=== PATIENT | female | born 1955 | race Caucasian/White ===

== ENCOUNTER 2020-08-23 09:00 | Outpatient (REF) | payer MEDICARE, SELFPAY ==
[2020-08-23 13:44] LABS: MANUAL DIFF FLAG NO
[2020-08-23 13:48] LABS: Basophils Percent Auto 0.3 % (0-2); Eosinophils Absolute Auto 0.4 X10*3/uL (0.0-0.4); Eosinophils Percent Auto 4.6 % (0-4); Hematocrit 38.9 % (37-47); Imm Gran Abs Auto 0.03 X10*3/uL (0.00-0.03); Imm Gran Pct Auto 0.4 % (0.0-0.4); Lymphocytes Absolute Auto 2.5 X10*3/uL (1.2-4.9); Lymphocytes Percent Auto 33.7 % (20-40); Mean Corpuscular HGB Conc 33.4 g/dl (31.0-35.0); Mean Corpuscular Hemoglobin 31.9 pg (27.0-33.0); Mean Corpuscular Volume 95.6 fL (80-98); Mean Platelet Volume 11.1 fL (9.4-12.3); Monocytes Absolute Auto 0.9 X10*3/uL (0.1-1.2); Monocytes Percent Auto 11.3 % (2-11); Neutrophils Absolute Auto 3.7 X10*3/uL (2.0-8.3); Neutrophils Percent Auto 49.7 % (45-73); Platelet Count 224 X10*3/uL (160-400); Red Blood Count 4.07 X10*6/uL (4.20-5.50); Red Cell Distribution Width 12.7 % (11.0-16.0); White Blood Count 7.5 X10*3/uL (4.8-10.8)
[2020-08-23 13:57] LABS: Estimated Average Glucose 160 mg/dL; Hemoglobin A1c % 7.2 %
[2020-08-23 14:08] LABS: Alanine Aminotransferase 40 U/L (0-31); Albumin Level 4.1 g/dL (3.5-5.0); Alkaline Phosphatase 62 U/L (39-117); Anion Gap 10 (12-20); Aspartate Amino Transferase 22 U/L (5-31); Bilirubin Total 0.6 mg/dL (0.0-1.0); Blood Urea Nitrogen 11 mg/dL (9-16); Calcium 8.5 mg/dL (8.4-10.2); Carbon Dioxide 28 mmol/L (22-29); Chloride 107 mmol/L (96-108); Cholesterol 145 mg/dL; Estimated Glomerular Filt Rate > 60; Glucose Fasting 89 mg/dL (60-99); HDL Cholesterol 44 mg/dL; LDL Cholesterol Calculated 80 mg/dl; Potassium 4.4 mmol/l (3.3-5.1); Sodium 141 mmol/L (135-145); Total Protein 6.1 g/dL (6.5-8.0); Triglycerides 109 mg/dL
== END 2020-08-23 09:01 | disposition home or self-care (01) ==
LOC: HO.10HDL 09:00
PROVIDERS: PCP Internal Medicine Medical Oncology; Visit Provider Internal Medicine Medical Oncology
DX: E11.9 Type 2 diabetes mellitus without complications (principal); I10 Essential (primary) hypertension; E78.2 Mixed hyperlipidemia
CPT/HCPCS: 36415; 80053; 80061; 83036; 85025

== ENCOUNTER 2020-09-26 12:45 | Outpatient (REF) | payer MEDICARE, SELFPAY | END 2020-09-26 12:46 | disposition home or self-care (01) | LOC: HO.LAB 12:45 | PROVIDERS: Visit Provider Internal Medicine | DX: Z20.822 Contact with and (suspected) exposure to COVID-19 (principal) | CPT/HCPCS: 36415; C9803; U0003; U0005 ==

== ENCOUNTER 2020-11-23 09:32 | Outpatient (REF) | payer MEDICARE, SELFPAY ==
[2020-11-23 10:03] LABS: MANUAL DIFF FLAG NO
[2020-11-23 10:19] LABS: Basophils Percent Auto 0.3 % (0-2); Eosinophils Absolute Auto 0.4 X10*3/uL (0.0-0.4); Eosinophils Percent Auto 7.4 % (0-4); Hematocrit 37.8 % (37-47); Hemoglobin 12.6 g/dl (12.0-16.0); Imm Gran Abs Auto 0.02 X10*3/uL (0.00-0.03); Imm Gran Pct Auto 0.3 % (0.0-0.4); Lymphocytes Absolute Auto 2.5 X10*3/uL (1.2-4.9); Mean Corpuscular HGB Conc 33.3 g/dl (31.0-35.0); Mean Corpuscular Hemoglobin 31.4 pg (27.0-33.0); Mean Corpuscular Volume 94.3 fL (80-98); Mean Platelet Volume 10.5 fL (9.4-12.3); Monocytes Absolute Auto 0.6 X10*3/uL (0.1-1.2); Monocytes Percent Auto 9.9 % (2-11); Neutrophils Absolute Auto 2.4 X10*3/uL (2.0-8.3); Neutrophils Percent Auto 40.1 % (45-73); Platelet Count 220 X10*3/uL (160-400); Red Blood Count 4.01 X10*6/uL (4.20-5.50); Red Cell Distribution Width 12.6 % (11.0-16.0)
[2020-11-23 10:34] LABS: Estimated Average Glucose 163 mg/dL; Hemoglobin A1C 179.3117 umol/L; Hemoglobin A1c % 7.3 %
[2020-11-23 10:48] LABS: Creatinine Urine 71.24 mg/dL; Microalbum/Creatinine Ratio Ur 16.8 ug/mg cr
[2020-11-23 10:54] LABS: Alanine Aminotransferase 32 U/L (0-31); Alkaline Phosphatase 60 U/L (39-117); Anion Gap 14 (12-20); Aspartate Amino Transferase 24 U/L (5-31); Bilirubin Total 0.6 mg/dL (0.0-1.0); Blood Urea Nitrogen 15 mg/dL (9-16); Calcium 8.9 mg/dL (8.4-10.2); Carbon Dioxide 28 mmol/L (22-29); Chloride 103 mmol/L (96-108); Cholesterol 129 mg/dL; Estimated Glomerular Filt Rate > 60; Glucose Fasting 115 mg/dL (60-99); HDL Cholesterol 40 mg/dL; LDL Cholesterol Calculated 57 mg/dl; Potassium 4.8 mmol/L (3.3-5.1); Sodium 140 mmol/L (135-145); Total Protein 6.1 g/dL (6.5-8.0); Triglycerides 163 mg/dL
== END 2020-11-23 09:33 | disposition home or self-care (01) ==
LOC: HO.10HDL 09:32
PROVIDERS: Visit Provider Internal Medicine Medical Oncology
DX: E11.29 Type 2 diabetes mellitus with other diabetic kidney complication (principal); I10 Essential (primary) hypertension; E78.2 Mixed hyperlipidemia
CPT/HCPCS: 36415; 80053; 80061; 82043; 83036; 85025

== ENCOUNTER 2021-03-28 08:53 | Outpatient (REF) | payer MEDICARE, SELFPAY ==
[2021-03-28 10:28] LABS: MANUAL DIFF FLAG NO
[2021-03-28 10:41] LABS: Basophils Percent Auto 0.3 % (0-2); Eosinophils Absolute Auto 0.5 X10*3/uL (0.0-0.4); Eosinophils Percent Auto 7.2 % (0-4); Hemoglobin 13.2 g/dl (12.0-16.0); Imm Gran Abs Auto 0.02 X10*3/uL (0.00-0.03); Imm Gran Pct Auto 0.3 % (0.0-0.4); Lymphocytes Absolute Auto 2.2 X10*3/uL (1.2-4.9); Lymphocytes Percent Auto 33.5 % (20-40); Mean Corpuscular Hemoglobin 31.4 pg (27.0-33.0); Mean Platelet Volume 10.9 fL (9.4-12.3); Monocytes Absolute Auto 0.7 X10*3/uL (0.1-1.2); Monocytes Percent Auto 11.4 % (2-11); Neutrophils Percent Auto 47.3 % (45-73); Platelet Count 211 X10*3/uL (160-400); Red Blood Count 4.21 X10*6/uL (4.20-5.50); Red Cell Distribution Width 12.7 % (11.0-16.0); White Blood Count 6.4 X10*3/uL (4.8-10.8)
[2021-03-28 10:50] LABS: Alanine Aminotransferase 36 U/L (0-31); Albumin Level 4.2 g/dL (3.5-5.0); Alkaline Phosphatase 65 U/L (39-117); Anion Gap 14 (12-20); Aspartate Amino Transferase 32 U/L (5-31); Bilirubin Total 0.9 mg/dL (0.0-1.0); Blood Urea Nitrogen 12 mg/dL (9-16); Calcium 9.2 mg/dL (8.4-10.2); Carbon Dioxide 25 mmol/L (22-29); Chloride 108 mmol/L (96-108); Cholesterol 139 mg/dL; Estimated Glomerular Filt Rate > 60; Glucose Fasting 96 mg/dL (60-99); HDL Cholesterol 45 mg/dL; LDL Cholesterol Calculated 64 mg/dl; Potassium 4.5 mmol/L (3.3-5.1); Sodium 142 mmol/L (135-145); Total Protein 6.5 g/dL (6.5-8.0); Triglycerides 154 mg/dL
[2021-03-28 10:57] LABS: Estimated Average Glucose 192 mg/dL; Hemoglobin A1c % 8.3 %
[2021-03-28 11:15] LABS: Microalbum/Creatinine Ratio Ur 34.4 ug/mg cr
== END 2021-03-28 08:54 | disposition home or self-care (01) ==
LOC: HO.10HDL 08:53
PROVIDERS: PCP Internal Medicine Medical Oncology; Visit Provider Internal Medicine Medical Oncology
DX: E11.9 Type 2 diabetes mellitus without complications (principal); I10 Essential (primary) hypertension; E66.9 Obesity, unspecified
CPT/HCPCS: 36415; 80053; 80061; 82043; 83036; 85025

== ENCOUNTER 2021-04-26 10:17 | Outpatient (REF) | payer MEDICARE, SELFPAY ==
--- NOTE | ~2021-04-26 | MM_ITS ---
MM/MM tomosynthesis screening BI IMPRESSION: No mammographic evidence of malignancy. ASSESSMENT: BI-RADS 2: Benign RECOMMENDATION: Routine annual mammography screening. This patient's information was entered into a reminder system with a target due date for their next mammogram. EXAMINATION: MM SCREENING DIGITAL BREAST TOMOSYNTHESIS, BILATERAL CLINICAL INFORMATION: Screening. Asymptomatic. The lifetime risk of breast cancer based on the Tyrer-Cuzick Model is 10%. COMPARISON: Outside mammography: 04/15/2020, 04/10/2019, 04/04/2018 ([facility]). TECHNIQUE: Digital breast tomosynthesis is performed in both the craniocaudal and mediolateral oblique views along with computer-aided detection (CAD). Synthesized 2D images are generated from the tomosynthesis. FINDINGS: There are scattered areas of fibroglandular density (ACR BI-RADS breast composition Category b). Parenchymal pattern is similar to prior outside exams. There is no developing density or interval mass or architectural abnormality. There are some regional ductal secretory calcifications upper outer right breast. The axilla and skin contours are unremarkable.
== END 2021-04-26 10:18 | disposition home or self-care (01) ==
LOC: HO.MAMMO 10:17
PROVIDERS: PCP Internal Medicine Medical Oncology; Visit Provider Internal Medicine Medical Oncology
DX: Z12.31 Encounter for screening mammogram for malignant neoplasm of breast (principal)
CPT/HCPCS: 77063; 77067

== ENCOUNTER 2021-07-26 08:05 | Outpatient (REF) | payer MEDICARE, SELFPAY ==
[2021-07-26 10:11] LABS: MANUAL DIFF FLAG NO
[2021-07-26 10:17] LABS: Basophils Percent Auto 0.3 % (0-2); Eosinophils Absolute Auto 0.4 X10*3/uL (0.0-0.4); Eosinophils Percent Auto 6.6 % (0-4); Hematocrit 40.1 % (37.0-47.0); Hemoglobin 13.3 g/dl (12.0-16.0); Imm Gran Abs Auto 0.02 X10*3/uL (0.00-0.03); Imm Gran Pct Auto 0.3 % (0.0-0.4); Lymphocytes Absolute Auto 2.4 X10*3/uL (1.2-4.9); Mean Corpuscular HGB Conc 33.2 g/dl (31.0-35.0); Mean Corpuscular Hemoglobin 31.7 pg (27.0-33.0); Mean Corpuscular Volume 95.7 fL (80.0-98.0); Mean Platelet Volume 11.1 fL (9.4-12.3); Monocytes Absolute Auto 0.7 X10*3/uL (0.1-1.2); Monocytes Percent Auto 10.4 % (2-11); Neutrophils Absolute Auto 2.9 x10*3/uL (2.0-8.3); Neutrophils Percent Auto 45.4 % (45-73); Platelet Count 209 X10*3/uL (160-400); Red Blood Count 4.19 X10*6/uL (4.20-5.50); Red Cell Distribution Width 12.5 % (11.0-16.0); White Blood Count 6.4 X10*3/uL (4.8-10.8)
[2021-07-26 10:27] LABS: Estimated Average Glucose 189 mg/dL; Hemoglobin A1c % 8.2 %
[2021-07-26 10:58] LABS: Alanine Aminotransferase 40 U/L (0-31); Albumin Level 4.2 g/dL (3.5-5.0); Alkaline Phosphatase 67 U/L (39-117); Anion Gap 14 (12-20); Aspartate Amino Transferase 32 U/L (5-31); Bilirubin Total 0.7 mg/dL (0.0-1.0); Blood Urea Nitrogen 15 mg/dL (9-16); Calcium 9.5 mg/dL (8.4-10.2); Carbon Dioxide 26 mmol/L (22-29); Chloride 106 mmol/L (96-108); Cholesterol 152 mg/dL; Estimated Glomerular Filt Rate > 60; Glucose Fasting 107 mg/dL (60-99); HDL Cholesterol 45 mg/dL; LDL Cholesterol Calculated 81 mg/dl; Potassium 4.4 mmol/L (3.3-5.1); Sodium 142 mmol/L (135-145); Total Protein 6.5 g/dL (6.5-8.0); Triglycerides 134 mg/dL
== END 2021-07-26 08:06 | disposition home or self-care (01) ==
LOC: HO.10HDL 08:05
PROVIDERS: Visit Provider Internal Medicine Medical Oncology
DX: E11.9 Type 2 diabetes mellitus without complications (principal); E78.2 Mixed hyperlipidemia; E66.9 Obesity, unspecified
CPT/HCPCS: 36415; 80053; 80061; 83036; 85025

== ENCOUNTER 2021-10-27 08:37 | Outpatient (REF) | payer MEDICARE, SELFPAY ==
[2021-10-27 12:06] LABS: MANUAL DIFF FLAG NO
[2021-10-27 12:08] LABS: Basophils Percent Auto 0.3 % (0-2); Eosinophils Absolute Auto 0.5 X10*3/uL (0.0-0.4); Eosinophils Percent Auto 7.3 % (0-4); Hematocrit 39.1 % (37.0-47.0); Hemoglobin 13.1 g/dl (12.0-16.0); Imm Gran Abs Auto 0.03 X10*3/uL (0.00-0.03); Imm Gran Pct Auto 0.5 % (0.0-0.4); Lymphocytes Absolute Auto 1.9 X10*3/uL (1.2-4.9); Lymphocytes Percent Auto 29.5 % (20-40); Mean Corpuscular HGB Conc 33.5 g/dl (31.0-35.0); Mean Corpuscular Hemoglobin 31.6 pg (27.0-33.0); Mean Corpuscular Volume 94.2 fL (80.0-98.0); Monocytes Absolute Auto 0.7 X10*3/uL (0.1-1.2); Monocytes Percent Auto 10.5 % (2-11); Neutrophils Absolute Auto 3.3 x10*3/uL (2.0-8.3); Neutrophils Percent Auto 51.9 % (45-73); Platelet Count 212 X10*3/uL (160-400); Red Blood Count 4.15 X10*6/uL (4.20-5.50); Red Cell Distribution Width 12.7 % (11.0-16.0); White Blood Count 6.3 X10*3/uL (4.8-10.8)
[2021-10-27 12:20] LABS: Estimated Average Glucose 180 mg/dL; Hemoglobin A1c % 7.9 %
[2021-10-27 12:29] LABS: Alanine Aminotransferase 29 U/L (0-31); Alkaline Phosphatase 61 U/L (39-117); Anion Gap 12 (12-20); Aspartate Amino Transferase 25 U/L (5-31); Blood Urea Nitrogen 16 mg/dL (9-16); Calcium 9.1 mg/dL (8.4-10.2); Carbon Dioxide 26 mmol/L (22-29); Chloride 107 mmol/L (96-108); Cholesterol 141 mg/dL; Estimated Glomerular Filt Rate > 60; Glucose Fasting 99 mg/dL (60-99); HDL Cholesterol 44 mg/dL; LDL Cholesterol Calculated 65 mg/dl; Potassium 4.5 mmol/L (3.3-5.1); Sodium 140 mmol/L (135-145); Total Protein 6.2 g/dL (6.5-8.0); Triglycerides 163 mg/dL
[2021-10-27 12:41] LABS: Creatinine Urine 96.98 mg/dL; Microalbum/Creatinine Ratio Ur 11.3 ug/mg cr
== END 2021-10-27 08:38 | disposition home or self-care (01) ==
LOC: HO.10HDL 08:37
PROVIDERS: Visit Provider Internal Medicine Medical Oncology
DX: E11.9 Type 2 diabetes mellitus without complications (principal); E78.2 Mixed hyperlipidemia
CPT/HCPCS: 36415; 80053; 80061; 82043; 83036; 85025

== ENCOUNTER 2022-01-25 06:27 | Outpatient (REF) | payer MEDICARE, SELFPAY ==
[2022-01-25 11:19] LABS: MANUAL DIFF FLAG NO
[2022-01-25 11:28] LABS: Basophils Percent Auto 0.4 % (0-2); Eosinophils Absolute Auto 0.4 X10*3/uL (0.0-0.4); Eosinophils Percent Auto 5.9 % (0-4); Hematocrit 39.4 % (37.0-47.0); Imm Gran Abs Auto 0.03 X10*3/uL (0.00-0.03); Imm Gran Pct Auto 0.4 % (0.0-0.4); Lymphocytes Absolute Auto 2.9 X10*3/uL (1.2-4.9); Lymphocytes Percent Auto 39.2 % (20-40); Mean Platelet Volume 11.4 fL (9.4-12.3); Monocytes Absolute Auto 0.8 X10*3/uL (0.1-1.2); Monocytes Percent Auto 10.7 % (2-11); Neutrophils Absolute Auto 3.2 x10*3/uL (2.0-8.3); Neutrophils Percent Auto 43.4 % (45-73); Platelet Count 222 X10*3/uL (160-400); Red Blood Count 4.06 X10*6/uL (4.20-5.50); Red Cell Distribution Width 12.6 % (11.0-16.0); White Blood Count 7.3 X10*3/uL (4.8-10.8)
[2022-01-25 11:32] LABS: Estimated Average Glucose 180 mg/dL; Hemoglobin A1c % 7.9 %
[2022-01-25 11:42] LABS: Creatinine Urine 38.49 mg/dL; Microalbum/Creatinine Ratio Ur 18.1 ug/mg cr
[2022-01-25 11:49] LABS: Alanine Aminotransferase 26 U/L (0-31); Albumin Level 3.9 g/dL (3.5-5.0); Alkaline Phosphatase 63 U/L (39-117); Anion Gap 14 (12-20); Aspartate Amino Transferase 20 U/L (5-31); Bilirubin Total 0.5 mg/dL (0.0-1.0); Blood Urea Nitrogen 14 mg/dL (9-16); Calcium 9.4 mg/dL (8.4-10.2); Carbon Dioxide 25 mmol/L (22-29); Chloride 105 mmol/L (96-108); Cholesterol 142 mg/dL; Estimated Glomerular Filt Rate > 60; Glucose Fasting 140 mg/dL (60-99); HDL Cholesterol 45 mg/dL; LDL Cholesterol Calculated 64 mg/dl; Potassium 4.5 mmol/L (3.3-5.1); Sodium 139 mmol/L (135-145); Total Protein 6.2 g/dL (6.5-8.0); Triglycerides 169 mg/dL
== END 2022-01-25 06:28 | disposition home or self-care (01) ==
LOC: HO.HMGCLDS 06:27
PROVIDERS: PCP Internal Medicine Medical Oncology; Visit Provider Internal Medicine Medical Oncology
DX: E11.9 Type 2 diabetes mellitus without complications (principal); I10 Essential (primary) hypertension; E78.2 Mixed hyperlipidemia
CPT/HCPCS: 36415; 80053; 80061; 82043; 83036; 85025

== ENCOUNTER 2022-04-26 06:53 | Outpatient (REF) | payer MEDICARE, SELFPAY ==
[2022-04-26 11:36] LABS: MANUAL DIFF FLAG NO
[2022-04-26 11:50] LABS: Basophils Percent Auto 0.4 % (0-2); Eosinophils Absolute Auto 0.5 X10*3/uL (0.0-0.4); Eosinophils Percent Auto 6.4 % (0-4); Hematocrit 39.9 % (37.0-47.0); Hemoglobin 13.3 g/dl (12.0-16.0); Imm Gran Abs Auto 0.03 X10*3/uL (0.00-0.03); Imm Gran Pct Auto 0.4 % (0.0-0.4); Lymphocytes Percent Auto 38.8 % (20-40); Mean Corpuscular HGB Conc 33.3 g/dl (31.0-35.0); Mean Corpuscular Hemoglobin 31.8 pg (27.0-33.0); Mean Corpuscular Volume 95.5 fL (80.0-98.0); Mean Platelet Volume 11.4 fL (9.4-12.3); Monocytes Absolute Auto 0.9 X10*3/uL (0.1-1.2); Monocytes Percent Auto 11.7 % (2-11); Neutrophils Absolute Auto 3.2 x10*3/uL (2.0-8.3); Neutrophils Percent Auto 42.3 % (45-73); Platelet Count 230 X10*3/uL (160-400); Red Blood Count 4.18 X10*6/uL (4.20-5.50); Red Cell Distribution Width 12.9 % (11.0-16.0); White Blood Count 7.7 X10*3/uL (4.8-10.8)
[2022-04-26 11:53] LABS: Estimated Average Glucose 177 mg/dL; Hemoglobin A1c % 7.8 %
[2022-04-26 12:08] LABS: Alanine Aminotransferase 40 U/L (0-31); Albumin Level 4.1 g/dL (3.5-5.0); Alkaline Phosphatase 73 U/L (39-117); Anion Gap 16 (12-20); Aspartate Amino Transferase 28 U/L (5-31); Bilirubin Total 0.4 mg/dL (0.0-1.0); Blood Urea Nitrogen 15 mg/dL (9-16); Calcium 9.3 mg/dL (8.4-10.2); Carbon Dioxide 25 mmol/L (22-29); Chloride 105 mmol/L (96-108); Cholesterol 163 mg/dL; Estimated Glomerular Filt Rate > 60; Glucose Fasting 143 mg/dL (60-99); HDL Cholesterol 49 mg/dL; LDL Cholesterol Calculated 79 mg/dl; Potassium 4.8 mmol/L (3.3-5.1); Sodium 141 mmol/L (135-145); Total Protein 6.4 g/dL (6.5-8.0); Triglycerides 177 mg/dL
== END 2022-04-26 06:54 | disposition home or self-care (01) ==
LOC: HO.HMGCLDS 06:53
PROVIDERS: PCP Internal Medicine Medical Oncology; Visit Provider Internal Medicine Medical Oncology
DX: E11.9 Type 2 diabetes mellitus without complications (principal); E78.2 Mixed hyperlipidemia; I10 Essential (primary) hypertension
CPT/HCPCS: 36415; 80053; 80061; 83036; 85025

== ENCOUNTER 2022-04-27 10:37 | Outpatient (REF) | payer MEDICARE, SELFPAY ==
--- NOTE | ~2022-04-27 | MM_ITS ---
EXAMINATION: MM SCREENING DIGITAL BREAST TOMOSYNTHESIS, BILATERAL CLINICAL INFORMATION: Screening. Asymptomatic. The lifetime risk of breast cancer based on the Tyrer-Cuzick Model is 10%. COMPARISON: Mammography: 04/26/2021; outside mammography 04/15/2020, 04/10/2019 ([facility]). TECHNIQUE: Digital breast tomosynthesis is performed in both the craniocaudal and mediolateral oblique views along with computer-aided detection (CAD). Synthesized 2D images are generated from the tomosynthesis. FINDINGS: There are scattered areas of fibroglandular density (ACR BI-RADS breast composition Category b). Parenchymal pattern is similar to prior studies. There is no developing density or interval mass or architectural abnormality. There is probable stable intramammary node medial left breast. Scattered benign predominantly ductal secretory regional calcifications again noted upper outer right breast. The axilla and skin contours are unremarkable. MM/MM tomosynthesis screening BI IMPRESSION: No mammographic evidence of malignancy. ASSESSMENT: BI-RADS 2: Benign RECOMMENDATION: Routine annual mammography screening. This patient's information was entered into a reminder system with a target due date for their next mammogram.
== END 2022-04-27 10:38 | disposition home or self-care (01) ==
LOC: HO.MAMMO 10:37
PROVIDERS: PCP Internal Medicine Medical Oncology; Visit Provider Internal Medicine Medical Oncology
DX: Z12.31 Encounter for screening mammogram for malignant neoplasm of breast (principal)
CPT/HCPCS: 77063; 77067

== ENCOUNTER 2022-07-12 06:16 | Outpatient (REF) | payer MEDICARE, SELFPAY ==
[2022-07-12 11:24] LABS: MANUAL DIFF FLAG NO
[2022-07-12 11:43] LABS: Basophils Percent Auto 0.4 % (0-2); Eosinophils Absolute Auto 0.5 X10*3/uL (0.0-0.4); Eosinophils Percent Auto 7.1 % (0-4); Hematocrit 41.2 % (37.0-47.0); Hemoglobin 13.5 g/dl (12.0-16.0); Imm Gran Abs Auto 0.02 X10*3/uL (0.00-0.03); Imm Gran Pct Auto 0.3 % (0.0-0.4); Lymphocytes Absolute Auto 3.2 X10*3/uL (1.2-4.9); Mean Corpuscular HGB Conc 32.8 g/dl (31.0-35.0); Mean Corpuscular Hemoglobin 31.6 pg (27.0-33.0); Mean Corpuscular Volume 96.5 fL (80.0-98.0); Monocytes Absolute Auto 0.7 X10*3/uL (0.1-1.2); Monocytes Percent Auto 10.5 % (2-11); Neutrophils Absolute Auto 2.5 x10*3/uL (2.0-8.3); Neutrophils Percent Auto 35.7 % (45-73); Platelet Count 216 X10*3/uL (160-400); Red Blood Count 4.27 X10*6/uL (4.20-5.50); Red Cell Distribution Width 12.9 % (11.0-16.0); White Blood Count 6.9 X10*3/uL (4.8-10.8)
[2022-07-12 12:07] LABS: Alanine Aminotransferase 34 U/L (0-31); Albumin Level 4.1 g/dL (3.5-5.0); Alkaline Phosphatase 67 U/L (39-117); Anion Gap 11 (12-20); Aspartate Amino Transferase 24 U/L (5-31); Bilirubin Total 0.6 mg/dL (0.0-1.0); Blood Urea Nitrogen 14 mg/dL (9-16); Calcium 9.2 mg/dL (8.4-10.2); Carbon Dioxide 29 mmol/L (22-29); Chloride 104 mmol/L (96-108); Cholesterol 224 mg/dL; Estimated Glomerular Filt Rate > 60; Glucose Fasting 75 mg/dL (60-99); HDL Cholesterol 44 mg/dL; LDL Cholesterol Calculated 138 mg/dl; Sodium 140 mmol/L (135-145); Total Protein 6.4 g/dL (6.5-8.0); Triglycerides 214 mg/dL
[2022-07-12 12:17] LABS: Creatinine Urine 156.75 mg/dL; Microalbum/Creatinine Ratio Ur 12.7 ug/mg cr
[2022-07-12 12:44] LABS: Estimated Average Glucose 180 mg/dL; Hemoglobin A1c % 7.9 %
== END 2022-07-12 06:17 | disposition home or self-care (01) ==
LOC: HO.HMGCLDS 06:16
PROVIDERS: PCP Internal Medicine Medical Oncology; Visit Provider Internal Medicine Medical Oncology
DX: E11.9 Type 2 diabetes mellitus without complications (principal); E66.9 Obesity, unspecified; I10 Essential (primary) hypertension
CPT/HCPCS: 36415; 80053; 80061; 82043; 83036; 85025

== ENCOUNTER 2022-11-14 08:00 | Outpatient (REF) | payer MEDICARE, SELFPAY ==
[2022-11-14 11:46] LABS: MANUAL DIFF FLAG NO
[2022-11-14 11:58] LABS: Basophils Percent Auto 0.4 % (0-2); Eosinophils Absolute Auto 0.3 X10*3/uL (0.0-0.4); Eosinophils Percent Auto 4.2 % (0-4); Hematocrit 41.4 % (37.0-47.0); Hemoglobin 13.7 g/dl (12.0-16.0); Imm Gran Abs Auto 0.04 X10*3/uL (0.00-0.03); Imm Gran Pct Auto 0.5 % (0.0-0.4); Lymphocytes Absolute Auto 1.4 X10*3/uL (1.2-4.9); Mean Corpuscular HGB Conc 33.1 g/dl (31.0-35.0); Mean Corpuscular Hemoglobin 31.7 pg (27.0-33.0); Mean Corpuscular Volume 95.8 fL (80.0-98.0); Mean Platelet Volume 11.7 fL (9.4-12.3); Monocytes Absolute Auto 0.8 X10*3/uL (0.1-1.2); Monocytes Percent Auto 9.9 % (2-11); Neutrophils Absolute Auto 5.4 x10*3/uL (2.0-8.3); Platelet Count 232 X10*3/uL (160-400); Red Blood Count 4.32 X10*6/uL (4.20-5.50); Red Cell Distribution Width 12.7 % (11.0-16.0)
[2022-11-14 12:12] LABS: Creatinine Urine 84.15 mg/dL
[2022-11-14 12:33] LABS: Alanine Aminotransferase 38 U/L (0-31); Albumin Level 4.2 g/dL (3.5-5.0); Alkaline Phosphatase 79 U/L (39-117); Anion Gap 16 (12-20); Aspartate Amino Transferase 36 U/L (5-31); Bilirubin Total 1.1 mg/dL (0.0-1.0); Blood Urea Nitrogen 15 mg/dL (9-16); Calcium 9.5 mg/dL (8.4-10.2); Carbon Dioxide 24 mmol/L (22-29); Chloride 107 mmol/L (96-108); Cholesterol 155 mg/dL; Estimated Glomerular Filt Rate > 60; Glucose Fasting 143 mg/dL (60-99); HDL Cholesterol 47 mg/dL; LDL Cholesterol Calculated 73 mg/dl; Potassium 4.7 mmol/L (3.3-5.1); Sodium 142 mmol/L (135-145); Total Protein 6.4 g/dL (6.5-8.0); Triglycerides 179 mg/dL
[2022-11-14 12:48] LABS: Estimated Average Glucose 203 mg/dL; Hemoglobin A1c % 8.7 %
== END 2022-11-14 08:01 | disposition home or self-care (01) ==
LOC: HO.HMGCLDS 08:00
PROVIDERS: PCP Internal Medicine Medical Oncology; Visit Provider Internal Medicine Medical Oncology
DX: Z00.00 Encounter for general adult medical examination without abnormal findings (principal); E11.9 Type 2 diabetes mellitus without complications
CPT/HCPCS: 36415; 80053; 80061; 82043; 83036; 85025

== ENCOUNTER 2023-03-19 06:46 | Outpatient (REF) | payer MEDICARE, SELFPAY ==
[2023-03-19 11:15] LABS: MANUAL DIFF FLAG NO
[2023-03-19 12:00] LABS: Basophils Percent Auto 0.3 % (0-2); Eosinophils Absolute Auto 0.6 X10*3/uL (0.0-0.4); Eosinophils Percent Auto 8.5 % (0-4); Hematocrit 41.7 % (37.0-47.0); Hemoglobin 13.7 g/dl (12.0-16.0); Imm Gran Abs Auto 0.03 X10*3/uL (0.00-0.03); Imm Gran Pct Auto 0.4 % (0.0-0.4); Lymphocytes Absolute Auto 2.5 X10*3/uL (1.2-4.9); Lymphocytes Percent Auto 34.7 % (20-40); Mean Corpuscular HGB Conc 32.9 g/dl (31.0-35.0); Mean Corpuscular Hemoglobin 31.6 pg (27.0-33.0); Mean Corpuscular Volume 96.3 fL (80.0-98.0); Monocytes Absolute Auto 0.7 X10*3/uL (0.1-1.2); Monocytes Percent Auto 9.7 % (2-11); Neutrophils Absolute Auto 3.4 x10*3/uL (2.0-8.3); Neutrophils Percent Auto 46.4 % (45-73); Platelet Count 196 X10*3/uL (160-400); Red Blood Count 4.33 X10*6/uL (4.20-5.50); Red Cell Distribution Width 12.5 % (11.0-16.0); White Blood Count 7.3 X10*3/uL (4.8-10.8)
[2023-03-19 12:08] LABS: Estimated Average Glucose 192 mg/dL; Hemoglobin A1c % 8.3 %
[2023-03-19 12:30] LABS: Alanine Aminotransferase 34 U/L (0-31); Alkaline Phosphatase 92 U/L (39-117); Anion Gap 11 (12-20); Aspartate Amino Transferase 27 U/L (5-31); Bilirubin Total 0.5 mg/dL (0.0-1.0); Blood Urea Nitrogen 15 mg/dL (9-16); Calcium 9.3 mg/dL (8.4-10.2); Carbon Dioxide 28 mmol/L (22-29); Chloride 107 mmol/L (96-108); Cholesterol 130 mg/dL; Estimated Glomerular Filt Rate > 60; Glucose Fasting 101 mg/dL (60-99); HDL Cholesterol 41 mg/dL; LDL Cholesterol Calculated 56 mg/dl; Potassium 4.4 mmol/L (3.3-5.1); Sodium 142 mmol/L (135-145); Total Protein 6.6 g/dL (6.5-8.0); Triglycerides 168 mg/dL
[2023-03-19 12:55] LABS: Microalbumin Urine < 5.0 mg/L
== END 2023-03-19 06:47 | disposition home or self-care (01) ==
LOC: HO.HMGCLDS 06:46
PROVIDERS: PCP Internal Medicine Medical Oncology; Visit Provider Internal Medicine Medical Oncology
DX: E11.9 Type 2 diabetes mellitus without complications (principal); E78.5 Hyperlipidemia, unspecified; I10 Essential (primary) hypertension; E66.9 Obesity, unspecified
CPT/HCPCS: 36415; 80053; 80061; 82043; 83036; 85025

== ENCOUNTER 2023-05-03 10:48 | Outpatient (REF) | payer MEDICARE, SELFPAY | END 2023-05-03 10:49 | disposition home or self-care (01) | LOC: HO.MAMMO 10:48 | PROVIDERS: PCP Internal Medicine Medical Oncology; Visit Provider Internal Medicine Medical Oncology | DX: Z12.31 Encounter for screening mammogram for malignant neoplasm of breast (principal) | CPT/HCPCS: 77063; 77067 ==

== ENCOUNTER → 2023-05-03 11:00 | Outpatient (BNV) | payer MEDICARE, SELFPAY | PROVIDERS: PCP Internal Medicine Medical Oncology; Visit Provider Radiology Diagnostic Radiology | DX: Z12.31 Encounter for screening mammogram for malignant neoplasm of breast (principal) | CPT/HCPCS: 77063; 77067 ==

== ENCOUNTER 2023-07-15 07:38 | Outpatient (REF) | payer MEDICARE, SELFPAY ==
[2023-07-15 11:20] LABS: MANUAL DIFF FLAG NO
[2023-07-15 11:38] LABS: Basophils Percent Auto 0.3 % (0-2); Eosinophils Absolute Auto 0.3 X10*3/uL (0.0-0.4); Eosinophils Percent Auto 3.7 % (0-4); Hematocrit 41.1 % (37.0-47.0); Hemoglobin 13.4 g/dl (12.0-16.0); Imm Gran Abs Auto 0.03 X10*3/uL (0.00-0.03); Imm Gran Pct Auto 0.4 % (0.0-0.4); Lymphocytes Absolute Auto 2.6 X10*3/uL (1.2-4.9); Lymphocytes Percent Auto 37.1 % (20-40); Mean Corpuscular HGB Conc 32.6 g/dl (31.0-35.0); Mean Corpuscular Hemoglobin 31.9 pg (27.0-33.0); Mean Corpuscular Volume 97.9 fL (80.0-98.0); Mean Platelet Volume 11.2 fL (9.4-12.3); Monocytes Absolute Auto 0.7 X10*3/uL (0.1-1.2); Monocytes Percent Auto 10.5 % (2-11); Neutrophils Absolute Auto 3.4 x10*3/uL (2.0-8.3); Platelet Count 202 X10*3/uL (160-400); Red Cell Distribution Width 12.7 % (11.0-16.0); White Blood Count 7.1 X10*3/uL (4.8-10.8)
[2023-07-15 11:52] LABS: Estimated Average Glucose 186 mg/dL; Hemoglobin A1c % 8.1 % (<6.0)
[2023-07-15 12:00] LABS: Creatinine Urine 118.49 mg/dL; Microalbum/Creatinine Ratio Ur 18.5 ug/mg cr (<30)
[2023-07-15 12:30] LABS: Alanine Aminotransferase 45 U/L (0-31); Albumin Level 4.1 g/dL (3.5-5.0); Alkaline Phosphatase 72 U/L (39-117); Anion Gap 11 (12-20); Aspartate Amino Transferase 40 U/L (5-31); Bilirubin Total 0.7 mg/dL (0.0-1.0); Blood Urea Nitrogen 16 mg/dL (9-16); Calcium 9.4 mg/dL (8.4-10.2); Carbon Dioxide 28 mmol/L (22-29); Chloride 107 mmol/L (96-108); Cholesterol 134 mg/dL (<200); Estimated Glomerular Filt Rate > 60; Glucose Fasting 84 mg/dL (60-99); HDL Cholesterol 47 mg/dL (>40); LDL Cholesterol Calculated 60 mg/dL (<100); Potassium 3.6 mmol/L (3.3-5.1); Sodium 142 mmol/L (135-145); Total Protein 6.6 g/dL (6.5-8.0); Triglycerides 139 mg/dL (<150)
== END 2023-07-15 07:39 | disposition home or self-care (01) ==
LOC: HO.HMGCLDS 07:38
PROVIDERS: PCP Internal Medicine Medical Oncology; Visit Provider Internal Medicine Medical Oncology
DX: E11.9 Type 2 diabetes mellitus without complications (principal); I10 Essential (primary) hypertension; E78.2 Mixed hyperlipidemia; E66.9 Obesity, unspecified
CPT/HCPCS: 36415; 80053; 80061; 82043; 82570; 83036; 85025

== ENCOUNTER 2023-11-02 06:38 | Outpatient (REF) | payer MEDICARE, SELFPAY ==
[2023-11-02 11:09] LABS: MANUAL DIFF FLAG NO
[2023-11-02 11:13] LABS: Basophils Percent Auto 0.3 % (0-2); Eosinophils Absolute Auto 0.5 X10*3/uL (0.0-0.4); Eosinophils Percent Auto 7.4 % (0-4); Hematocrit 40.5 % (37.0-47.0); Hemoglobin 13.2 g/dl (12.0-16.0); Imm Gran Abs Auto 0.02 X10*3/uL (0.00-0.03); Imm Gran Pct Auto 0.3 % (0.0-0.4); Lymphocytes Absolute Auto 2.4 X10*3/uL (1.2-4.9); Lymphocytes Percent Auto 35.4 % (20-40); Mean Corpuscular HGB Conc 32.6 g/dl (31.0-35.0); Mean Corpuscular Hemoglobin 32.1 pg (27.0-33.0); Mean Corpuscular Volume 98.5 fL (80.0-98.0); Monocytes Absolute Auto 0.8 X10*3/uL (0.1-1.2); Monocytes Percent Auto 11.7 % (2-11); Neutrophils Absolute Auto 3.1 x10*3/uL (2.0-8.3); Neutrophils Percent Auto 44.9 % (45-73); Platelet Count 194 X10*3/uL (160-400); Red Blood Count 4.11 X10*6/uL (4.20-5.50); White Blood Count 6.8 X10*3/uL (4.8-10.8)
[2023-11-02 11:23] LABS: Estimated Average Glucose 183 mg/dL
[2023-11-02 11:59] LABS: Creatinine Urine 52.93 mg/dL; Microalbum/Creatinine Ratio Ur 28.3 ug/mg cr (<30)
[2023-11-02 12:10] LABS: Alanine Aminotransferase 51 U/L (0-31); Alkaline Phosphatase 79 U/L (39-117); Anion Gap 11 (12-20); Aspartate Amino Transferase 43 U/L (5-31); Bilirubin Total 0.4 mg/dL (0.0-1.0); Blood Urea Nitrogen 14 mg/dL (9-16); Calcium 9.4 mg/dL (8.4-10.2); Carbon Dioxide 26 mmol/L (22-29); Chloride 108 mmol/L (96-108); Cholesterol 131 mg/dL (<200); Estimated Glomerular Filt Rate > 60; Glucose Fasting 123 mg/dL (60-99); HDL Cholesterol 45 mg/dL (>40); LDL Cholesterol Calculated 60 mg/dL (<100); Potassium 4.3 mmol/L (3.3-5.1); Sodium 141 mmol/L (135-145); Total Protein 6.6 g/dL (6.5-8.0); Triglycerides 134 mg/dL (<150)
== END 2023-11-02 06:39 | disposition home or self-care (01) ==
LOC: HO.HMGCLDS 06:38
PROVIDERS: PCP Internal Medicine Medical Oncology; Visit Provider Internal Medicine Medical Oncology
DX: E11.9 Type 2 diabetes mellitus without complications (principal); E78.2 Mixed hyperlipidemia; E66.9 Obesity, unspecified
CPT/HCPCS: 36415; 80053; 80061; 82043; 82570; 83036; 85025

== ENCOUNTER 2024-02-28 06:20 | Outpatient (REF) | payer MEDICARE, SELFPAY ==
[2024-02-28 10:24] LABS: MANUAL DIFF FLAG NO
[2024-02-28 10:33] LABS: Basophils Percent Auto 0.3 % (0-2); Eosinophils Absolute Auto 0.2 X10*3/uL (0.0-0.4); Eosinophils Percent Auto 2.9 % (0-4); Hematocrit 39.3 % (37.0-47.0); Hemoglobin 13.2 g/dl (12.0-16.0); Imm Gran Abs Auto 0.03 X10*3/uL (0.00-0.03); Imm Gran Pct Auto 0.4 % (0.0-0.4); Lymphocytes Absolute Auto 2.9 X10*3/uL (1.2-4.9); Lymphocytes Percent Auto 36.3 % (20-40); Mean Corpuscular HGB Conc 33.6 g/dl (31.0-35.0); Mean Corpuscular Hemoglobin 32.4 pg (27.0-33.0); Mean Corpuscular Volume 96.6 fL (80.0-98.0); Mean Platelet Volume 11.7 fL (9.4-12.3); Monocytes Absolute Auto 0.8 X10*3/uL (0.1-1.2); Monocytes Percent Auto 10.4 % (2-11); Neutrophils Absolute Auto 3.9 x10*3/uL (2.0-8.3); Neutrophils Percent Auto 49.7 % (45-73); Platelet Count 189 X10*3/uL (160-400); Red Blood Count 4.07 X10*6/uL (4.20-5.50); White Blood Count 7.9 X10*3/uL (4.8-10.8)
[2024-02-28 10:43] LABS: Estimated Average Glucose 197 mg/dL; Hemoglobin A1c % 8.5 % (<6.0)
[2024-02-28 10:45] LABS: Alanine Aminotransferase 55 U/L (0-31); Albumin Level 4.1 g/dL (3.5-5.0); Alkaline Phosphatase 77 U/L (39-117); Anion Gap 13 (12-20); Aspartate Amino Transferase 46 U/L (5-31); Bilirubin Total 0.7 mg/dL (0.0-1.0); Blood Urea Nitrogen 17 mg/dL (9-16); Calcium 9.2 mg/dL (8.4-10.2); Carbon Dioxide 23 mmol/L (22-29); Chloride 108 mmol/L (96-108); Cholesterol 119 mg/dL (<200); Estimated Glomerular Filt Rate > 60; Glucose Fasting 86 mg/dL (60-99); HDL Cholesterol 38 mg/dL (>40); LDL Cholesterol Calculated 38 mg/dL (<100); Potassium 3.8 mmol/L (3.3-5.1); Sodium 140 mmol/L (135-145); Total Protein 6.7 g/dL (6.5-8.0); Triglycerides 217 mg/dL (<150)
[2024-02-28 11:09] LABS: Creatinine Urine 139.35 mg/dL; Microalbum/Creatinine Ratio Ur 12.9 ug/mg cr (<30)
== END 2024-02-28 06:21 | disposition home or self-care (01) ==
LOC: HO.HMGCLDS 06:20
PROVIDERS: PCP Internal Medicine Medical Oncology; Visit Provider Internal Medicine Medical Oncology
DX: Z00.00 Encounter for general adult medical examination without abnormal findings (principal); E11.9 Type 2 diabetes mellitus without complications; E66.3 Overweight
CPT/HCPCS: 36415; 80053; 80061; 82043; 82570; 83036; 85025

== ENCOUNTER 2024-05-05 10:35 | Outpatient (REF) | payer MEDICARE, SELFPAY ==
--- NOTE | ~2024-05-05 | MM_ITS ---
EXAMINATION: MM SCREENING DIGITAL BREAST TOMOSYNTHESIS, BILATERAL CLINICAL INFORMATION: Screening. Asymptomatic. COMPARISON: Mammography: Comparison is made with available priors TECHNIQUE: Digital breast mammography with tomosynthesis is performed in both the craniocaudal and mediolateral oblique views along with computer-aided detection (CAD). FINDINGS: The breasts are heterogeneously dense, which may obscure small masses (ACR BI-RADS breast composition Category c). Bilateral scattered focal asymmetries are stable. There are no significant masses, abnormal calcifications, or other abnormalities. MM/MM tomosynthesis screening BI IMPRESSION: No mammographic evidence of malignancy. ASSESSMENT: BI-RADS BI-RADS 2 - Benign Findings RECOMMENDATION: Routine annual mammography screening. 1 year F/U This examination should not preclude the clinical evaluation of a suspicious palpable abnormality. This patient's information was entered into a reminder system with a target due date for their next mammogram. Electronically signed by: Vickie Machuca DO 05/19/2024 10:14 AM EDT
== END 2024-05-05 10:36 | disposition home or self-care (01) ==
LOC: HO.MAMMO 10:35
PROVIDERS: PCP Internal Medicine Medical Oncology; Visit Provider Internal Medicine Medical Oncology
DX: Z12.31 Encounter for screening mammogram for malignant neoplasm of breast (principal)
CPT/HCPCS: 77063; 77067

== ENCOUNTER → 2024-05-05 11:00 | Outpatient (BNV) | payer MEDICARE, SELFPAY | PROVIDERS: PCP Internal Medicine Medical Oncology; Visit Provider Internal Medicine | DX: Z12.31 Encounter for screening mammogram for malignant neoplasm of breast (principal) | CPT/HCPCS: 77063; 77067 ==

== ENCOUNTER 2024-06-05 08:07 | Outpatient (REF) | payer MEDICARE, SELFPAY ==
[2024-06-05 10:12] LABS: MANUAL DIFF FLAG NO
[2024-06-05 10:22] LABS: Basophils Percent Auto 0.5 % (0-2); Eosinophils Absolute Auto 0.4 X10*3/uL (0.0-0.4); Eosinophils Percent Auto 5.7 % (0-4); Hematocrit 37.5 % (37.0-47.0); Hemoglobin 12.5 g/dl (12.0-16.0); Imm Gran Abs Auto 0.03 X10*3/uL (0.00-0.03); Imm Gran Pct Auto 0.5 % (0.0-0.4); Lymphocytes Absolute Auto 1.9 X10*3/uL (1.2-4.9); Mean Corpuscular HGB Conc 33.3 g/dl (31.0-35.0); Mean Corpuscular Hemoglobin 32.3 pg (27.0-33.0); Mean Corpuscular Volume 96.9 fL (80.0-98.0); Mean Platelet Volume 11.2 fL (9.4-12.3); Monocytes Absolute Auto 0.7 X10*3/uL (0.1-1.2); Monocytes Percent Auto 11.1 % (2-11); Neutrophils Absolute Auto 3.6 x10*3/uL (2.0-8.3); Neutrophils Percent Auto 53.2 % (45-73); Platelet Count 164 X10*3/uL (160-400); Red Blood Count 3.87 X10*6/uL (4.20-5.50); Red Cell Distribution Width 13.1 % (11.0-16.0); White Blood Count 6.7 X10*3/uL (4.8-10.8)
[2024-06-05 10:56] LABS: Estimated Average Glucose 203 mg/dL; Hemoglobin A1C 248.9167 umol/L; Hemoglobin A1c % 8.7 % (<6.0); Total Hemoglobin (HGBA1C) 3481.6674 umol/L
[2024-06-05 11:03] LABS: Alanine Aminotransferase 40 U/L (0-31); Albumin Level 3.9 g/dL (3.5-5.0); Alkaline Phosphatase 83 U/L (39-117); Anion Gap 12 (12-20); Aspartate Amino Transferase 33 U/L (5-31); Bilirubin Total 0.5 mg/dL (0.0-1.0); Blood Urea Nitrogen 11 mg/dL (9-16); Calcium 9.2 mg/dL (8.4-10.2); Carbon Dioxide 27 mmol/L (22-29); Chloride 107 mmol/L (96-108); Cholesterol 134 mg/dL (<200); Estimated Glomerular Filt Rate > 60; Glucose Fasting 98 mg/dL (60-99); HDL Cholesterol 44 mg/dL (>40); LDL Cholesterol Calculated 54 mg/dL (<100); Potassium 3.9 mmol/L (3.3-5.1); Sodium 142 mmol/L (135-145); Total Protein 6.4 g/dL (6.5-8.0); Triglycerides 182 mg/dL (<150)
[2024-06-05 11:18] LABS: Creatinine Urine 102.31 mg/dL; Microalbum/Creatinine Ratio Ur 26.3 ug/mg cr (<30)
== END 2024-06-05 08:08 | disposition home or self-care (01) ==
LOC: HO.HMGCLDS 08:07
PROVIDERS: PCP Internal Medicine Medical Oncology; Visit Provider Internal Medicine Medical Oncology
DX: E11.9 Type 2 diabetes mellitus without complications (principal); E78.2 Mixed hyperlipidemia; E66.3 Overweight
CPT/HCPCS: 36415; 80053; 80061; 82043; 82570; 83036; 85025

== ENCOUNTER 2024-11-03 06:11 | Outpatient (REF) | payer MEDICARE, SELFPAY ==
--- OUTSIDE RECORDS SUMMARY | 2024-11-03 06:14 | XMS_ITS ---
Author Organization Harjeet Herman III, MD Address [address] [place] [address] Care Team Providers Care Cdl Company Driver Name Role Phone Harjeet Herman Primary Care Provider Medications Medication SIG (Take, Route, Frequency, Duration) Notes Start Date End Date Status Basaglar KwikPen 100 UNIT/ML 100 units Subcutaneous every evening for 90 days disp 90 doses please 09/22/2024 Active Social History Sex Assigned At : Social History Observation Description Sex Assigned At Female Encounters Encounter Location Date Provider Diagnosis Harjeet Herman III, MD [address] [place] [address] [address] [place] [facility] [address] 09/22/2024 Harjeet Herman Assessments Encounter Date Diagnosis (ICD Code) Assessment Notes Treatment Notes Treatment Clinical Notes 09/22/2024 Other [facility] Respon se got Denied on 2024-09-24 13:20:05 for 'Basaglar KwikPen 100 UNIT/ML Solution Pen-injector'Pharmac y Notes: Prescription not found. Contact Pharmacy by other means Plan Of Treatment Medication Medication Name Sig Start Date Stop Date Notes Basaglar KwikPen 100 UNIT/ML 100 units Subcutaneous every evening for 90 days 09/22/2024 disp 90 doses please Treatment Notes Assessment Notes Other CancelRx Response go t Denied on 2024-09-24 13:20:05 for 'Basaglar KwikPen 100 UNIT/ML Solution Pen-injector'Pharmacy Notes: Prescription not found. Contact Pharmacy by other means Next Appt Details Provider Name:Harjeet Herman, 11/09/2024 09:30:00 AM, [address] [place] [address] [address], [place], [id number], Progress Notes * DOUGLAS NUNODOB: [birth year] (69 yo F)Acc No.[id number]:09/22/2024 Patient:?DOUGLAS NUNO :1955???Age:69 Y???Sex:Female Address:[address] [place] [address] [place], [id number] * Refills? Start Basaglar KwikPen Solution Pen-injector, 100 UNIT/ML, Subcutaneous, 90, 100 units, every evening, 90 days, Refills=3 * true * Date:? Generated for Evgeny jones/Bernabe/Octavioitting on:?11/03/2024 06:14 AM EDT
--- OUTSIDE RECORDS SUMMARY | 2024-11-03 06:14 | XMS_ITS ---
Author Organization Harjeet Herman III, MD Address [address] [place] [address] [place] [address] Care Team Providers Care Developer Designer Name Role Phone Harjeet Herman Primary Care Provider REASON FOR VISIT Message Medications Medication SIG (Take, Route, Fr equency, Duration) Notes Start Date End Date Status Lantus SoloStar 100 UNIT/ML INJECT 100 UNITS EVERY EVENING SUBCUTANEOUSLY Active Social History Sex Assigned At : Social History Observation Description Sex Assigned At Female Encounters Encounter Location Date Provider Diagnosis Harjeet Herman III, MD [address] [place] [address] [place] [phone] 09/24/2024 Harjeet Herman Plan Of Treatment Medication Medication Name Sig Start Date Stop Date Notes Basaglar KwikPen 100 UNIT/ML 100 units Subcutaneous every evening 09/22/2024 disp 90 doses please Lantus SoloStar 100 UNIT/ML INJECT 100 UNITS EVERY EVENING SUBCUTANEOUSLY Next Appt Details Provider Name:Harjeet Herman, 11/09/2024 09:30:00 AM, [address] [place] [address] [place], [address], Progress Notes * DOUGLAS NUNODOB: [birth year] (69 yo F)Acc No.[id number]:09/24/2024 Patient:?NURYSEDYDOUGLAS :1955???Age:69 Y???Sex:Female Address:[address] [place], [place] [address], [address] * Refills? Stop Basaglar KwikPen Solution Pen-injector, 100 UNIT/ML, Subcutaneous, 100 units, every evening Continue Lantus SoloStar Solution Pen-injector, 100 UNIT/ML, INJECT 100 UNITS EVERY EVENING SUBCUTANEOUSLY * true * Date:? Generated for Evgeny jones/Bernabe/Caitysmitting on:?11/03/2024 06:14 AM EDT
--- OUTSIDE RECORDS SUMMARY | 2024-11-03 06:14 | XMS_ITS | Patient Health Record ---
Author Organization Harjeet Herman III, MD Address [address] [place] [address] Care Team Providers Care Pipelaying Fitter Name Role Phone Harjeet Herman Primary Care Provider Allergies Allergen (clinical drug ingredient) Drug/Non Drug Allergy documented on EMR Reaction Allergy Type Onset Date Status No Known Drug Allergy Unknown Drug Allergy Active Results Component Value Reference Range Notes URINE DIP STICK Reviewed date:11/04/2023 02:26:33 PM Interpretation: Performing Lab: Notes/Report: SG 1.020 1.005 - 1.025 pH 5.0 5.0 - 9.0 ODETTE 70 Negative - NIT Negative Negative - PRO 15 Negative - Trace GLU Negative Negative - KET 5 Negative - UBG 0.2 0.1 - 1.8 MEENAKSHI 1 0.2 - 1.3 BLD Negative Negative - Menstrating No Diabetic Eye Exam Reviewed date:01/17/2024 09:09:42 AM Interpretation:undefined Performing Lab: Notes/Report: undefined Complete Blood Count Auto Di ff Reviewed date:02/29/2024 06:42:41 AM Interpretation: Performing Lab:[facility], [address] [place] [phone] Notes/Report: White Blood Count 7.9 4.8-10.8 X10*3/uL Red Blood Count 4.07 4.20-5.50 X10*6/uL Hemoglobin 13.2 12.0-16.0 g/dl Hematocrit 39.3 37.0-47.0 % Mean Corpuscular Volume 96.6 80.0-98.0 fL Mean Corpuscular Hemoglobin 32.4 27.0-33.0 pg Mean Corpuscular HGB Conc 33.6 31.0-35.0 g/dl Red Cell Distribution Width 13.0 11.0-16.0 % Platelet Count 189 160-400 X10*3/uL Mean Platelet Volume 11.7 9.4-12.3 fL Neutrophils Percent Auto 49.7 45-73 % Imm Gran Pct Auto 0.4 0.0-0.4 % Lymphocytes Percent Auto 36.3 20-40 % Monocytes Percent Auto 10.4 2-11 % Eosinophils Percent Auto 2.9 0-4 % Basophils Percent Auto 0.3 0-2 % NRBC Pct Auto 0.0 0.0-0.2 /100WBC Neutrophils Absolute Auto 3.9 2.0-8.3 x10*3/uL Imm Gran Abs Auto 0.03 0.00-0.03 X10*3/uL Lymphocytes Absolute Auto 2.9 1.2-4.9 X10*3/uL Monocytes Absolute Auto 0.8 0.1-1.2 X10*3/uL Eosinophils Absolute Auto 0.2 0.0-0.4 X10*3/uL Basophils Absolute Auto 0.0 0.0-0.2 X10*3/uL NRBC Abs Auto 0.000 0.0-0.012 X10*3/uL Comprehensive [place]. Panel Fa st Reviewed date:02/29/2024 06:42:41 AM Interpretation: Performing Lab:[facility], [address] [place] [phone] Notes/Report: Sodium 140 135-145 mmol/L Potassium 3.8 3.3-5.1 mmol/L Chloride 108 96-108 mmol/L Carbon Dioxide 23 22-29 mmol/L Anion Gap 13 12-20 Blood Urea Nitrogen 17 9-16 mg/dL Creatinine 0.80 0.5-1.4 mg/dL Estimated Glomerular Filt Rate > 60 NOTE: For -Mexican individuals, multiply the result by 1.210. Chronic Kidney Disease: Estimated GFR < 60 mL/min/1.73m2 Severe Kidney Disease: Estimated GFR < 15 mL/min/1.73m2 Glucose Fasting 86 60-99 mg/dL Calcium 9.2 8.4-10.2 mg/dL Bilirubin Total 0.7 0.0-1.0 mg/dL Aspartate Amino Transferase 46 5-31 U/L Alanine Aminotransferase 55 0-31 U/L Total Protein 6.7 6.5-8.0 g/dL Albumin Level 4.1 3.5-5.0 g/dL Alkaline Phosphatase 77 39-117 U/L Lipid Panel Reviewed date:02/29/2024 06:42:41 AM Interpretation: Performing Lab:[address] [phone] Notes/Report: Triglycerides 217 <150 mg/dL Desirable Triglyceride: less than 150 mg/dL Borderline High Triglyceride 150-199 mg/dL High Triglyceride: 200-499 mg/dL Very High Triglyceride: greater than or equal to 5OO mg/dL Cholesterol 119 <200 mg/dL Desirable Cholesterol: less than 200 mg/dL Borderline High Cholesterol: 200-239 mg/dL High Cholesterol: greater than 239 mg/dL LDL Cholesterol Calculated 38 <100 mg/dL Desirable LDL: less than 100 mg/dL Near Optimal/Above Optimal LDL: 110-129 mg/dL Borderline High LDL: 130-159 mg/dL High LDL: 160-189 mg/dL Very High LDL: greater than or equal to 190 mg/dL HDL Cholesterol 38 >40 mg/dL Desirable HDL: greater than 40 mg/dL Note: This HDL assay may give artificially low results in patients with liver disease. Microalbumin, Random Reviewed date:02/29/2024 06:42:41 AM Interpretation: Performing Lab:[facility], [address] [place] [phone] Notes/Report: Creatinine Urine 139.35 Microalbumin Urine 18.0 Microalbum/Creatinine Ratio Ur 12.9 <30 ug/mg cr Albumin/Creatinine Ratio Reference Ranges: Normal: < 30 ug/mg creatinine Microalbuminuria: 30 - 300 ug/mg creatinine Clinical Albuminuria: > 300 ug/mg creatinine Hemoglobin A1c Reviewed date:02/29/2024 06:42:41 AM Interpretation: Performing Lab:[address] [id number] Notes/Report: Hemoglobin A1c % 8.5 <6.0 % Hemoglobin A1C Reference Range Adults: 4.8 - 6.0 % Non diabetic: < 6.0 % Goal: < 7.0 % Additional Action Suggested: > 8.0 % Note: Hemoglobin A1c results are invalid for patients with abnormal amounts of HbF. Blood transfusions may impact the HbA1c concentration in the patient sample. Estimated Average Glucose 197 eAG = Estimated average glucose which is %A1C expressed as average glucose, using the formula of the M4S-Eeznhoe Average Glucose study (ADAG), Diabetes Care, Vol.31,#8, Mar. 2007 MM tomosynthesis screening B I Reviewed date:05/25/2024 06:03:44 AM Interpretation: Performing Lab: Notes/Report: [facility] [address] [place] [address] Mammography Report Signed Patient: Christiana Nuno MR#: [id number] : 1955 Acct:[id number] Age/Sex: 68 / F ADM Date: 05/05/24 Loc: HO.MAMMO Attending Dr: Harjeet Herman MD Ordering Physician: Harjeet Herman MD Results: 2Benign Findings Date of Service: 05/05/24 Follow Up: 1 Year From [facility] Mammogram Procedure(s): MM tomosynthesis screening BI Accession Number(s): [id number] cc: Harjeet Herman MD EXAMINATION: MM SCREENING DIGITAL BREAST TOMOSYNTHESIS, BILATERAL CLINICAL INFORMATION: Screening. Asymptomatic. COMPARISON: Mammography: Comparison is made with available priors TECHNIQUE: Digital breast mammography with tomosynthesis is performed in both the craniocaudal and mediolateral oblique views along with computer-aided detection (CAD). FINDINGS: The breasts are heterogeneously dense, which may obscure small masses (ACR BI-RADS breast composition Category c). Bilateral scattered focal asymmetries are stable. There are no significant masses, abnormal calcifications, or other abnormalities. MM/MM tomosynthesis screening BI IMPRESSION: No mammographic evidence of malignancy. ASSESSMENT: BI-RADS BI-RADS 2 - Benign Findings RECOMMENDATION: Routine annual mammography screening. 1 year F/U This examination should not preclude the clinical evaluation of a suspicious palpable abnormality. This patient's information was entered into a reminder system with a target due date for their next mammogram. Electronically signed by: Vickie Machuca DO 05/19/2024 10:14 AM EDT Dictated By: Tyminski,Vickie DO Signed By: <Electronically signed by Vickie Machuca DO in OV> 05/19/24 1014 DD/ 1100 TD/TT: 05/05/24 1115 Development Coordinator: [facility] [address] [place] [address] [place] [address] Mammography Report Signed Patient: Christiana Nuno MR#: [id number] : 1955 Acct:[id number] Age/Sex: 68 / F ADM Date: 05/05/24 Loc: HO.MAMMO Attending Dr: Harjeet Herman MD Ordering Physician: Harjeet Herman MD Results: 2Benign Findings Date of Service: 05/05/24 Follow Up: 1 Year From Orig ina Mammogram Procedure(s): MM tomosynthesis screening BI Accession Number(s): [id number] cc: Harjeet Herman MD EXAMINATION: MM SCREENING DIGITAL BREAST TOMOSYNTHESIS, BILATERAL CLINICAL INFORMATION: Screening. Asymptomatic. COMPARISON: Mammography: Compari son is made with available priors TECHNIQUE: Digital breast mammography with tomosynthesis is performed in both the craniocaudal and mediolateral oblique views along with computer-aided detection (CAD). FINDINGS: The breasts are heterogeneously dense, which may obscure small masses (ACR BI-RADS breast composition Category c). Bilateral scattered focal asymmetries are stable. There are no significant masses, abnormal calcifications, or other abnormalities. MM/MM tomosynthesis screening BI IMPRESSION: No mammographic evidence of malignancy. ASSESSMENT: BI-RADS BI-RADS 2 - Benign Findings RECOMMENDATION: Routine annual mammography screening. 1 year F/U This examination tracey uld not preclude the clinical evaluation of a suspicious palpable abnormality. This patient's information was entered into a reminder system with a target due date for their next mammogram. Electronically prashanth d by: Vickie Machuca DO 05/19/2024 10:14 AM EDT Dictated By: Vickie Machuca DO Signed By: <Electronically signed by Vickie Machuca DO in OV> 05/19/24 1014 DD/ 1100 TD/TT: 05/05/24 1115 Development Coordinator: Complete Blood Count Auto Di ff Reviewed date:06/08/2024 07:07:35 AM Interpretation: Performing Lab:[facility], [address] [place] [address] Notes/Report: White Blood Count 6.7 4.8-10.8 X10*3/uL Red Blood Count 3.87 4.20-5.50 X10*6/uL Hemoglobin 12.5 12.0-16.0 g/dl Hematocrit 37.5 37.0-47.0 % Mean Corpuscular Volume 96.9 80.0-98.0 fL Mean Corpuscular Hemoglobin 32.3 27.0-33.0 pg Mean Corpuscular HGB Conc 33.3 31.0-35.0 g/dl Red Cell Distribution Width 13.1 11.0-16.0 % Platelet Count 164 160-400 X10*3/uL Mean Platelet Volume 11.2 9.4-12.3 fL Neutrophils Percent Auto 53.2 45-73 % Imm Gran Pct Auto 0.5 0.0-0.4 % Lymphocytes Percent Auto 29.0 20-40 % Monocytes Percent Auto 11.1 2-11 % Eosinophils Percent Auto 5.7 0-4 % Basophils Percent Auto 0.5 0-2 % NRBC Pct Auto 0.0 0.0-0.2 /100WBC Neutrophils Absolute Auto 3.6 2.0-8.3 x10*3/uL Imm Gran Abs Auto 0.03 0.00-0.03 X10*3/uL Lymphocytes Absolute Auto 1.9 1.2-4.9 X10*3/uL Monocytes Absolute Auto 0.7 0.1-1.2 X10*3/uL Eosinophils Absolute Auto 0.4 0.0-0.4 X10*3/uL Basophils Absolute Auto 0.0 0.0-0.2 X10*3/uL NRBC Abs Auto 0.000 0.0-0.012 X10*3/uL Comprehensive [place]. Panel Fa st Reviewed date:06/08/2024 07:07:36 AM Interpretation: Performing Lab:[facility], [address] [place] [address] Notes/Report: Sodium 142 135-145 mmol/L Potassium 3.9 3.3-5.1 mmol/L Chloride 107 96-108 mmol/L Carbon Dioxide 27 22-29 mmol/L Anion Gap 12 12-20 Blood Urea Nitrogen 11 9-16 mg/dL Creatinine 0.77 0.5-1.4 mg/dL Estimated Glomerular Filt Rate > 60 NOTE: For -Mexican individuals, multiply the result by 1.210. Chronic Kidney Disease: Estimated GFR < 60 mL/min/1.73m2 Severe Kidney Disease: Estimated GFR < 15 mL/min/1.73m2 Glucose Fasting 98 60-99 mg/dL Calcium 9.2 8.4-10.2 mg/dL Bilirubin Total 0.5 0.0-1.0 mg/dL Aspartate Amino Transferase 33 5-31 U/L Alanine Aminotransferase 40 0-31 U/L Total Protein 6.4 6.5-8.0 g/dL Albumin Level 3.9 3.5-5.0 g/dL Alkaline Phosphatase 83 39-117 U/L Lipid Panel Reviewed date:06/08/2024 07:07:36 AM Interpretation: Performing Lab:[address] [address] Notes/Report: Triglycerides 182 <150 mg/dL Desirable Triglyceride: less than 150 mg/dL Borderline High Triglyceride 150-199 mg/dL High Triglyceride: 200-499 mg/dL Very High Triglyceride: greater than or equal to 5OO mg/dL Cholesterol 134 <200 mg/dL Desirable Cholesterol: less than 200 mg/dL Borderline High Cholesterol: 200-239 mg/dL High Cholesterol: greater than 239 mg/dL LDL Cholesterol Calculated 54 <100 mg/dL Desirable LDL: less than 100 mg/dL Near Optimal/Above Optimal LDL: 110-129 mg/dL Borderline High LDL: 130-159 mg/dL High LDL: 160-189 mg/dL Very High LDL: greater than or equal to 190 mg/dL HDL Cholesterol 44 >40 mg/dL Desirable HDL: greater than 40 mg/dL Note: This HDL assay may give artificially low results in patients with liver disease. Microalbumin, Random Reviewed date:06/08/2024 07:07:36 AM Interpretation: Performing Lab:[facility], [address] [place] [phone] Notes/Report: Creatinine Urine 102.31 Microalbumin Urine 27.0 Microalbum/Creatinine Ratio Ur 26.3 <30 ug/mg cr Albumin/Creatinine Ratio Reference Ranges: Normal: < 30 ug/mg creatinine Microalbuminuria: 30 - 300 ug/mg creatinine Clinical Albuminuria: > 300 ug/mg creatinine Hemoglobin A1c Reviewed date:06/08/2024 07:07:36 AM Interpretation: Performing Lab:[facility], [address] [place] [phone] Notes/Report: Hemoglobin A1c % 8.7 <6.0 % Hemoglobin A1C Reference Range Adults: 4.8 - 6.0 % Non diabetic: < 6.0 % Goal: < 7.0 % Additional Action Suggested: > 8.0 % Note: Hemoglobin A1c results are invalid for patients with abnormal amounts of HbF. Blood transfusions may impact the HbA1c concentration in the patient sample. Estimated Average Glucose 203 eAG = Estimated average glucose which is %A1C expressed as average glucose, using the formula of the N2M-Paaammv Average Glucose study (ADAG), Diabetes Care, Vol.31,#8, Mar. 2007 Reason For Referral No Information Medications Medication SIG (Take, Route, Frequency, Duration) Notes Start Date End Date Status Gabapentin 300 MG TAKE 1 CAPSULE BY MOUTH EVERY DAY Active Montelukast Sodium 10 MG TAKE 1 TABLET BY MOUTH EVERY DAY Active metFORMIN HCl 500 MG TAKE 2 TABLETS BY MOUTH TWICE A DAY WITH A MEAL 90 for 90 Active OneTouch Verio - USE TO TEST 3 TIMES A DAY Active BD Pen Needle Arabella U/F 32G X 4 MM Check blood sugar 4 times a day for 30 days E11.9 Type 2 diabetes mellitus 06/11/2024 Active Accu-Chek FastClix Lancets - USE 4 TIMES A DAY 90 for 90 days Active HumaLOG KwikPen 100 UNIT/ML 20 units Subcutaneous three times daily with meals 08/30/2020 Active Lantus SoloStar 100 UNIT/ML INJECT 100 UNITS EVERY EVENING SUBCUTANEOUSLY Active Irbesartan 150 MG TAKE 1 TABLET BY PRADEEP TH EVERY DAY Active Vitamin D (Ergocalciferol) 1.25 MG (74356 UT) TAKE 1 CAPSULE BY MOUTH ONE TIME PER WEEK for 84 Active Simvastatin 20 MG TAKE 1 TABLET IN THE EVENING ONCE A DAY 90 Active Immunizations Vaccine Route Administration Date Status Comme nts Influenza no Preserv 3 and > Unknown 06/08/2019 Administered Zostavax Unknown 08/11/2019 Administered Influenza no Preserv 3 and > Unknown 06/01/2020 Administered COVID- 19 Vaccine Unknown 11/17/2020 Administered 2nd d ose Influenza, quad IM Intramuscular 07/31/2021 Administered PCV13 Unknown 06/21/2021 Administered COVID 19 Moderna Unknown 10/20/2020 Administered COVID 19 Moderna Unknown 06/21/2021 Administered SHINGRIX Unknown 08/11/2019 Administered COVID Moderna Bivalent Unknown 06/11/2022 Administered COMIRNATY Pfizer-BioNTech Unknown 09/23/2023 Administer ed Influenza-iiv4 p-free high dose Unknown 09/23/2023 Administered Social History Tobacco Use: Social History Observation Description Date Details (start date - stop date) Never Smoker NA - NA Sex Assigned At : Social History Observation Description Sex Assigned At Female Tobacco Use/Smoking Question Answer Notes Patient is a nonsmoker Additional Findings: Tobacco Non-User Aggressive non-smoker Alcohol Screen Question Answer Notes Did you have a drink containing alcohol in the p ast year? No Points 0 Interpretation Negative Problems Problem Type SNOMED Code ICD Code Onset Dates Problem Status W/U Status Risk Notes Problem 414128768 Overweight (BMI 25.0-29.9) (E66.3) Active confirmed She weigh s 134 pounds for a body mass index of 29.68. We discussed weight reduction strategies. We discussed her diet and nutrition. We discussed her lipids and A1c. She was educated about the relationship between weight and diet and longevity. Problem 23490898 Type 2 diabetes mellitus without complications (E11.9) Active confirmed Her hemoglobin A1c has increased from 8.5 to 8.7. We discussed her diabetic diet and her weight reduction strategy. We discussed her nutrition. We made plans to lose weight at a rate of one half of a pound per week. Problem 600344029 Mixed hyperlipidemia (E78.2) Active confirmed Her lipids are currently stable despite the rising A1c and weight gain. No change in her medications was made. I strongly recommended aggressive weight loss. Problem 581535009 Essential tremor (G25.0) Active confirmed The tremor was not present today. She has had no difficulty conducting activities of daily life. Problem 14609367 Ureterolithiasis (N20.1) Active confirmed She has had no renal colic or kidney stone since her last visit. Problem 14801901 Essential hypertension (I10) Active confirmed Her blood pressure is stable and controlled at this timeAt 140/70. No change in her regimen was made. I recommended aggressive weight loss and sodium restriction combined with physical activity. Problem Long-term current use of insulin (475942060) FPC current use of insulin (Z79.4) Active confirmed She understands how to use the insulin and to test urine. She has no difficulty with injections. 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 Her face was symmetrical. 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 ; Essential hypertension I10 ; Essential tremor G25.0 ; Ureterolithiasis N20.1 and Mixed hyperlipidemia E78.2 Harjeet Herman III, MD [address] [place] [address] [place] [address] 03/06/2024 Harjeet Herman Type 2 diabetes henry itus without complications E11.9 ; Mixed hyperlipidemia E78.2 and Overweight (BMI 25.0-29.9) E66.3 Harjeet Herman III, MD [address] [place] [address] [place] [phone] 06/11/2024 Harjeet Herman Type 2 diabetes henry itus without complications E11.9 ; Mixed hyperlipidemia E78.2 ; Overweight (BMI 25.0-29.9) E66.3 ; Essential tremor G25.0 and Ureterolithiasis N20.1 Harjeet Herman III, MD [address] [place] [address] [place] [address] 09/22/2024 Harjeet Herman III, MD [address] [place] [address] [place] [address] 09/24/2024 Harjeet Herman Assessments Encounter Date Diagnosis (ICD Code) Assessment Notes Treat ment Notes Treatment Clinical Notes 11/04/2023 Overweight (BMI 25.0-29.9) (ICD-10 - E66.3) Her body mass index is 29. We have discussed the elements of the weight reduction diabetic diet. We made plans to lose weight at a rate of one half of a pound per week. 11/04/2023 Type 2 diabetes mellitus without complications (ICD-10 - E11.9) The hemoglobin A1c has improved from 8.73 down to 8.1 and now to 8.0.. Her fasting glucoses 123. The total cholesterol is 131. She was continued on current therapy. We discussed her weight loss strategy. I recommended aggressive weight loss and physical activity combined with a diabetic diet. 03/06/2024 Type 2 diabetes mellitus without complications (ICD-10 - E11.9) Her hemoglobin A1c has increased to 8.5. We discussed her diabetic diet and her weight reduction strategy. We discussed her nutrition. We made plans to lose weight at a rate of one half of a pound per week. 03/06/2024 Mixed hyperlipidemia (ICD-10 - E78.2) Her triglycerides are elevated over 200 but her total cholesterol is in the normal range. I recommended aggressive weight loss and adherence to a diabetic low cholesterol diet. 06/11/2024 Type 2 diabetes mellitus without complications (ICD-10 - E11.9) Her hemoglobin A1c has increased from 8.5 to 8.7. We discussed her diabetic diet and her weight reduction strategy. We discussed her nutrition. We made plans to lose weight at a rate of one half of a pound per week. 06/11/2024 Mixed hyperlipidemia (ICD-10 - E78.2) Her lipids are currently stable despite the rising A1c and weight gain. No change in her medications was made. I strongly recommended aggressive weight loss. 11/04/2023 FPC current us e of insulin (ICD-10 - Z79.4) She understands how to use the insulin and to test urine. She has no difficulty with injections. 03/06/2024 Overweight (BMI 25.0-29.9) (ICD-10 - E66.3) She has lost 1 pound. Her body mass index is 27. We made a plan to llose weight aggressively a rate of one half of a pound per week. 06/11/2024 Overweight (BMI 25.0-29.9) (ICD-10 - E66.3) She weighs 134 pounds for a body mass index of 29.68. We discussed weight reduction strategies. We discussed her diet and nutrition. We discussed her lipids and A1c. She was educated about the relationship between weight and diet and longevity. 11/04/2023 Essential hypertension (ICD-10 - I10) Her blood pressure is stable and controlled at this timeAt 140/70. No change in her regimen was made. I recommended aggressive weight loss and sodium restriction combined with physical activity. 06/11/2024 Essential tremor (ICD-10 - G25.0) The tremor was not present today. She has had no difficulty conducting activities of daily life. 11/04/2023 Essential tremor (ICD-10 - G25.0) The tremor was not present today. She has had no difficulty conducting activities of daily life. 06/11/2024 Ureterolithiasis (ICD-10 - N20.1) She has had no renal colic or kidney stone since her last visit. 11/04/2023 Ureterolithiasis (ICD-10 - N20.1) She has had no renal colic or kidney stone since her last visit. 11/04/2023 Mixed hyperlipidemia (ICD-10 - E78.2) Her lipids are stable and in Her target range. She is tolerating her medication. No change in her regimen was needed today. 09/22/2024 Other CancelRx Respon se got Denied on 2024-09-24 13:20:05 for 'Basaglar KwikPen 100 UNIT/ML Solution Pen-injector'Chelo loomis Notes: Prescription not found. Contact Pharmacy by other means Plan Of Treatment Pending Test Test Name Order Date PROFILE, FASTING (COMPREHENSIVE METABOLI C) 01/30/2022 PROFILE, FASTING (COMPREHENSIVE METABOLI C) 10/31/2021 PROFILE, FASTING (COMPREHENSIVE METABOLI C) 10/31/2018 PROFILE, FASTING (COMPREHENSIVE METABOLI C) 07/31/2021 PROFILE, FASTING (COMPREHENSIVE METABOLI C) 03/28/2018 PROFILE, FASTING (COMPREHENSIVE METABOLI C) 11/29/2020 PROFILE, FASTING (COMPREHENSIVE METABOLI C) 07/25/2018 PROFILE, FASTING (COMPREHENSIVE METABOLI C) 08/30/2020 PROFILE, FASTING (COMPREHENSIVE METABOLI C) 03/31/2021 PROFILE, FASTING (COMPREHENSIVE METABOLI C) 06/11/2024 PROFILE, FASTING (COMPREHENSIVE METABOLI C) 03/28/2023 PROFILE, FASTING (COMPREHENSIVE METABOLI C) 03/06/2024 PROFILE, FASTING (COMPREHENSIVE METABOLI C) 11/04/2023 PROFILE, FASTING (COMPREHENSIVE METABOLI C) 07/25/2023 PROFILE, FASTING (COMPREHENSIVE METABOLI C) 11/22/2022 PROFILE, FASTING (COMPREHENSIVE METABOLI C) 02/19/2020 PROFILE, FASTING (COMPREHENSIVE METABOLI C) 07/17/2022 PROFILE, FASTING (COMPREHENSIVE METABOLI C) 10/16/2019 PROFILE, FASTING (COMPREHENSIVE METABOLI C) 05/15/2022 PROFILE, FASTING (COMPREHENSIVE METABOLI C) 06/12/2019 PROFILE, RANDOM (COMPREHENSIVE METABOLIC ) 05/10/2020 PROFILE, RANDOM (COMPREHENSIVE METABOLIC ) 02/06/2019 HEMOGLOBIN A1C (GLYCOHEMOGLOBIN) 019 HEMOGLOBIN A1C (GLYCOHEMOGLOBIN) 020 HEMOGLOBIN A1C (GLYCOHEMOGLOBIN) 022 HEMOGLOBIN A1C (GLYCOHEMOGLOBIN) 020 HEMOGLOBIN A1C (GLYCOHEMOGLOBIN) 022 HEMOGLOBIN A1C (GLYCOHEMOGLOBIN) 019 HEMOGLOBIN A1C (GLYCOHEMOGLOBIN) 022 HEMOGLOBIN A1C (GLYCOHEMOGLOBIN) 022 HEMOGLOBIN A1C (GLYCOHEMOGLOBIN) 019 HEMOGLOBIN A1C (GLYCOHEMOGLOBIN) 021 HEMOGLOBIN A1C (GLYCOHEMOGLOBIN) 018 HEMOGLOBIN A1C (GLYCOHEMOGLOBIN) 018 HEMOGLOBIN A1C (GLYCOHEMOGLOBIN) 021 HEMOGLOBIN A1C (GLYCOHEMOGLOBIN) 021 HEMOGLOBIN A1C (GLYCOHEMOGLOBIN) 023 HEMOGLOBIN A1C (GLYCOHEMOGLOBIN) 023 HEMOGLOBIN A1C (GLYCOHEMOGLOBIN) 020 LIPID PANEL 02/06/2019 LIPID PANEL 02/19/2020 LIPID PANEL 07/17/2022 LIPID PANEL 10/16/2019 LIPID PANEL 05/15/2022 LIPID PANEL 06/12/2019 LIPID PANEL 01/30/2022 LIPID PANEL 10/31/2021 LIPID PANEL 10/31/2018 LIPID PANEL 03/28/2018 LIPID PANEL 07/25/2018 LIPID PANEL 08/30/2020 LIPID PANEL 03/28/2023 LIPID PANEL 11/22/2022 LIPID PANEL 05/10/2020 MICROALBUMIN, RANDOM 03/28/2023 MICROALBUMIN, RANDOM 11/22/2022 MICROALBUMIN, RANDOM 02/06/2019 MICROALBUMIN, RANDOM 07/17/2022 MICROALBUMIN, RANDOM 05/15/2022 MICROALBUMIN, RANDOM 10/31/2021 MICROALBUMIN, RANDOM 03/28/2018 MICROALBUMIN, RANDOM 08/30/2020 CBC w DIFF 08/30/2020 CBC w DIFF 05/10/2020 CBC w DIFF 03/28/2023 CBC w DIFF 11/22/2022 CBC w DIFF 02/19/2020 CBC w DIFF 10/16/2019 CBC w DIFF 11/29/2020 CBC w DIFF 07/31/2021 CBC w DIFF 06/12/2019 CBC w DIFF 01/30/2022 CBC w DIFF 02/06/2019 CBC w DIFF 10/31/2018 CBC w DIFF 07/17/2022 CBC w DIFF 05/15/2022 CBC w DIFF 03/31/2021 CBC w DIFF 10/31/2021 CBC w DIFF 07/25/2018 CBC w DIFF 03/28/2018 MAMMOGRAM DIGITAL BILATERAL SCREEN 03/28 MAMMOGRAM DIGITAL BILATERAL SCREEN 11/29 MAMMOGRAM DIGITAL BILATERAL SCREEN 03/28 MAMMOGRAM DIGITAL BILATERAL SCREEN 10/16 MAMMOGRAM DIGITAL BILATERAL SCREEN 01/30 MAMMOGRAM DIGITAL BILATERAL SCREEN 02/06 VITAMIN D 25-OH TOTAL 06/12/2019 CBC WITH AUTO DIFF 06/11/2024 CBC WITH AUTO DIFF 03/06/2024 CBC WITH AUTO DIFF 11/04/2023 CBC WITH AUTO DIFF 07/25/2023 Lipid Panel 11/29/2020 Lipid Panel 07/31/2021 Lipid Panel 06/11/2024 Lipid Panel 03/06/2024 Lipid Panel 11/04/2023 Lipid Panel 03/31/2021 Lipid Panel 07/25/2023 Microalbumin, Random 03/06/2024 Microalbumin, Random 11/04/2023 Microalbumin, Random 07/25/2023 Microalbumin, Random 11/29/2020 Microalbumin, Random 07/31/2021 Microalbumin, Random 06/11/2024 Hemoglobin A1c 11/29/2020 Hemoglobin A1c 06/11/2024 Hemoglobin A1c 03/06/2024 Hemoglobin A1c 11/04/2023 Hemoglobin A1c 07/25/2023 Next Appt Details Provider Name:Harjeet Herman, 11/09/2024 09:30:00 AM, [address] [place] [address] [address], [place], [address], Insurance Providers Payer Name Payer Address Payer Phone Subscriber Number Group Number Insured Name Patient Relationship to Insured Coverage Start Date Coverage End Date [facility] [address] [place], [place] [id number] CHRISTIANA NUNO Self - patient is the insured MEDICARE NGS [address] [place] [address] [id number] CHRISTIANA NUNO Self - patient is the insured Medical (General) History Medical History History ICD Code Asthma, unspecified asthma s everity, unspecified whether complicated, unspecified whether persistent J45.909 FPC current use of insulin Z79.4 Type 2 diabetes mellitus without complic ations E11.9 Hypertension, unspecified type I10 Hyperlipidemia, unspecified hyperlipidem ia type E78.5 Bursitis of left shoulder M75.52 essential tremor calcium oxalate kidney stone 2004 hyperplastic polyps of the rectum 2013 Cooper's palsy obesity, BMI 30 Surgical History Surgery Date(Month/Year) section x2 lithotripsy age 50, Dr. Reveles 2004 cystoscopy, stent insertion left ureter, retro-grade pyelogram 2005 colonoscopy, Dr. Landaverde, [facility], negative 2010 history of one tubal No history Hospitalization History Reason Date(Month/Year) No history
--- OUTSIDE RECORDS SUMMARY | 2024-11-03 06:14 | XMS_ITS ---
Author Organization Harjeet Herman III, MD Address [address] [place] [address] Care Team Providers Care Log Inspector Name Role Phone Harjeet Herman Primary Care Provider Allergies Allergen (clinical drug ingredient) Drug/Non Drug Allergy documented on EMR Reaction Allergy Type Onset Date Status No Known Drug Allergy Unknown Drug Allergy Active REASON FOR VISIT Diabetes, Hypertension, Tremor, Hyperlipidemia, Overweight, Ureterolithiasis Medications Medication SIG (Take, Route, Frequency, Duration) Notes Start Date End Date Status OneTouch Verio - USE TO TEST 3 TIMES A DAY Active Vitamin D (Ergocalciferol) 1.25 MG (16757 UT) TAKE 1 CAPSULE BY MOUTH ONE TIME PER WEEK Active BD Pen Needle Arabella U/F 32G X 4 MM Check blood sugar 5 times a day for 30 days E11.9 Type 2 diabetes mellitus Active HumaLOG KwikPen 100 UNIT/ML 20 units Subcutaneous three times daily with meals 08/30/2020 Active metFORMIN HCl 500 MG TAKE 2 TABLETS BY MOUTH TWICE A DAY WITH A MEAL 90 Active Gabapentin 300 MG TAKE 1 CAPSULE BY MOUTH EVERY DAY Active Montelukast Sodium 10 MG TAKE 1 TABLET BY MOUTH EVERY DAY Active Accu-Chek FastClix Lancets - USE DIRECTED 4 TIMES A DAY 90 Active Irbesartan 150 MG TAKE 1 TABLET BY PRADEEP TH EVERY DAY Active Simvastatin 20 MG TAKE 1 TABLET IN THE EVENING ONCE A DAY 90 Active BD Pen Needle Arabella U/F 32G X 4 MM Check blood sugar 4 times a day for 30 days E11.9 Type 2 diabetes mellitus 06/11/2024 Active Lantus SoloStar 100 UNIT/ML INJECT 100 UNITS EVERY EVENING SUBCUTANEOUSLY FOR 90 DAYS Active Social History Tobacco Use: Social History Observation Description Date Details (start date - stop date) Never Smoker NA - NA Sex Assigned At : Social History Observation Description Sex Assigned At Female Tobacco Use/Smoking Question Answer Notes Patient is a nonsmoker Additional Findings: Tobacco Non-User Aggressive non-smoker Vital Signs Temperature 97.5 degrees Fahrenheit 06/11/20 24 Blood pressure systolic 138 mm Hg 06/11/20 24 Blood pressure diastolic 58 mm Hg 024 Heart Rate 72 /min 06/11/2024 Height 60 in 06/11/2024 Weight 152 lbs 06/11/2024 BMI 29.68 kg/m2 06/11/2024 Encounters Encounter Location Date Provider Diagnosis Harjeet Herman III, MD [address] [place] [address] [place] [address] 06/11/2024 Harjeet Herman Type 2 diabetes henry itus without complications E11.9 ; Mixed hyperlipidemia E78.2 ; Overweight (BMI 25.0-29.9) E66.3 ; Essential tremor G25.0 and Ureterolithiasis N20.1 Assessments Encounter Date Diagnosis (ICD Code) Assessment Notes Treat ment Notes Treatment Clinical Notes 06/11/2024 Type 2 diabetes mellitus without complications [...] made. I strongly recommended aggressive weight loss. 06/11/2024 Overweight (BMI 25.0-29.9) (ICD-10 - E66.3) She weighs 134 pounds for a body mass index of 29.68. We discussed weight reduction strategies. We discussed her diet and nutrition. We discussed her lipids and A1c. She was educated about the relationship between weight and diet and longevity. 06/11/2024 Essential tremor (ICD-10 - G25.0) The tremor was not present today. She has had no difficulty conducting activities of daily life. 06/11/2024 Ureterolithiasis (ICD-10 - N20.1) She has had no renal colic or kidney stone since her last visit. Plan Of Treatment Medication Medication Name Sig Start Date Stop Date Notes OneTouch Verio - USE TO TEST 3 TIMES A DAY Vitamin D (Ergocalciferol) 1.25 MG (04187 UT) TAKE 1 CAPSULE BY MOUTH ONE TIME PER WEEK BD Pen Needle Arabella U/F 32G X 4 MM Check blood sugar 5 times a day for 30 days E11.9 Type 2 diabetes mellitus HumaLOG KwikPen 100 UNIT/ML 20 units Subcutaneous three times daily with meals 08/30/2020 metFORMIN HCl 500 MG TAKE 2 TABLETS BY M OUTH TWICE A DAY WITH A MEAL 90 Gabapentin 300 MG TAKE 1 CAPSULE BY MO UTH EVERY DAY Montelukast Sodium 10 MG TAKE 1 TABLET BY MOUTH EVERY DAY Accu-Chek FastClix Lancets - USE DIRECTED 4 TIMES A DAY 90 Irbesartan 150 MG TAKE 1 TABLET BY PRADEEP TH EVERY DAY Simvastatin 20 MG TAKE 1 TABLET IN THE EVENING ONCE A DAY 90 BD Pen Needle Arabella U/F 32G X 4 MM Check blood sugar 4 times a day for 30 days 06/11/2024 E11.9 Type 2 diabetes mellitus Lantus SoloStar 100 UNIT/ML INJECT 100 UNITS EVERY EVENING SUBCUTANEOUSLY FOR 90 DAYS Pending Test Test Name Order Date PROFILE, FASTING (COMPREHENSIVE METABOLI C) 06/11/2024 CBC WITH AUTO DIFF 06/11/2024 Lipid Panel 06/11/2024 Microalbumin, Random 06/11/2024 Hemoglobin A1c 06/11/2024 Next Appt Details Follow Up: As Scheduled, Janie son: OV Provider Name:Harjeet Herman, 11/09/2024 09:30:00 AM, [address] [place] [address] , [address], [address], Progress Notes * DOUGLAS NUNODOB: [birth year] (68 yo F)Acc No.[id number]:06/11/2024 Progress Notes Patient:?DOUGLAS NUNO Provider:?Harjeet Herman MD :1955???Age:68 Y???Sex:Female D ate:06/11/2024 Address:[address] [place], [place] [id number] Subjective: * Chief Complaints: * ???DiabetesHypertensionTremo rHyperlipidemiaOverweightUreterolithiasis * HPI: ???COVID-19 Screening:?Questions?Have you experienced fever, chills, cough, sore throat, shortness of breath, difficulty breathing, muscle aches, loss of taste or smell??No ?Have you been exposed to the virus within the last 10 days??No ?Have you travelled internationally in the last 10 days??No ?Have you been exposed to COVID-19 in the past??Yes ???:? The patient, a 68-year-old female, reported experiencing nocturnal rest cramps in her legs, particularly on one side. These cramps are intermittent and occur during the night, causing her to wake up. The severity of the cramps is significant enough to disrupt her sleep, but they are not associated with any other symptoms. The patient also reported that her blood sugar levels tend to rise during the day, despite being normal in the mornings. She has been monitoring her blood sugar levels at home. The patient did not report any other symptoms or concerns. * ROS:?General/Constitutional:?pain?only normal aches and pains.?Chills?denies.?Fatigue?admits.?Fever?denies.?ENT:?Decreased hearing?mild.?Respiratory:?Cough?denies.?Cardiovascular:?Chest pain with exertion?denies.?Dyspnea on exertion?denies.?Shortness of breath?denies.?Gastrointestinal:?Constipation?occasional.?Decreased appetite?denies.?Diarrhea?denies.?Heartburn?denies.?Nausea?denies.?Rectal bleeding?denies.?Vomiting?denies.?Hematology:?bruising?denies.?petechiae?denies.?Swollen glands?none have been noted.?Genitourinary:?Frequent urination?at night.?Musculoskeletal:?Muscle aches?denies.?Painful joints?denies.?Sciatica?denies.?Weakness?denies.?Skin:?Itching?denies.?Rash?denies.?Skin lesion(s)?denies.?Neurologic:?Difficulty speaking?denies.?Dizziness?denies.?Headache?denies.?Low back pain?denies.?Psychiatric:?Depressed mood?denies.? * Medical History:? * Surgical History:? s ection x2 lithotripsy age 50, Dr. Reveles 2005cystoscopy, stent insertion left ureter, retro-grade pyelogram 2005colonoscopy, Dr. Landaverde, [facility], negative 2011history of one tubal No history * Hospitalization/Major Diagno stic Procedure:?No history * Family History:?Father: dece ased 25 yrs, auto accident.?Mother: alive 79 yrs, hypertension, breast cancer at age 56, diagnosed with HTN, Cancer.?Paternal Grand Mother: diagnosed with HTN, CVD.?3 brother(s) - healthy. 1 son(s) , 1 daughter(s) - healthy. .? A maternal grandmother had hypertension and heart disease. Her children are healthy and well. There is no history of hereditary malignancy. She is not aware of any family history of mental illness or substance use disorder or injection. * Social History:?Tobacco Use:?Tobacco Use/Smoking?Patient is a?nonsmoker ?Additional Findings: Tobacco Non-User?Aggressive non-smoker ???She and her ,Angelo, were both born in [place]. She works in a [employer]. She has a son Sai and a daughter Jaja and 3 grandchildren. * Medications:?TakingSimvastat in 20 MG Tablet TAKE 1 TABLET IN THE EVENING ONCE A DAY 90 Gabapentin 300 MG Capsule TAKE 1 CAPSULE BY MOUTH EVERY DAY Montelukast Sodium 10 MG Tablet TAKE 1 TABLET BY MOUTH EVERY DAY Accu-Chek FastClix Lancets - Miscellaneous USE DIRECTED 4 TIMES A DAY 90 OneTouch Verio - Strip USE TO TEST 3 TIMES A DAY Vitamin D (Ergocalciferol) 1.25 MG (24495 UT) Capsule TAKE 1 CAPSULE BY MOUTH ONE TIME PER WEEK BD Pen Needle Arabella U/F 32G X 4 MM Miscellaneous USE DIRECTED 5 TIMES DAILY HumaLOG KwikPen 100 UNIT/ML Solution Pen-injector 20 units Subcutaneous three times daily with meals metFORMIN HCl 500 MG Tablet TAKE 2 TABLETS BY MOUTH TWICE A DAY WITH A MEAL 90 Irbesartan 150 MG Tablet TAKE 1 TABLET BY MOUTH EVERY DAY Lantus SoloStar 100 UNIT/ML Solution Pen-injector INJECT 100 UNITS EVERY EVENING SUBCUTANEOUSLY FOR 90 DAYS Medication List reviewed and reconciled with the patientTaking Simvastatin 20 MG Tablet TAKE 1 TABLET IN THE EVENING ONCE A DAY 90 Taking Gabapentin 300 MG Capsule TAKE 1 CAPSULE BY MOUTH EVERY DAY Taking Montelukast Sodium 10 MG Tablet TAKE 1 TABLET BY MOUTH EVERY DAY Taking Accu-Chek FastClix Lancets - Miscellaneous USE DIRECTED 4 TIMES A DAY 90 Taking OneTouch Verio - Strip USE TO TEST 3 TIMES A DAY Taking Vitamin D (Ergocalciferol) 1.25 MG (49691 UT) Capsule TAKE 1 CAPSULE BY MOUTH ONE TIME PER WEEK Taking BD Pen Needle Arabella U/F 32G X 4 MM Miscellaneous USE DIRECTED 5 TIMES DAILY Taking HumaLOG KwikPen 100 UNIT/ML Solution Pen-injector 20 units Subcutaneous three times daily with meals Taking metFORMIN HCl 500 MG Tablet TAKE 2 TABLETS BY MOUTH TWICE A DAY WITH A MEAL 90 Taking Irbesartan 150 MG Tablet TAKE 1 TABLET BY MOUTH EVERY DAY Taking Lantus SoloStar 100 UNIT/ML Solution Pen-injector INJECT 100 UNITS EVERY EVENING SUBCUTANEOUSLY FOR 90 DAYS Medication List reviewed and reconciled with the patient * Allergies:?No Known Drug All ergyno[Allergies Verified] Objective: * Vitals:?Ht: 60, Wt:152, BMI: 29.68, BP:138/58, HR:72, Temp:97.5, Wt-k.95. * ???Past Orders: Lab:Complete Blood Count Aut o Diff * Collection Date 06/05/2024 02/28/2024 11/02/2023 Collection Time 08:13 AM 06:34 AM 07:05 AM Order Date 06/05/2024 02/28/2024 11/02/2023 White Blood Count 6.7 (Ref Range: 4.8-10.8 X10*3/uL) 7.9 (Ref Range: 4.8-10.8 X10*3/uL) 6.8 (Ref Range: 4.8-10.8 X10*3/uL) Red Blood Count 3.87?L (Ref Range: 4.20-5.50 X10*6/uL) 4.07?L (Ref Range: 4.20-5.50 X10*6/uL) 4.11?L (Ref Range: 4.20-5.50 X10*6/uL) Hemoglobin 12.5 (Ref Range: 12.0-16.0 g/dl) 13.2 (Ref Range: 12.0-16.0 g/dl) 13.2 (Ref Range: 12.0-16.0 g/dl) Hematocrit 37.5 (Ref Range: 37.0-47.0 %) 39.3 (Ref Range: 37.0-47.0 %) 40.5 (Ref Range: 37.0-47.0 %) Mean Corpuscular Volume 96.9 (Ref Range: 80.0-98.0 fL) 96.6 (Ref Range: 80.0-98.0 fL) 98.5?H (Ref Range: 80.0-98.0 fL) Mean Corpuscular Hemoglobin 32.3 (Ref Range: 27.0-33.0 pg) 32.4 (Ref Range: 27.0-33.0 pg) 32.1 (Ref Range: 27.0-33.0 pg) Mean Corpuscular HGB Conc 33.3 (Ref Range: 31.0-35.0 g/dl) 33.6 (Ref Range: 31.0-35.0 g/dl) 32.6 (Ref Range: 31.0-35.0 g/dl) Red Cell Distribution Width 13.1 (Ref Range: 11.0-16.0 %) 13.0 (Ref Range: 11.0-16.0 %) 13.0 (Ref Range: 11.0-16.0 %) Platelet Count 164 (Ref Range: 160-400 X10*3/uL) 189 (Ref Range: 160-400 X10*3/uL) 194 (Ref Range: 160-400 X10*3/uL) Mean Platelet Volume 11.2 (Ref Range: 9.4-12.3 fL) 11.7 (Ref Range: 9.4-12.3 fL) 12.0 (Ref Range: 9.4-12.3 fL) Neutrophils Percent Auto 53.2 (Ref Range: 45-73 %) 49.7 (Ref Range: 45-73 %) 44.9?L (Ref Range: 45-73 %) Imm Gran Pct Auto 0.5?H (Ref Range: 0.0-0.4 %) 0.4 (Ref Range: 0.0-0.4 %) 0.3 (Ref Range: 0.0-0.4 %) Lymphocytes Percent Auto 29.0 (Ref Range: 20-40 %) 36.3 (Ref Range: 20-40 %) 35.4 (Ref Range: 20-40 %) Monocytes Percent Auto 11.1?H (Ref Range: 2-11 %) 10.4 (Ref Range: 2-11 %) 11.7?H (Ref Range: 2-11 %) Eosinophils Percent Auto 5.7?H (Ref Range: 0-4 %) 2.9 (Ref Range: 0-4 %) 7.4?H (Ref Range: 0-4 %) Basophils Percent Auto 0.5 (Ref Range: 0-2 %) 0.3 (Ref Range: 0-2 %) 0.3 (Ref Range: 0-2 %) NRBC Pct Auto 0.0 (Ref Range: 0.0-0.2 /100WBC) 0.0 (Ref Range: 0.0-0.2 /100WBC) 0.0 (Ref Range: 0.0-0.2 /100WBC) Neutrophils Absolute Auto 3.6 (Ref Range: 2.0-8.3 x10*3/uL) 3.9 (Ref Range: 2.0-8.3 x10*3/uL) 3.1 (Ref Range: 2.0-8.3 x10*3/uL) Imm Gran Abs Auto 0.03 (Ref Range: 0.00-0.03 X10*3/uL) 0.03 (Ref Range: 0.00-0.03 X10*3/uL) 0.02 (Ref Range: 0.00-0.03 X10*3/uL) Lymphocytes Absolute Auto 1.9 (Ref Range: 1.2-4.9 X10*3/uL) 2.9 (Ref Range: 1.2-4.9 X10*3/uL) 2.4 (Ref Range: 1.2-4.9 X10*3/uL) Monocytes Absolute Auto 0.7 (Ref Range: 0.1-1.2 X10*3/uL) 0.8 (Ref Range: 0.1-1.2 X10*3/uL) 0.8 (Ref Range: 0.1-1.2 X10*3/uL) Eosinophils Absolute Auto 0.4 (Ref Range: 0.0-0.4 X10*3/uL) 0.2 (Ref Range: 0.0-0.4 X10*3/uL) 0.5?H (Ref Range: 0.0-0.4 X10*3/uL) Basophils Absolute Auto 0.0 (Ref Range: 0.0-0.2 X10*3/uL) 0.0 (Ref Range: 0.0-0.2 X10*3/uL) 0.0 (Ref Range: 0.0-0.2 X10*3/uL) NRBC Abs Auto 0.000 (Ref Range: 0.0-0.012 X10*3/uL) 0.000 (Ref Range: 0.0-0.012 X10*3/uL) 0.000 (Ref Range: 0.0-0.012 X10*3/uL) * Lab:[facility] * Collection Date 06/05/2024 02/28/2024 11/02/2023 Collection Time 08:13 AM 06:34 AM 07:05 AM Order Date 06/05/2024 02/28/2024 11/02/2023 Sodium 142 (Ref Range: 135-145 mmol/L) 140 (Ref Range: 135-145 mmol/L) 141 (Ref Range: 135-145 mmol/L) Bilirubin Total 0.5 (Ref Range: 0.0-1.0 mg/dL) 0.7 (Ref Range: 0.0-1.0 mg/dL) 0.4 (Ref Range: 0.0-1.0 mg/dL) Aspartate Amino Transferase 33?H (Ref Range: 5-31 U/L) 46?H (Ref Range: 5-31 U/L) 43?H (Ref Range: 5-31 U/L) Alanine Aminotransferase 40?H (Ref Range: 0-31 U/L) 55?H (Ref Range: 0-31 U/L) 51?H (Ref Range: 0-31 U/L) Total Protein 6.4?L (Ref Range: 6.5-8.0 g/dL) 6.7 (Ref Range: 6.5-8.0 g/dL) 6.6 (Ref Range: 6.5-8.0 g/dL) Albumin Level 3.9 (Ref Range: 3.5-5.0 g/dL) 4.1 (Ref Range: 3.5-5.0 g/dL) 4.0 (Ref Range: 3.5-5.0 g/dL) Alkaline Phosphatase 83 (Ref Range: 39-117 U/L) 77 (Ref Range: 39-117 U/L) 79 (Ref Range: 39-117 U/L) Potassium 3.9 (Ref Range: 3.3-5.1 mmol/L) 3.8 (Ref Range: 3.3-5.1 mmol/L) 4.3 (Ref Range: 3.3-5.1 mmol/L) Chloride 107 (Ref Range: 96-108 mmol/L) 108 (Ref Range: 96-108 mmol/L) 108 (Ref Range: 96-108 mmol/L) Carbon Dioxide 27 (Ref Range: 22-29 mmol/L) 23 (Ref Range: 22-29 mmol/L) 26 (Ref Range: 22-29 mmol/L) Anion Gap 12 (Ref Range: 12-20) 13 (Ref Range: 12-20) 11?L (Ref Range: 12-20) Blood Urea Nitrogen 11 (Ref Range: 9-16 mg/dL) 17?H (Ref Range: 9-16 mg/dL) 14 (Ref Range: 9-16 mg/dL) Creatinine 0.77 (Ref Range: 0.5-1.4 mg/dL) 0.80 (Ref Range: 0.5-1.4 mg/dL) 0.78 (Ref Range: 0.5-1.4 mg/dL) Estimated Glomerular Filt Rate > 60 > 60 > 60 Glucose Fasting 98 (Ref Range: 60-99 mg/dL) 86 (Ref Range: 60-99 mg/dL) 123?H (Ref Range: 60-99 mg/dL) Calcium 9.2 (Ref Range: 8.4-10.2 mg/dL) 9.2 (Ref Range: 8.4-10.2 mg/dL) 9.4 (Ref Range: 8.4-10.2 mg/dL) * Lab:Lipid Panel * Collection Date 06/05/2024 02/28/2024 11/02/2023 Collection Time 08:13 AM 06:34 AM 07:05 AM Order Date 06/05/2024 02/28/2024 11/02/2023 Triglycerides 182?H (Ref Range: <150 mg/dL) 217?H (Ref Range: <150 mg/dL) 134 (Ref Range: <150 mg/dL) Cholesterol 134 (Ref Range: <200 mg/dL) 119 (Ref Range: <200 mg/dL) 131 (Ref Range: <200 mg/dL) LDL Cholesterol Calculated 54 (Ref Range: <100 mg/dL) 38 (Ref Range: <100 mg/dL) 60 (Ref Range: <100 mg/dL) HDL Cholesterol 44 (Ref Range: >40 mg/dL) 38?L (Ref Range: >40 mg/dL) 45 (Ref Range: >40 mg/dL) * Lab:Microalbumin, Random * Collection Date 06/05/2024 02/28/2024 11/02/2023 Collection Time 08:13 AM 06:34 AM 07:05 AM Order Date 06/05/2024 02/28/2024 11/02/2023 Creatinine Urine 102.31 (Ref Range: mg/dL) 139.35 (Ref Range: mg/dL) 52.93 (Ref Range: mg/dL) Microalbumin Urine 27.0 (Ref Range: mg/L) 18.0 (Ref Range: mg/L) 15.0 (Ref Range: mg/L) Microalbum Creatinine Ratio Ur 26.3 (Ref Range: <30 ug/mg cr) 12.9 (Ref Range: <30 ug/mg cr) 28.3 (Ref Range: <30 ug/mg cr) * Lab:Hemoglobin A1c * Collection Date 06/05/2024 02/28/2024 11/02/2023 Collection Time 08:13 AM 06:34 AM 07:05 AM Order Date 06/05/2024 02/28/2024 11/02/2023 Hemoglobin A1c % 8.7?H (Ref Range: <6.0 %) 8.5?H (Ref Range: <6.0 %) 8.0?H (Ref Range: <6.0 %) Estimated Average Glucose 203 (Ref Range: mg/dL) 197 (Ref Range: mg/dL) 183 (Ref Range: mg/dL) * Imaging:MM tomosynthesis scr eening BI * Performed Date 05/05/2024 05/03/2023 04/27/2022 11:00 AM 11:15 AM 11:02 AM Order Date 05/05/2024 05/03/2023 04/27/2022 * Examination: ???General Examination: ?GENERAL APPEARANCE:?pleasant, well nourished, well developed, in no acute distress, calm and relaxed, overweight, woman.?HEAD:?atraumatic, normocephalic.?EYES:?eomi, perrla, anicteric, conjugate.?EARS:?normal.?NOSE:?septum intact.?ORAL CAVITY:?normal, unremarkable.?NECK/THYROID:?no jugular venous distention, no carotid bruit, thyroid normal.?LYMPH NODES:?no enlarged lymph nodes,spleen normal.?SKIN:?no suspicious lesions, anicteric.?HEART:?no clicks, gallops, murmurs, or rubs, regular rhythm, S1, S2 normal, no s3, or vascular bruits.?LUNGS:?clear to auscultation .?BREASTS:?Not examined.?ABDOMEN:?bowel sounds normal, no ascites, no organomegaly, no mass, overweight.?RECTAL EXAM:?Declined.?MUSCULOSKELETAL:?extremities unremarkable, no clubbing, cyanosis or edema.?PERIPHERAL PULSES:?normal.?NEUROLOGIC:?alert and oriented, cranial nerves 2-12 grossly intact, deep tendon reflexes 2+ symmetrical, motor strength normal upper and lower extremities, sensory exam intact.?PSYCH:?alert, oriented, cooperative with exam, cognitive function intact, alert, oriented, speech clear.? Assessment: * Assessment: 1.?Type 2 diabetes mellitus without complications - E11.9 (Primary)???Notes :Her hemoglobin A1c has increased from 8.5 to 8.7. We discussed her diabetic diet and her weight reduction strategy. We discussed her nutrition. We made plans to lose weight at a rate of one half of a pound per week.???2.?Mixed hyperlipidemia - E78.2???Notes :Her lipids are currently stable despite the rising A1c and weight gain.? No change in her medications was made.? I strongly recommended aggressive weight loss.???3.?Overweight (BMI 25.0-29.9) - E66.3???Notes :She weighs 134 pounds for a body mass index of 29.68.? We discussed weight reduction strategies.? We discussed her diet and nutrition.? We discussed her lipids and A1c.? She was educated about the relationship between weight and diet? and longevity.???4.?Essential tremor - G25.0???Notes :The tremor was not present today. She has had no difficulty conducting activities of daily life.???5.?Ureterolithiasis - N20.1???Notes :She has had no renal colic or kidney stone since her last visit.??? Plan: * Treatment: 2.?Mixed hyperlipidemia?LAB: PROFILE, FASTING (COMPREHENSIVE METABOLIC) ?LAB: CBC WITH AUTO DIFF ?LAB: Lipid Panel ?LAB: Microalbumin, Random ?LAB: Hemoglobin A1c 3.?Overweight (BMI 25.0-29.9 )?LAB: PROFILE, FASTING (COMPREHENSIVE METABOLIC) ?LAB: CBC WITH AUTO DIFF ?LAB: Lipid Panel ?LAB: Microalbumin, Random ?LAB: Hemoglobin A1c 4.?Others? Continue Lantus SoloStar Solution Pen-injector, 100 UNIT/ML, INJECT 100 UNITS EVERY EVENING SUBCUTANEOUSLY FOR 90 DAYS;?Continue Irbesartan Tablet, 150 MG, TAKE 1 TABLET BY MOUTH EVERY DAY;?Continue Simvastatin Tablet, 20 MG, TAKE 1 TABLET IN THE EVENING ONCE A DAY 90;?Continue Gabapentin Capsule, 300 MG, TAKE 1 CAPSULE BY MOUTH EVERY DAY;?Continue Montelukast Sodium Tablet, 10 MG, TAKE 1 TABLET BY MOUTH EVERY DAY;?Continue Accu-Chek FastClix Lancets Miscellaneous, -, USE DIRECTED 4 TIMES A DAY 90;?Continue OneTouch Verio Strip, -, USE TO TEST 3 TIMES A DAY; Continue Vitamin D (Ergocalciferol) Capsule, 1.25 MG (08955 UT), TAKE 1 CAPSULE BY MOUTH ONE TIME PER WEEK;?Continue metFORMIN HCl Tablet, 500 MG, TAKE 2 TABLETS BY MOUTH TWICE A DAY WITH A MEAL 90.?? * Procedure Codes:? * Follow Up:?As Scheduled (Janie son: OV) * Images: * Sign off status: Completed true * Provider:?Harjeet Herman MD Date:?05/26 Generated for Evgeny jones/Bernabe/Calvin on:?11/03/2024 06:13 AM EDT History and Physical Notes * HPI (History of Present Illness) Category Sub-Category Detail Notes COVID-19 Screening Questions Have you had any new onset fever, chills, cough, congestion, sore throat, shortness of breath, muscle aches?: No Have you been exposed to the virus withi n the last 10 days?: No Have you travelled internationally in [facility] last 10 days?: No Have you been exposed to COVID-19 in the past?: Yes Examination Category Sub-Category Detail Notes General Examination GENERAL APPEARANCE: pleasant , well nourished, well developed, in no acute distress, calm and relaxed, overweight, woman HEAD: atraumatic, normocep halic EYES: eomi, perrla, anicte toñito, conjugate EARS: normal NOSE: septum intact NECK/THYROID: no jugular venous di stention, no carotid bruit, thyroid normal HEART: no clicks, gallops, murmurs, or rubs, regular rhythm, S1, S2 normal, no s3, or vascular bruits LUNGS: clear to auscultatio n ABDOMEN: bowel sounds normal, no ascites, no organomegaly, no mass, overweight NEUROLOGIC: alert and oriented, cranial nerves 2-12 grossly intact, deep tendon reflexes 2+ symmetrical, motor strength normal upper and lower extremities, sensory exam intact SKIN: no suspicious lesion s, anicteric PERIPHERAL PULSES: normal BREASTS: Not examined MUSCULOSKELETAL: extremities unremark able, no clubbing, cyanosis or edema LYMPH NODES: no enlarged lymph no eric,spleen normal RECTAL EXAM: Declined PSYCH: alert, oriented, pulp cooker perative with exam, cognitive function intact, alert, oriented, speech clear ORAL CAVITY: normal, unremarkable
[2024-11-03 10:25] LABS: MANUAL DIFF FLAG NO
[2024-11-03 10:29] LABS: Basophils Percent Auto 0.4 % (0-2); Eosinophils Absolute Auto 0.6 X10*3/uL (0.0-0.4); Eosinophils Percent Auto 8.1 % (0-4); Hematocrit 39.4 % (37.0-47.0); Hemoglobin 13.3 g/dl (12.0-16.0); Imm Gran Abs Auto 0.03 X10*3/uL (0.00-0.03); Imm Gran Pct Auto 0.4 % (0.0-0.4); Lymphocytes Absolute Auto 2.6 X10*3/uL (1.2-4.9); Lymphocytes Percent Auto 33.1 % (20-40); Mean Corpuscular HGB Conc 33.8 g/dl (31.0-35.0); Mean Corpuscular Hemoglobin 32.4 pg (27.0-33.0); Mean Corpuscular Volume 96.1 fL (80.0-98.0); Mean Platelet Volume 11.4 fL (9.4-12.3); Monocytes Absolute Auto 0.9 X10*3/uL (0.1-1.2); Monocytes Percent Auto 11.1 % (2-11); Neutrophils Absolute Auto 3.7 x10*3/uL (2.0-8.3); Neutrophils Percent Auto 46.9 % (45-73); Platelet Count 201 X10*3/uL (160-400); Red Cell Distribution Width 12.8 % (11.0-16.0); White Blood Count 7.8 X10*3/uL (4.8-10.8)
[2024-11-03 10:43] LABS: Creatinine Urine 74.69 mg/dL; Microalbum/Creatinine Ratio Ur 9.3 ug/mg cr (<30)
[2024-11-03 10:45] LABS: Estimated Average Glucose 192 mg/dL; Hemoglobin A1c % 8.3 % (<6.0); Total Hemoglobin (HGBA1C) 3485.7503 umol/L
[2024-11-03 10:50] LABS: Alanine Aminotransferase 45 U/L (0-31); Albumin Level 4.1 g/dL (3.5-5.0); Alkaline Phosphatase 78 U/L (39-117); Anion Gap 12 (12-20); Aspartate Amino Transferase 41 U/L (5-31); Bilirubin Total 0.8 mg/dL (0.0-1.0); Blood Urea Nitrogen 17 mg/dL (9-16); Carbon Dioxide 25 mmol/L (22-29); Chloride 108 mmol/L (96-108); Cholesterol 117 mg/dL (<200); Estimated Glomerular Filt Rate > 60; Glucose Fasting 118 mg/dL (60-99); HDL Cholesterol 41 mg/dL (>40); LDL Cholesterol Calculated 51 mg/dL (<100); Potassium 4.2 mmol/L (3.3-5.1); Sodium 141 mmol/L (135-145); Total Protein 7.2 g/dL (6.5-8.0); Triglycerides 126 mg/dL (<150)
== END 2024-11-03 06:12 | disposition home or self-care (01) ==
LOC: HO.HMGCLDS 06:11
PROVIDERS: PCP Internal Medicine Medical Oncology; Visit Provider Internal Medicine Medical Oncology
DX: E11.9 Type 2 diabetes mellitus without complications (principal); E78.2 Mixed hyperlipidemia; E66.3 Overweight
CPT/HCPCS: 36415; 80053; 80061; 82043; 82570; 83036; 85025

== ENCOUNTER 2025-03-01 06:16 | Outpatient (REF) | payer MEDICARE, SELFPAY ==
--- OUTSIDE RECORDS SUMMARY | 2025-03-01 06:19 | XMS_ITS | Patient Health Record ---
Author Organization [facility] Address [address] [place] [address] Care Team Providers Care Success Coach Name Role Phone Kurt Ojeda Primary Care Provider Harjeet Horowitz Unavailable [phone] Reason For Referral No Information Medications Medication SIG (Take, Route, Frequency, Duration) Notes Start Date End Date Status Metformin & Diet Manage Prod Active MoviPrep 100 GM as directed Orally 05/02/2011 Active Januvia Active glyBURIDE Active Diovan Active Simvastatin Active Singulair Active Problems Problem Type SNOMED Code ICD Code Onset Dates Problem Status W/U Status Risk Notes Problem Special screening for malignant neoplasms, colon (V76.51) Active confirmed Plan Of Treatment Future Test Test Name Order Date COLONOSCOPY 05/02/2011 Insurance Providers Payer Name Payer Address Payer Phone Subscriber Number Group Number Insured Name Patient Relationship to Insured Coverage Start Date Coverage End Date [facility] [address] [place] [phone] [id number] DOUGLAS NUNO Self - patient is the insured Medical (General) History Medical History History ICD Code DM HTN Hyperlipidemia Asthma Denies CA,CVA,renal disease Kidney stones, treated with ESWL Surgical History Surgery Date(Month/Year) C-sections
[2025-03-01 10:47] LABS: MANUAL DIFF FLAG NO
[2025-03-01 11:03] LABS: Hematocrit 38.5 % (37.0-47.0); Hemoglobin 12.8 g/dl (12.0-16.0); Imm Gran Abs Auto 0.03 X10*3/uL (0.00-0.03); Imm Gran Pct Auto 0.4 % (0.0-0.4); Lymphocytes Absolute Auto 2.8 X10*3/uL (1.2-4.9); Mean Corpuscular HGB Conc 33.2 g/dl (31.0-35.0); Mean Corpuscular Hemoglobin 31.8 pg (27.0-33.0); Mean Corpuscular Volume 95.8 fL (80.0-98.0); NRBC Abs Auto 0.000 X10*3/uL (0.0-0.012); NRBC Pct Auto 0.0 /100WBC (0.0-0.2); Platelet Count 171 X10*3/uL (160-400); Red Blood Count 4.02 X10*6/uL (4.20-5.50); White Blood Count 7.5 X10*3/uL (4.8-10.8)
[2025-03-01 11:07] LABS: Hemoglobin A1C 249.8074 umol/L; Total Hemoglobin (HGBA1C) 3378.2793 umol/L
[2025-03-01 12:11] LABS: Alanine Aminotransferase 63 U/L (0-31); Albumin Level 4.1 g/dL (3.5-5.0); Alkaline Phosphatase 75 U/L (39-117); Anion Gap 13 (12-20); Aspartate Amino Transferase 54 U/L (5-31); Blood Urea Nitrogen 13 mg/dL (9-16); Calcium 9.2 mg/dL (8.4-10.2); Carbon Dioxide 23 mmol/L (22-29); Chloride 109 mmol/L (96-108); Cholesterol 119 mg/dL (<200); Estimated Glomerular Filt Rate > 60; HDL Cholesterol 39 mg/dL (>40); Potassium 4.2 mmol/L (3.3-5.1); Sodium 141 mmol/L (135-145); Total Protein 6.4 g/dL (6.5-8.0); Triglycerides 220 mg/dL (<150)
[2025-03-01 14:51] LABS: Microalbum/Creatinine Ratio Ur 19.6 ug/mg cr (<30)
== END 2025-03-01 06:17 | disposition home or self-care (01) ==
LOC: HO.HMGCLDS 06:16
PROVIDERS: PCP Internal Medicine Medical Oncology; Visit Provider Internal Medicine Medical Oncology
DX: E11.9 Type 2 diabetes mellitus without complications (principal); I10 Essential (primary) hypertension; E78.2 Mixed hyperlipidemia; E66.3 Overweight
CPT/HCPCS: 36415; 80053; 80061; 82043; 82570; 83036; 85025

== ENCOUNTER 2025-03-11 10:24 | Outpatient (REF) | payer MEDICARE, SELFPAY ==
--- OUTSIDE RECORDS SUMMARY | 2024-12-25 09:52 | XMS_ITS ---
Author Organization Harjeet Herman III, MD Address [address] [place] [place] [address] Care Team Providers Care Outdoor Illuminating Engineer Name Role Phone Harjeet Herman Primary Care Provider [phone] Medications Medication SIG (Take, Route, Frequency, Duration) [...] 90 Unknown Vitamin D (Ergocalciferol) 1.25 MG (23777 UT) TAKE 1 CAPSULE BY MOUTH ONE [...] Date Provider Diagnosis Harjeet Herman III, MD [address] [place] [address] [place] [address] 12/25/2024 Harjeet Herman Plan Of Treatment Next Appt Details Provider Name:Harjeet Herman, 06/10/2025 09:00:00 AM, [address] [facility] [address], [place], [address], Provider Name:Harjeet Herman, 11/11/2025 09:30:00 AM, [address] [place] [address] [address], [place], [address], Progress Notes * EDY NUNOAURELIODOB: [birth year] (69 yo F)Acc No.[id number]:12/25/2024 Patient: DOUGLAS SMITH :1955 A ge:69 Y S ex:Female Address:[address] [place] [address] [place], [address] Subjective: * Chief Complaints: * * Medical History: * Surgical History: * Hospitalization/Major Diagno stic Procedure: * Medications: U nknownOneTouch Verio - Strip USE TO TEST 3 TIMES A DAY Accu-Chek FastClix Lancets - Miscellaneous USE 4 TIMES A DAY 90 Vitamin D (Ergocalciferol) 1.25 MG (79255 UT) Capsule TAKE 1 CAPSULE BY MOUTH [...] 90 Unknown Vitamin D (Ergocalciferol) 1.25 MG (99425 UT) Capsule TAKE 1 CAPSULE BY MOUTH [...] * Date: Generated for Evgeny jones/Bernabe/Calvin on: 0 03/11/2025 10:54 AM EDT
--- NOTE | ~2025-03-11 | US_ITS ---
EXAMINATION: US TRIPLEX LOWER EXTREMITY, RIGHT CLINICAL INFORMATION: Popliteal pain and cordlike structure in the popliteal fossa COMPARISON: None available. TECHNIQUE: Color-flow triplex imaging with spectral analysis and compression Doppler were performed on the right lower extremity. FINDINGS: Respiratory variation, normal compression and augmented flow are noted throughout the right lower extremity. The visualized common femoral vein, superficial femoral vein, profunda femoral vein, popliteal vein and midcalf peroneal and posterior tibial venous segments show no evidence of deep venous thrombosis. There is an anechoic popliteal fossa mass with increased through transmission measuring 2.7 x 0.4 x 1.0 cm (CC by AP by transverse). US/US venous duplex LE RT IMPRESSION: No evidence of deep venous thrombosis involving the right lower extremity. Small Vazquez's cyst. Electronically signed by: Rashid Varma MD 03/11/2025 10:54 AM EDT
--- OUTSIDE RECORDS SUMMARY | 2025-03-11 10:55 | XMS_ITS | Patient Health Record ---
Author Organization [facility] Address [address] [place] [address] Care Team Providers Care Application Infrastructure Engineer Name Role Phone Kurt Ojeda Primary Care Provider Harjeet Horowitz Unavailable [phone] Reason For Referral No Information Medications Medication SIG (Take, Route, Frequency, Duration) Notes Start Date End Date Status Metformin & Diet Manage Prod Active MoviPrep 100 GM as directed Orally 05/02/2011 Active Januvia Active glyBURIDE Active Diovan Active Simvastatin Active Singulair Active Problems Problem Type SNOMED Code ICD Code Onset Dates Problem Status W/U Status Risk Notes Problem Screening for malignant neoplasm of colon (543456495) Special screening for malignant neoplasms, colon (V76.51) Active confirmed Plan Of Treatment Future Test Test Name Order Date COLONOSCOPY 05/02/2011 Insurance Providers Payer Name Payer Address Payer Phone Subscriber Number Group Number Insured Name Patient Relationship to Insured Coverage Start Date Coverage End Date [facility] [address] [place] [phone] [id number] DOUGLAS NUNO Self - patient is the insured Medical (General) History Medical History History ICD Code DM HTN Hyperlipidemia Asthma Denies OK,CVA,renal disease Kidney stones, treated with ESWL Surgical History Surgery Date(Month/Year) C-sections
== END 2025-03-11 10:25 | disposition home or self-care (01) ==
LOC: HO.US 10:24
PROVIDERS: Visit Provider Internal Medicine Medical Oncology
DX: M79.601 Pain in right arm (principal)
CPT/HCPCS: 93971

== ENCOUNTER → 2025-03-11 10:26 | Outpatient (BNV) | payer MEDICARE, SELFPAY | PROVIDERS: Visit Provider Radiology Diagnostic Radiology | DX: M79.661 Pain in right lower leg (principal); M71.21 Synovial cyst of popliteal space [Baker], right knee | CPT/HCPCS: 93971 ==

== ENCOUNTER 2025-05-07 13:18 | Outpatient (REF) | payer MEDICARE, SELFPAY ==
--- OUTSIDE RECORDS SUMMARY | 2024-11-09 05:30 | XMS_ITS ---
Author Organization Harjeet Hreman III, MD Address [address] [facility] [address] [address] [place] [address] Care Team Providers Care Lollypop Machine Operator Name Role Phone Harjeet Herman Primary Care [...] Date End Date Status BD Pen Needle Arabelal U/F 32G X 4 MM Check blood [...] 90 Active Vitamin D (Ergocalciferol) 1.25 MG (97500 UT) TAKE 1 CAPSULE BY MOUTH ONE [...] Date Provider Diagnosis Harjeet Herman III, MD [address] [place] [address] [place] [address] 11/09/2024 Harjeet Herman Type 2 diabetes henry itus without complications E11.9 ; Essential hypertension I10 ; Mixed hyperlipidemia E78.2 ; Overweight (BMI 25.0-29.9) E66.3 ; senior care current use of insulin Z79.4 ; Essential [...] excellent appetite. Is avoiding unhealthy eating. 11/09/2024 senior care current us e of insulin (ICD-10 - [...] DAY 90 Vitamin D (Ergocalciferol) 1.25 MG (53751 UT) TAKE 1 CAPSULE BY MOUTH ONE [...] Up: 4 Months, Reason: OV Provider Name:Harjeet Herman, 06/10/2025 09:00:00 AM, [address] [place] [address] [address], [place], [address], Provider Name:Harjeet Herman, 11/11/2025 09:30:00 AM, [address] [place] [address] [address], [place], [address], Progress Notes * DOUGLAS NUNODOB: [birth year] (69 yo F)Acc No.[id number]:11/09/2024 Progress Notes Patient: DOUGLAS SMITH Provider: Belén Herman MD :1955 A ge:69 Y S ex:Female Date:11/09/2024 Address:[address] [place], [place] [phone] Subjective: * Chief Complaints: * A nnual Exam * HPI: D epression Screening: She reeturns to the office for her annual physical examination at the age of 69. He says she has been compliant with all of her medications.She and her have recently been on [employer].His lost 3 pounds since her last visit. [...] left ureter, retro-grade pyelogram 2005colonoscopy, Dr. Landaverde, [facility], negative 2011history of one tubal No history [...] born in [place]. She works in a [employer]. She has a son Sai and [...] EVENING SUBCUTANEOUSLY Vitamin D (Ergocalciferol) 1.25 MG (71265 UT) Capsule TAKE 1 CAPSULE BY MOUTH [...] SUBCUTANEOUSLY Taking Vitamin D (Ergocalciferol) 1.25 MG (77963 UT) Capsule TAKE 1 CAPSULE BY MOUTH [...] 0.000 (Ref Range: 0.0-0.012 X10*3/uL) * Lab:[facility] * Collection Date 11/03/2024 [...] palpation or auscultation. 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
--- OUTSIDE RECORDS SUMMARY | 2024-12-25 09:52 | XMS_ITS ---
Author Organization Harjeet Herman III, MD Address [address] [place] [place] [address] Care Team Providers Care Fresh Foods Clerk Name Role Phone Harjeet Herman Primary Care [...] 90 Unknown Vitamin D (Ergocalciferol) 1.25 MG (21818 UT) TAKE 1 CAPSULE BY MOUTH ONE [...] Provider Diagnosis Harjeet Herman III, MD [address] [place] [address] [place] [address] 12/25/2024 Harjeet Herman Plan Of Treatment Next Appt Details Provider Name:Harjeet Herman, 06/10/2025 09:00:00 AM, [address] [facility] [address], [place], [address], Provider Name:Harjeet Herman, 11/11/2025 09:30:00 AM, [address] [place] [address] [address], [place], [address], Progress Notes * EDY NUNOAURELIODOB: [birth year] (69 yo F)Acc No.[id number]:12/25/2024 Patient: DOUGLAS SMITH :1955 A ge:69 Y S ex:Female Address:[address] [place] [address] [place], [address] Subjective: * Chief Complaints: * * Medical History: * Surgical History: * Hospitalization/Major Diagno stic Procedure: * Medications: U nknownOneTouch Verio - Strip USE TO TEST 3 TIMES A DAY Accu-Chek FastClix Lancets - Miscellaneous USE 4 TIMES A DAY 90 Vitamin D (Ergocalciferol) 1.25 MG (83959 UT) Capsule TAKE 1 CAPSULE BY MOUTH [...] 90 Unknown Vitamin D (Ergocalciferol) 1.25 MG (16509 UT) Capsule TAKE 1 CAPSULE BY MOUTH [...] Date: Generated for Evgeny jones/Bernabe/Calvin on: 0 05/07/2025 03:50 PM EDT
--- OUTSIDE RECORDS SUMMARY | 2024-12-25 09:56 | XMS_ITS ---
Author Organization Harjeet Herman III, MD Address [address] [facility] [place] [address] Care Team Providers Care Postbed Stitcher Name Role Phone Harjeet Herman Primary Care Provider REASON FOR VISIT Rx [...] Date Provider Diagnosis Harjeet Herman III, MD [address] [place] [address] [address] [place] [address] 12/25/2024 Harjeet Herman Type 2 diabetes mellitus [...] meals 08/30/2020 Next Appt Details Provider Name:Harjeet Herman, 06/10/2025 09:00:00 AM, [address] [facility] [address] [place], [address], Provider Name:Harjeet Herman, 11/11/2025 09:30:00 AM, [address], [place], [address], Progress Notes * NURYS DOUGLASDOB: [birth year] (69 yo F)Acc No.[id number]:12/25/2024 Patient: DOUGLAS SMITH :1955 A ge:69 Y S ex:Female Address:[address] [place] [address], [place], [address] * Refills Stop HumaLOG KwikPen Solution Pen-injector, 100 UNIT/ML, Subcutaneous, 20 units, three times daily with meals Start NovoLOG FlexPen Solution Pen-injector, 100 UNIT/ML, Subcutaneous, 45 Unspecified, 15 units, 3 times a day with meals, 90 days, Refills=3 * true * Date: Generated for Evgeny jones/Bernabe/eTsusanasmitting on: 0 05/07/2025 03:51 PM EDT
--- OUTSIDE RECORDS SUMMARY | 2025-03-11 05:30 | XMS_ITS ---
Author Organization Harjeet Herman III, MD Address [address] [place] [address] Care Team Providers Care Adult Probation Officer Name Role Phone Harjeet Herman Primary Care [...] 06/11/2024 Active Vitamin D (Ergocalciferol) 1.25 MG (38300 UT) TAKE 1 CAPSULE BY MOUTH ONE [...] Date Provider Diagnosis Harjeet Herman III, MD [address] [place] [address] [place] [address] 03/11/2025 Harjeet Herman Type 2 diabetes henry [...] diabetes mellitus Vitamin D (Ergocalciferol) 1.25 MG (19690 UT) TAKE 1 CAPSULE BY MOUTH ONE [...] months, Reason: OV review labs Provider Name:Harjeet Herman, 06/10/2025 09:00:00 AM, [address] [place] [address] [address], [place], [phone], Provider Name:Harjeet Herman, 11/11/2025 09:30:00 AM, [address] [place] [address] [address], [place], [address], Progress Notes * EDY NUNOAURELIODOB: [birth year] (69 yo F)Acc No.[id number]:03/11/2025 Progress Notes Patient: DOUGLAS SMITH Provider: Belén Herman MD :1955 A ge:69 Y S ex:Female Date:03/11/2025 Address:[address] [place] [address] [id number] Subjective: * Chief Complaints: * R ight [...] 2004cystoscopy, stent insertion left ureter, retro-grade pyelogram 2004colonoscopy, Dr. Landaverde, [facility], negative 2011history of one tubal No [...] born in [place]. She works in a [employer]. She has a son Sai and [...] DAY 90 Vitamin D (Ergocalciferol) 1.25 MG (69423 UT) Capsule TAKE 1 CAPSULE BY MOUTH [...] 90 Taking Vitamin D (Ergocalciferol) 1.25 MG (66847 UT) Capsule TAKE 1 CAPSULE BY MOUTH [...] and reconciled with the patient * Allergies: B karina Meng[Allergies Verified] Objective: * Vitals: H t: [...] 0.000 (Ref Range: 0.0-0.012 X10*3/uL) * Lab:[facility] * Collection Date 03/01/2025 [...] ontinue Vitamin D (Ergocalciferol) Capsule, 1.25 MG (56656 UT), TAKE 1 CAPSULE BY MOUTH ONE [...] 0 03/11/2025 Generated for Evgeny jones/Bernabe/eTransmitting on: 0 05/07/2025 03:51 PM EDT History and Physical Notes * [...]
--- OUTSIDE RECORDS SUMMARY | 2025-03-15 05:56 | XMS_ITS ---
Author Organization Harjeet Herman III, MD Address [address] [place] [address] Care Team Providers Care Cabin Worker Name Role Phone Harjeet Herman Primary Care Provider REASON FOR VISIT Questioning Rx Social History Sex Assigned At : Social History Observation Description Sex Assigned At Female Encounters Encounter Location Date Provider Diagnosis Harjeet Herman III, MD [address] [place] [address] [place] [address] 03/15/2025 Harjeet Herman Plan Of Treatment Next Appt Details Provider Name:Harjeet Herman, 06/10/2025 09:00:00 AM, [address] [place] [address] [place], [address], Provider Name:Harjeet Herman, 11/11/2025 09:30:00 AM, [address] [place] [address] [place], [address], Progress Notes * DOUGLAS NUNODOB: [birth year] (69 yo F)Acc No.[id number]:03/15/2025 Patient: EDY SMITHCELYNE :1955 A ge:69 Y S ex:Female Address:[address] [place] [address], [phone] * true * Date: Generated for Printi ng/Faxing/eTransmitting on: 0 05/07/2025 03:51 PM EDT
--- OUTSIDE RECORDS SUMMARY | 2025-05-07 15:51 | XMS_ITS | Patient Health Record ---
Author Organization Harjeet Herman III, MD Address [address] [place] [address] Care Team Providers Care Administrative Job Titles Name Role Phone Harjeet Herman Primary Care Provider Allergies Allergen (clinical drug ingredient) Drug/Non Drug Allergy documented on EMR Reaction Allergy Type Onset Date Status insulin glargine Basaglar KwikPen Unknown Drug Allergy Active Results Component Value [...] 1.3 BLD 5-10 Negative - Menstrating No Complete Blood Count Auto Di ff Reviewed date:06/08/2024 07:07:35 AM Interpretation: Performing Lab:[facility], [address] [place] [phone] Notes/Report: White Blood Count 6.7 4.8-10.8 X10*3/uL [...] 0.0-0.2 /100WBC Neutrophils Absolute Auto 3.6 2.0-8.3 x10*3/u L Imm Gran Abs Auto 0.03 0.00-0.03 X10*3/uL Lymphocytes Absolute Auto 1.9 1.2-4.9 X10*3/u L Monocytes Absolute Auto 0.7 0.1-1.2 X10*3/uL Eosinophils Absolute Auto 0.4 0.0-0.4 X10*3/u L Basophils Absolute Auto 0.0 0.0-0.2 X10*3/uL NRBC Abs Auto 0.000 0.0-0.012 X10*3/uL Comprehensive [place]. Panel Fa st Reviewed date:06/08/2024 07:07:36 AM Interpretation: Performing Lab:[facility], [address] [place] [phone] Notes/Report: Sodium 142 135-145 mmol/L Potassium 3.9 3.3-5.1 mmol/L Chloride 107 96-108 mmol/L Carbon Dioxide 27 22-29 mmol/L Anion Gap 12 12-20 Blood Urea Nitrogen 11 9-16 mg/dL Creatinine 0.77 0.5-1.4 mg/dL Estimated Glomerular Filt Rate > 60 NOTE: For -Greek individuals, multiply the result by 1.210. Chronic [...] Panel Reviewed date:06/08/2024 07:07:36 AM Interpretation: Performing Lab:[facility], [address] [place] [phone] Notes/Report: Triglycerides 182 <150 mg/dL Desirable Triglyceride: [...] Random Reviewed date:06/08/2024 07:07:36 AM Interpretation: Performing Lab:[facility], [address] [place] [phone] Notes/Report: Creatinine Urine 102.31 Microalbumin Urine 27.0 Microalbum/Creatinine Ratio Ur 26.3 <30 ug/mg cr Albumin/Creatinine Ratio Reference Ranges: Normal: < 30 ug/mg creatinine Microalbuminuria: 30 - 300 ug/mg creatinine Clinical Albuminuria: > 300 ug/mg creatinine Hemoglobin A1c Reviewed date:06/08/2024 07:07:36 AM Interpretation: Performing Lab:[facility], [address] [place] [phone] Notes/Report: Hemoglobin A1c % 8.7 <6.0 % [...] average glucose, using the formula of the [id number] Average Glucose study (ADAG), Diabetes Care, Vol.31,#8, Mar. 2007 Complete Blood Count Auto Di ff Reviewed date:11/08/2024 10:10:34 AM Interpretation: Performing Lab:[facility], [address] [place] [phone] Notes/Report: White Blood Count 7.8 4.8-10.8 X10*3/uL Red Blood Count 4.10 4.20-5.50 X10*6/uL Hemoglobin 13.3 12.0-16.0 g/dl Hematocrit 39.4 37.0-47.0 % Mean Corpuscular Volume 96.1 80.0-98.0 fL Mean Corpuscular Hemoglobin 32.4 27.0-33.0 pg Mean Corpuscular HGB Conc 33.8 31.0-35.0 g/dl Red Cell Distribution Width 12.8 11.0-16.0 % Platelet Count 201 160-400 X10*3/uL Mean Platelet Volume 11.4 9.4-12.3 fL Neutrophils Percent Auto 46.9 45-73 % Imm Gran Pct Auto 0.4 0.0-0.4 % Lymphocytes Percent Auto 33.1 20-40 % Monocytes Percent Auto 11.1 2-11 % Eosinophils Percent Auto 8.1 0-4 % Basophils Percent Auto 0.4 0-2 % NRBC Pct Auto 0.0 0.0-0.2 /100WBC Neutrophils Absolute Auto 3.7 2.0-8.3 x10*3/u L Imm Gran Abs Auto 0.03 0.00-0.03 X10*3/uL Lymphocytes Absolute Auto 2.6 1.2-4.9 X10*3/u L Monocytes Absolute Auto 0.9 0.1-1.2 X10*3/uL Eosinophils Absolute Auto 0.6 0.0-0.4 X10*3/u L Basophils Absolute Auto 0.0 0.0-0.2 X10*3/uL NRBC Abs Auto 0.000 0.0-0.012 X10*3/uL Comprehensive [place]. Panel Fa st Reviewed date:11/08/2024 10:10:34 AM Interpretation: Performing Lab:[facility], [address] [place] [phone] Notes/Report: Sodium 141 135-145 mmol/L Potassium 4.2 3.3-5.1 mmol/L Chloride 108 96-108 mmol/L Carbon Dioxide 25 22-29 mmol/L Anion Gap 12 12-20 Blood Urea Nitrogen 17 9-16 mg/dL Creatinine 0.84 0.5-1.4 mg/dL Estimated Glomerular Filt Rate > 60 Chronic Kidney Disease: Estimated GFR < 60 mL/min/1.73m2 Severe Kidney Disease: Estimated GFR < 15 mL/min/1.73m2 Glucose Fasting 118 60-99 mg/dL A fasting glucose from 100-125 mg/dl is considered impaired (pre-diabetes). Calcium 9.0 8.4-10.2 mg/dL Bilirubin Total 0.8 0.0-1.0 mg/dL Aspartate Amino Transferase 41 5-31 U/L Alanine Aminotransferase 45 0-31 U/L Total Protein 7.2 6.5-8.0 g/dL Albumin Level 4.1 3.5-5.0 g/dL Alkaline Phosphatase 78 39-117 U/L Lipid Panel Reviewed date:11/08/2024 10:10:34 AM Interpretation: Performing Lab:[facility], [address] [place] [phone] Notes/Report: Triglycerides 126 <150 mg/dL Desirable Triglyceride: less than 150 mg/dL Borderline High Triglyceride 150-199 mg/dL High Triglyceride: 200-499 mg/dL Very High Triglyceride: greater than or equal to 5OO mg/dL Cholesterol 117 <200 mg/dL Desirable Cholesterol: less than 200 mg/dL Borderline High Cholesterol: 200-239 mg/dL High Cholesterol: greater than 239 mg/dL LDL Cholesterol Calculated 51 <100 mg/dL Desirable LDL: less than 100 mg/dL Near Optimal/Above Optimal LDL: 110-129 mg/dL Borderline High LDL: 130-159 mg/dL High LDL: 160-189 mg/dL Very High LDL: greater than or equal to 190 mg/dL HDL Cholesterol 41 >40 mg/dL Desirable HDL: greater than 40 mg/dL Note: This HDL assay may give artificially low results in patients with liver disease. Microalbumin, Random Reviewed date:11/08/2024 10:10:34 AM Interpretation: Performing Lab:[facility], [address] [place] [phone] Notes/Report: Creatinine Urine 74.69 Microalbumin Urine 7.0 Microalbum/Creatinine Ratio Ur 9.3 <30 ug/mg cr Albumin/Creatinine Ratio Reference Ranges: Normal: < 30 ug/mg creatinine Microalbuminuria: 30 - 300 ug/mg creatinine Clinical Albuminuria: > 300 ug/mg creatinine Hemoglobin A1c Reviewed date:11/08/2024 10:10:34 AM Interpretation: Performing Lab:[facility], [address] [place] [phone] Notes/Report: Hemoglobin A1c % 8.3 <6.0 % Hemoglobin A1C Reference Range Adults: 4.8 - 6.0 % Non diabetic: < 6.0 % Goal: < 7.0 % Additional Action Suggested: > 8.0 % Note: Hemoglobin A1c results are invalid for patients with abnormal amounts of HbF. Blood transfusions may impact the HbA1c concentration in the patient sample. Estimated Average Glucose 192 eAG = Estimated average glucose which is %A1C expressed as average glucose, using the formula of the N6Z-Hmahoke Average Glucose study (ADAG), Diabetes Care, Vol.31,#8, 2007 Complete Blood Count Auto Di ff Reviewed date:03/07/2025 09:45:33 AM Interpretation: Performing Lab:[facility], [address] [place] [phone] Notes/Report: White Blood Count 7.5 4.8-10.8 X10*3/uL Red Blood Count 4.02 4.20-5.50 X10*6/uL Hemoglobin 12.8 12.0-16.0 g/dl Hematocrit 38.5 37.0-47.0 % Mean Corpuscular Volume 95.8 80.0-98.0 fL Mean Corpuscular Hemoglobin 31.8 27.0-33.0 pg Mean Corpuscular HGB Conc 33.2 31.0-35.0 g/dl Red Cell Distribution Width 12.9 11.0-16.0 % Platelet Count 171 160-400 X10*3/uL Mean Platelet Volume 11.9 9.4-12.3 fL Neutrophils Percent Auto 45.1 45-73 % Imm Gran Pct Auto 0.4 0.0-0.4 % Lymphocytes Percent Auto 37.7 20-40 % Monocytes Percent Auto 10.3 2-11 % Eosinophils Percent Auto 6.1 0-4 % Basophils Percent Auto 0.4 0-2 % NRBC Pct Auto 0.0 0.0-0.2 /100WBC Neutrophils Absolute Auto 3.4 2.0-8.3 x10*3/u L Imm Gran Abs Auto 0.03 0.00-0.03 X10*3/uL Lymphocytes Absolute Auto 2.8 1.2-4.9 X10*3/u L Monocytes Absolute Auto 0.8 0.1-1.2 X10*3/uL Eosinophils Absolute Auto 0.5 0.0-0.4 X10*3/u L Basophils Absolute Auto 0.0 0.0-0.2 X10*3/uL NRBC Abs Auto 0.000 0.0-0.012 X10*3/uL Comprehensive [place]. Panel Fa st Reviewed date:03/07/2025 09:45:33 AM Interpretation: Performing Lab:[facility], [address] [place] [phone] Notes/Report: Sodium 141 135-145 mmol/L Potassium 4.2 3.3-5.1 mmol/L Chloride 109 96-108 mmol/L Carbon Dioxide 23 22-29 mmol/L Anion Gap 13 12-20 Blood Urea Nitrogen 13 9-16 mg/dL Creatinine 0.77 0.5-1.4 mg/dL Estimated Glomerular Filt Rate > 60 Chronic Kidney Disease: Estimated GFR < 60 mL/min/1.73m2 Severe Kidney Disease: Estimated GFR < 15 mL/min/1.73m2 Glucose Fasting 153 60-99 mg/dL A fasting glucose of 126 mg/dl or greater on more than one occasion is considered diagnostic of diabetes. Calcium 9.2 8.4-10.2 mg/dL Bilirubin Total 0.4 0.0-1.0 mg/dL Aspartate Amino Transferase 54 5-31 U/L Alanine Aminotransferase 63 0-31 U/L Total Protein 6.4 6.5-8.0 g/dL Albumin Level 4.1 3.5-5.0 g/dL Alkaline Phosphatase 75 39-117 U/L Lipid Panel Reviewed date:03/07/2025 09:45:33 AM Interpretation: Performing Lab:[facility], [address] [place] [phone] Notes/Report: Triglycerides 220 <150 mg/dL Desirable Triglyceride: less than 150 mg/dL Borderline High Triglyceride 150-199 mg/dL High Triglyceride: 200-499 mg/dL Very High Triglyceride: greater than or equal to 5OO mg/dL Cholesterol 119 <200 mg/dL Desirable Cholesterol: less than 200 mg/dL Borderline High Cholesterol: 200-239 mg/dL High Cholesterol: greater than 239 mg/dL LDL Cholesterol Calculated 36 <100 mg/dL Desirable LDL: less than 100 mg/dL Near Optimal/Above Optimal LDL: 110-129 mg/dL Borderline High LDL: 130-159 mg/dL High LDL: 160-189 mg/dL Very High LDL: greater than or equal to 190 mg/dL HDL Cholesterol 39 >40 mg/dL Desirable HDL: greater than 40 mg/dL Note: This HDL assay may give artificially low results in patients with liver disease. Microalbumin, Random Reviewed date:03/07/2025 09:45:33 AM Interpretation: Performing Lab:[facility], [address] [place] [phone] Notes/Report: Creatinine Urine 167.98 Microalbumin Urine 33.0 Microalbum/Creatinine Ratio Ur 19.6 <30 ug/mg cr Albumin/Creatinine Ratio Reference Ranges: Normal: < 30 ug/mg creatinine Microalbuminuria: 30 - 300 ug/mg creatinine Clinical Albuminuria: > 300 ug/mg creatinine Hemoglobin A1c Reviewed date:03/07/2025 09:45:33 AM Interpretation: Performing Lab:[facility], [address] [place] [phone] Notes/Report: Hemoglobin A1c % 8.9 <6.0 % Hemoglobin A1C Reference Range Adults: 4.8 - 6.0 % Non diabetic: < 6.0 % Goal: < 7.0 % Additional Action Suggested: > 8.0 % Note: Hemoglobin A1c results are invalid for patients with abnormal amounts of HbF. Blood transfusions may impact the HbA1c concentration in the patient sample. Estimated Average Glucose 209 eAG = Estimated average glucose which is %A1C expressed as average glucose, using the formula of the S0H-Xeqekzl Average Glucose study (ADAG), Diabetes Care, Vol.31,#8, Mar. 2007 Diabetic Eye Exam Reviewed date:04/19/2025 11:13:00 AM Interpretation:undefined Performing Lab: Notes/Report: undefined Reason For Referral No Information Medications Medication SIG (Take, Route, Frequency, Duration) Notes Start Date End Date Status Irbesartan 150 MG TAKE 1 TABLET BY PRADEEP TH EVERY DAY for 90 Active BD Pen Needle Arabella U/F 32G X 4 MM Check blood sugar 4 times a day E11.9 Type 2 diabetes mellitus 06/11/2024 Active Simvastatin 20 MG 1 tablet Orally Once a day Active Gabapentin 300 MG TAKE 1 CAPSULE BY MOUTH EVERY DAY Active Montelukast Sodium 10 MG TAKE 1 TABLET BY MOUTH EVERY DAY Active NovoLOG FlexPen 100 UNIT/ML 15 units Subcutaneous 3 times a day with meals As needed E11.9 Type 2 Diabetes 12/25/2024 Active OneTouch Verio - USE TO TEST 3 TIMES A DAY Active Lantus SoloStar 100 UNIT/ML 75 units Subcutaneous twice a day for 28 days 03/12/2025 Active Accu-Chek FastClix Lancets - USE 4 TIMES A DAY 90 Active Vitamin D (Ergocalciferol) 1.25 MG (86545 UT) TAKE 1 CAPSULE BY MOUTH ONE TIME PER WEEK Active Lantus SoloStar 100 UNIT/ML INJECT 100 UNITS EVERY EVENING SUBCUTANEOUSLY Active metFORMIN HCl 500 MG TAKE 2 TABLETS BY MOUTH TWICE A DAY WITH A MEAL 90 Active Immunizations Vaccine Route Administration Date [...] Administered COVID Moderna Bivalent Unknown 06/11/2022 Administered [employer] Unknown 09/23/2023 Administer ed Influenza-iiv4 p-free high dose Unknown 09/23/2023 Administered [employer] COVID-19 12+ Unknown 05/13/2024 Administered [employer] COVID-19 12+ Unknown 09/23/2023 Administered Fluzone High-Dose (HD-IIV3) Unknown 05/13/2024 Administered Flu-IIv4pf Unknown 06/01/2020 Administered Influenza-iiv4 p-free high dose Unknown 06/11/2022 Administered Flu-IIv4pf Unknown 06/11/2018 Administered Social History Tobacco Use: Social History [...] Problem Status W/U Status Risk Notes Problem 465745373 Overweight (BMI 25.0-29.9) (E66.3) Active confirmed Her body mass index is 28. I reviewed with her the relationship between weight and control of diabetes and the long-term consequences of uncontrolled hyperglycemia. Problem 33985583 Type 2 diabetes mellitus without complications (E11.9) Active confirmed I have increased your Lantus insulin to 75 twice a day as her hemoglobin A1c was 8.9. Once again, I made the point that weight loss was the past month issue in controlling her diabetes. Problem 683684455 Mixed hyperlipidemia (E78.2) Active confirmed Her lipids are currently stable and no change in her regimen was necessary today. Problem 735803661 Essential tremor (G25.0) Active confirmed The tremor was not present today. She has had no difficulty conducting activities of daily life. Problem 33603081 Ureterolithiasis (N20.1) Active confirmed She has had no renal colic or kidney stone since her last visit. Problem 74830268 Essential hypertension (I10) Active confirmed The blood pressure is currently normal. No change in her regimen was necessary. Problem Long-term current use of insulin (293432727) shelter current use of insulin (Z79.4) Active confirmed She understands how to use the insulin and to test urine. She has no difficulty with injections. 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 Her face was symmetrical. Vital Signs Heart Rate 78 /min 03/11/2025 Temperature 97.3 degrees Fahrenheit 03/11/2025 Blood pressure diastolic 62 mm Hg 03/11/2025 Height 60 in 03/11/2025 Blood pressure systolic 132 mm Hg 03/11/2025 Weight 148 lbs 03/11/2025 BMI 28.9 kg/m2 03/11/2025 Encounters Encounter Location Date Provider Diagnosis Harjeet Herman III, MD [address] [place] [address] [place] [phone] 06/11/2024 Hajreet Herman Type 2 diabetes henry itus without complications E11.9 ; Mixed hyperlipidemia E78.2 ; Overweight (BMI 25.0-29.9) E66.3 ; Essential tremor G25.0 and Ureterolithiasis N20.1 Harjeet Herman III, MD [address] [place] [address] [place] [phone] 11/09/2024 Harjeet Herman Type 2 diabetes henry itus without complications E11.9 ; Essential hypertension I10 ; Mixed hyperlipidemia E78.2 ; Overweight (BMI 25.0-29.9) E66.3 ; 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 ; Essential tremor G25.0 and Ureterolithiasis N20.1 Harjeet Herman III, MD [address] [place] [address] [place] [address] 03/11/2025 Harjeet Herman Type 2 diabetes henry itus without complications E11.9 ; Popliteal pain M79.609 ; Essential hypertension I10 ; Overweight (BMI 25.0-29.9) E66.3 ; Encounter for screening mammogram for malignant neoplasm of breast Z12.31 ; Essential tremor G25.0 ; Ureterolithiasis N20.1 ; Mixed hyperlipidemia E78.2 and History of Cooper's palsy Z86.69 Harjeet Herman III, MD [address] [place] [address] [place] [address] 09/22/2024 Harjeet Herman III, MD [address] [place] [address] [place] [phone] 09/24/2024 Harjeet Herman III, MD [address] [place] [address] [place] [address] 12/25/2024 Harjeet Herman III, MD [address] [place] [address] [place] [phone] 12/25/2024 Harjeet Herman Type 2 diabetes henry itus without complications E11.9 Harjeet Herman III, MD [address] [place] [address] [address] [place], [place] [phone] 03/15/2025 Harjeet Herman Assessments Encounter Date Diagnosis (ICD [...] made. I strongly recommended aggressive weight loss. 11/09/2024 Type 2 diabetes mellitus without complications [...] made no change in her medical regimen. 03/11/2025 Type 2 diabetes mellitus without complications [...] did show a 2.7 cm popliteal cyst. 12/25/2024 Type 2 diabetes mellitus without complications (ICD-10 - E11.9) 06/11/2024 Overweight (BMI 25.0-29.9) (ICD-10 - E66.3) She weighs 134 pounds for a body mass index of 29.68. We discussed weight reduction strategies. We discussed her diet and nutrition. We discussed her lipids and A1c. She was educated about the relationship between weight and diet and longevity. 11/09/2024 Mixed hyperlipidemia (ICD-10 - E78.2) Her lipids are currently stable and no change in her regimen was necessary today. 03/11/2025 Essential hypertensi on (ICD-10 - I10) The blood pressure is currently normal. No change in her regimen was necessary. 06/11/2024 Essential tremor (ICD-10 - G25.0) The tremor was not present today. She has had no difficulty conducting activities of daily life. 11/09/2024 Overweight (BMI 25.0-29.9) (ICD-10 - E66.3) Despite the 2 cruises she has lost 3 pounds. She reports an excellent appetite. Is avoiding unhealthy eating. 03/11/2025 Overweight (BMI 25.0-29.9) (ICD-10 - E66.3) Her body mass index is 28. I reviewed with her the relationship between weight and control of diabetes and the long-term consequences of uncontrolled hyperglycemia. 06/11/2024 Ureterolithiasis (ICD-10 - N20.1) She has had no renal colic or kidney stone since her last visit. 11/09/2024 shelter current us e of insulin (ICD-10 - Z79.4) She understands how to use the insulin and to test urine. She has no difficulty with injections. 03/11/2025 Encounter for screening mammogram for malignant neoplasm of breast (ICD-10 - Z12.31) Her annual screening mammogram was ordered. 11/09/2024 Essential tremor (ICD-10 - G25.0) The tremor was not present today. She has had no difficulty conducting activities of daily life. 03/11/2025 Essential tremor (ICD-10 - G25.0) The tremor was not present today. She has had no difficulty conducting activities of daily life. 11/09/2024 Ureterolithiasis (ICD-10 - N20.1) She has had no renal colic or kidney stone since her last visit. 03/11/2025 Ureterolithiasis (ICD-10 - N20.1) She has had no renal colic or kidney stone since her last visit. 03/11/2025 Mixed hyperlipidemia (ICD-10 - E78.2) Her lipids are currently stable and no change in her regimen was necessary today. 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 Her face was symmetrical. 09/22/2024 Other CancelRx Respon se got Denied on 2024-09-24 13:20:05 for 'Basaglar KwikPen 100 UNIT/ML Solution Pen-injector'Chelo loomis Notes: Prescription not found. Contact Pharmacy by other means Plan Of Treatment Pending Test Test Name Order Date PROFILE, FASTING (COMPREHENSIVE METABOLI C) 11/04/2023 PROFILE, FASTING (COMPREHENSIVE METABOLI C) 07/17/2022 PROFILE, FASTING (COMPREHENSIVE METABOLI C) 10/16/2019 PROFILE, FASTING (COMPREHENSIVE METABOLI C) 07/25/2023 PROFILE, FASTING (COMPREHENSIVE METABOLI C) 05/15/2022 PROFILE, FASTING (COMPREHENSIVE METABOLI C) 06/12/2019 PROFILE, FASTING (COMPREHENSIVE METABOLI C) 01/30/2022 PROFILE, FASTING (COMPREHENSIVE METABOLI C) 10/31/2021 PROFILE, FASTING (COMPREHENSIVE METABOLI C) 10/31/2018 PROFILE, FASTING (COMPREHENSIVE METABOLI C) 07/31/2021 PROFILE, FASTING (COMPREHENSIVE METABOLI C) 03/28/2018 PROFILE, FASTING (COMPREHENSIVE METABOLI C) 11/29/2020 PROFILE, FASTING (COMPREHENSIVE METABOLI C) 08/30/2020 PROFILE, FASTING (COMPREHENSIVE METABOLI C) 07/25/2018 PROFILE, FASTING (COMPREHENSIVE METABOLI C) 03/31/2021 PROFILE, FASTING (COMPREHENSIVE METABOLI C) 03/11/2025 PROFILE, FASTING (COMPREHENSIVE METABOLI C) 11/09/2024 PROFILE, FASTING (COMPREHENSIVE METABOLI C) 06/11/2024 PROFILE, FASTING (COMPREHENSIVE METABOLI C) 03/28/2023 PROFILE, FASTING (COMPREHENSIVE METABOLI C) 03/06/2024 PROFILE, FASTING (COMPREHENSIVE METABOLI C) 11/22/2022 PROFILE, FASTING (COMPREHENSIVE METABOLI C) 02/19/2020 PROFILE, RANDOM (COMPREHENSIVE METABOLIC ) 05/10/2020 PROFILE, RANDOM (COMPREHENSIVE METABOLIC ) 02/06/2019 HEMOGLOBIN A1C (GLYCOHEMOGLOBIN) 023 HEMOGLOBIN A1C (GLYCOHEMOGLOBIN) 019 HEMOGLOBIN A1C (GLYCOHEMOGLOBIN) 020 HEMOGLOBIN A1C (GLYCOHEMOGLOBIN) 023 HEMOGLOBIN A1C (GLYCOHEMOGLOBIN) 022 HEMOGLOBIN A1C (GLYCOHEMOGLOBIN) 020 HEMOGLOBIN A1C (GLYCOHEMOGLOBIN) 022 HEMOGLOBIN A1C (GLYCOHEMOGLOBIN) 019 HEMOGLOBIN A1C (GLYCOHEMOGLOBIN) 022 HEMOGLOBIN A1C (GLYCOHEMOGLOBIN) 022 HEMOGLOBIN A1C (GLYCOHEMOGLOBIN) 019 HEMOGLOBIN A1C (GLYCOHEMOGLOBIN) 021 HEMOGLOBIN A1C (GLYCOHEMOGLOBIN) 018 HEMOGLOBIN A1C (GLYCOHEMOGLOBIN) 021 HEMOGLOBIN A1C (GLYCOHEMOGLOBIN) 018 HEMOGLOBIN A1C (GLYCOHEMOGLOBIN) 021 HEMOGLOBIN A1C (GLYCOHEMOGLOBIN) 020 LIPID PANEL 05/10/2020 LIPID PANEL 03/28/2023 LIPID PANEL 02/06/2019 LIPID PANEL 02/19/2020 LIPID PANEL 11/22/2022 LIPID PANEL 07/17/2022 LIPID PANEL 10/16/2019 LIPID PANEL 05/15/2022 LIPID PANEL 06/12/2019 LIPID PANEL 01/30/2022 LIPID PANEL 10/31/2021 LIPID PANEL 10/31/2018 LIPID PANEL 03/28/2018 LIPID PANEL 08/30/2020 LIPID PANEL 07/25/2018 MICROALBUMIN, RANDOM 08/30/2020 MICROALBUMIN, RANDOM 03/28/2023 MICROALBUMIN, RANDOM 02/06/2019 MICROALBUMIN, RANDOM 11/22/2022 MICROALBUMIN, RANDOM 07/17/2022 MICROALBUMIN, RANDOM 05/15/2022 MICROALBUMIN, RANDOM 10/31/2021 MICROALBUMIN, RANDOM 03/28/2018 CBC w DIFF 11/09/2024 CBC w DIFF 07/25/2018 CBC w DIFF 03/28/2018 CBC w DIFF 08/30/2020 CBC w DIFF 05/10/2020 CBC w DIFF 02/19/2020 CBC w DIFF 11/29/2020 CBC w DIFF 10/16/2019 CBC w DIFF 07/31/2021 CBC w DIFF 06/12/2019 CBC w DIFF 03/28/2023 CBC w DIFF 01/30/2022 CBC w DIFF 02/06/2019 CBC w DIFF 11/22/2022 CBC w DIFF 10/31/2018 CBC w DIFF 07/17/2022 CBC w DIFF 05/15/2022 CBC w DIFF 03/31/2021 CBC w DIFF 03/11/2025 CBC w DIFF 10/31/2021 MAMMOGRAM DIGITAL BILATERAL SCREEN 03/28 MAMMOGRAM DIGITAL BILATERAL SCREEN 11/29 MAMMOGRAM DIGITAL BILATERAL SCREEN 10/16 MAMMOGRAM DIGITAL BILATERAL SCREEN 03/28 MAMMOGRAM DIGITAL BILATERAL SCREEN 01/30 MAMMOGRAM DIGITAL BILATERAL SCREEN 02/06 US LEG RT VENOUS DOPPLER 03/11/2025 VITAMIN D 25-OH TOTAL 06/12/2019 CBC WITH AUTO DIFF 06/11/2024 CBC WITH AUTO DIFF 03/06/2024 CBC WITH AUTO DIFF 11/04/2023 CBC WITH AUTO DIFF 07/25/2023 Lipid Panel 03/31/2021 Lipid Panel 03/11/2025 Lipid Panel 11/09/2024 Lipid Panel 06/11/2024 Lipid Panel 03/06/2024 Lipid Panel 11/04/2023 Lipid Panel 07/25/2023 Lipid Panel 11/29/2020 Lipid Panel 07/31/2021 Microalbumin, Random 07/31/2021 Microalbumin, Random 03/11/2025 Microalbumin, Random 11/09/2024 Microalbumin, Random 06/11/2024 Microalbumin, Random 03/06/2024 Microalbumin, Random 11/04/2023 Microalbumin, Random 07/25/2023 Microalbumin, Random 11/29/2020 MM screening mammo BI 03/11/2025 Hemoglobin A1c 11/29/2020 Hemoglobin A1c 03/11/2025 Hemoglobin A1c 11/09/2024 Hemoglobin A1c 06/11/2024 Hemoglobin A1c 03/06/2024 Hemoglobin A1c 11/04/2023 Hemoglobin A1c 07/25/2023 Next Appt Details Provider Name:Harjeet Herman, 06/10/2025 09:00:00 AM, [address] [place] [address] [place], [address], Provider Name:Harjeet Herman, 11/11/2025 09:30:00 AM, [address] [place] [address] [place], [address], Insurance Providers Payer Name Payer Address Payer Phone Subscriber Number Group Number Insured Name Patient Relationship to Insured Coverage Start Date Coverage End Date [place] [employer] [facility] [address] [place], [place] [phone] [id number] DOUGLAS NUNO Self - patient is the insured MEDICARE NGS [address] [place] [address] [phone] [id number] DOUGLAS NUNO Self - patient is the insured Medical (General) History Medical History History ICD Code Asthma, unspecified asthma s everity, unspecified whether complicated, unspecified whether persistent J45.909 shelter current use of insulin Z79.4 Type 2 diabetes mellitus without complic ations E11.9 Hypertension, unspecified type I10 Hyperlipidemia, unspecified hyperlipidem ia type E78.5 Bursitis of left shoulder M75.52 essential tremor calcium oxalate kidney stone 2004 hyperplastic polyps of the rectum 2013 Cooper's palsy obesity, BMI 30 Surgical History Surgery Date(Month/Year) No history history of one tubal colonoscopy, Dr. Landaverde, [facility], negative 2010 cystoscopy, stent insertion left ureter, retro-grade pyelogram 2005 lithotripsy age 50, Dr. Reveles 2005 section x2 Hospitalization History Reason Date(Month/Year) No history
--- OUTSIDE RECORDS SUMMARY | 2025-05-07 15:52 | XMS_ITS | Patient Health Record ---
Author Organization [facility] Address [address] [place] [address] Care Team Providers Care Clamper Name Role Phone Kurt Ojeda Primary Care Provider Harjeet Horowitz Unavailable [phone] Reason For Referral No Information Medications Medication [...] Problem Screening for malignant neoplasm of colon (663061271) Special screening for malignant neoplasms, colon (V76.51) Active confirmed Plan Of Treatment Future Test Test Name Order Date COLONOSCOPY 05/02/2011 Insurance Providers Payer Name Payer Address Payer Phone Subscriber Number Group Number Insured Name Patient Relationship to Insured Coverage Start Date Coverage End Date [facility] [address] [place] [phone] [id number] DOUGLAS NUNO Self - patient is the insured Medical (General) History Medical History History ICD Code DM HTN Hyperlipidemia Asthma Denies [place],CVA,renal disease Kidney stones, treated with ESWL Surgical History Surgery Date(Month/Year) C-sections
== END 2025-05-07 13:19 | disposition home or self-care (01) ==
LOC: HO.MAMMO 13:18
PROVIDERS: PCP Internal Medicine Medical Oncology; Visit Provider Internal Medicine Medical Oncology
DX: Z12.31 Encounter for screening mammogram for malignant neoplasm of breast (principal)
CPT/HCPCS: 77063; 77067

== ENCOUNTER → 2025-05-07 13:30 | Outpatient (BNV) | payer MEDICARE, SELFPAY | PROVIDERS: PCP Internal Medicine Medical Oncology; Visit Provider Internal Medicine | DX: Z12.31 Encounter for screening mammogram for malignant neoplasm of breast (principal) | CPT/HCPCS: 77063; 77067 ==

== ENCOUNTER 2025-05-31 06:25 | Outpatient (REF) | payer MEDICARE, SELFPAY ==
--- OUTSIDE RECORDS SUMMARY | 2024-11-09 05:30 | XMS_ITS ---
Author Organization Harjeet Herman III, MD Address 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 Harjeet Herman III Primary Care Provider Allergies Allergen (clinical drug ingredient) Drug/Non Drug Allergy documented on EMR Reaction Allergy Type Onset Date Status No Known Drug Allergy Unknown Drug Allergy Active Results Component Value Reference Range Notes URINE DIP STICK Reviewed date:11/09/2024 10:43:26 AM Interpretation: Performing Lab: Notes/Report: SG 1.020 1.005 - 1.025 pH 5.0 5.0 - 9.0 ODETTE 70+ Negative - NIT Negative Negative - PRO 15 Negative - Trace GLU Negative Negative - KET Negative Negative - UBG 0.2 0.1 - 1.8 MEENAKSHI 1 0.2 - 1.3 BLD 5-10 Negative - Menstrating No REASON FOR VISIT Annual Exam Medications Medication SIG (Take, Route, Frequency, Duration) Notes Start Date End Date Status BD Pen Needle Arabella U/F 32G X 4 MM Check blood sugar 4 times a day E11.9 Type 2 diabetes mellitus 06/11/2024 Active HumaLOG KwikPen 100 UNIT/ML 20 units Subcutaneous three times daily with meals 08/30/2020 Active Gabapentin 300 MG TAKE 1 CAPSULE BY MOUTH EVERY DAY Active Montelukast Sodium 10 MG TAKE 1 TABLET BY MOUTH EVERY DAY Active Simvastatin 20 MG TAKE 1 TABLET IN THE EVENING ONCE A DAY 90 Active Lantus SoloStar 100 UNIT/ML INJECT 100 UNITS EVERY EVENING SUBCUTANEOUSLY Active metFORMIN HCl 500 MG TAKE 2 TABLETS BY MOUTH TWICE A DAY WITH A MEAL 90 Active Accu-Chek FastClix Lancets - USE 4 TIMES A DAY 90 Active Vitamin D (Ergocalciferol) 1.25 MG (47695 UT) TAKE 1 CAPSULE BY MOUTH ONE TIME PER WEEK Active Irbesartan 150 MG TAKE 1 TABLET BY PRADEEP TH EVERY DAY Active OneTouch Verio - USE TO TEST 3 TIMES A DAY Active Social History Tobacco Use: Social History Observation Description Date Details (start date - stop date) Never Smoker NA - NA Sex Assigned At : Social History Observation Description Sex Assigned At Female Tobacco Control (Standard) Question Answer Notes Tobacco use: Nonsmoker Additional Findings: Tobacco non-user Aggressive nonsmoker AUDIT-C (Standard) Question Answer Notes Did you have a drink containing alcohol in the p ast year? No Points 0 Interpretation Negative Vital Signs Temperature 98.1 degrees Fahrenheit 11/10/19 25 Blood pressure systolic 137 mm Hg 11/10/19 25 Blood pressure diastolic 57 mm Hg 025 Heart Rate 70 /min 11/09/2024 Height 60 in 11/09/2024 Weight 149 lbs 11/09/2024 BMI 29.1 kg/m2 11/09/2024 Encounters Encounter Location Date Provider Diagnosis Harjeet Herman III, MD [address] [place] [address] [facility] [place] [address] 11/09/2024 Harjeet Herman Type 2 diabetes henry itus without complications E11.9 ; Essential hypertension I10 ; Mixed hyperlipidemia E78.2 ; Overweight (BMI 25.0-29.9) E66.3 ; skilled nursing current use of insulin Z79.4 ; Essential tremor G25.0 and Ureterolithiasis N20.1 Assessments Encounter Date Diagnosis (ICD Code) Assessment Notes Treat ment Notes Treatment Clinical Notes 11/09/2024 Type 2 diabetes mellitus without complications (ICD-10 - E11.9) Her hemoglobin A1c has decreased from 8.57to 8.3. We discussed her diabetic diet and her weight reduction strategy. We discussed her nutrition. We made plans to lose weight at a rate of one half of a pound per week. 11/09/2024 Essential hypertensi on (ICD-10 - I10) Her blood pressure is currently stable at 137/57. She has been compliant with her medications. I recommended aggressive weight loss sodium restriction but made no change in her medical regimen. 11/09/2024 Mixed hyperlipidemia (ICD-10 - E78.2) Her lipids are currently stable and no change in her regimen was necessary today. 11/09/2024 Overweight (BMI 25.0-29.9) (ICD-10 - E66.3) Despite the 2 cruises she has lost 3 pounds. She reports an excellent appetite. Is avoiding unhealthy eating. 11/09/2024 skilled nursing current us e of insulin (ICD-10 - Z79.4) She understands how to use the insulin and to test urine. She has no difficulty with injections. 11/09/2024 Essential tremor (ICD-10 - G25.0) The tremor was not present today. She has had no difficulty conducting activities of daily life. 11/09/2024 Ureterolithiasis (ICD-10 - N20.1) She has had no renal colic or kidney stone since her last visit. Plan Of Treatment Medication Medication Name Sig Start Date Stop Date Notes BD Pen Needle Arabella U/F 32G X 4 MM Check blood sugar 4 times a day 06/11/2024 E11.9 Type 2 diabetes mellitus HumaLOG KwikPen 100 UNIT/ML 20 units Subcutaneous three times daily with meals 08/30/2020 Gabapentin 300 MG TAKE 1 CAPSULE BY MO UTH EVERY DAY Montelukast Sodium 10 MG TAKE 1 TABLET BY MOUTH EVERY DAY Simvastatin 20 MG TAKE 1 TABLET IN THE EVENING ONCE A DAY 90 Lantus SoloStar 100 UNIT/ML INJECT 100 UNITS EVERY EVENING SUBCUTANEOUSLY metFORMIN HCl 500 MG TAKE 2 TABLETS BY M OUTH TWICE A DAY WITH A MEAL 90 Accu-Chek FastClix Lancets - USE 4 TIMES A DAY 90 Vitamin D (Ergocalciferol) 1.25 MG (96791 UT) TAKE 1 CAPSULE BY MOUTH ONE TIME PER WEEK Irbesartan 150 MG TAKE 1 TABLET BY PRADEEP TH EVERY DAY OneTouch Verio - USE TO TEST 3 TIMES A DAY Pending Test Test Name Order Date PROFILE, FASTING (COMPREHENSIVE METABOLI C) 11/09/2024 CBC w DIFF 11/09/2024 Lipid Panel 11/09/2024 Microalbumin, Random 11/09/2024 Hemoglobin A1c 11/09/2024 Next Appt Details Follow Up: 4 Months, Reason: OV Provider Name:Harjeet Herman , 06/10/2025 09:00:00 AM, [address] [place] [address] DR, [place], [phone], Provider Name:Harjeet Herman , 11/11/2025 09:30:00 AM, [address] [place] [address] [place], [phone], Progress Notes * DOUGLAS NUNODOB: [birth year] (69 yo F)Acc No.[id number]:11/09/2024 Progress Notes Patient: DOUGLAS SMITH Provider: Belén Herman MD :1955 A ge:69 Y S ex:Female Date:11/09/2024 Address:[address] [place], [place] [id number] Subjective: * Chief Complaints: * A nnual Exam * HPI: D epression Screening: She reeturns to the office for her annual physical examination at the age of 69. He says she has been compliant with all of her medications.She and her have recently been on Andela.His lost 3 pounds since her last visit. She complains of a left upper quadrant abdominal pain relieved by a bowel movement. She has not had a colonoscopy quite a while having had a Cologard recently.Examination was unremarkable. Her vital signs are stable. She remains overweight. Her blood work was reviewed with her in detail. PHQ-9 L ittle interest or pleasure in doing things?Not at all F eeling down, depressed, or hopeless N ot at all T rouble falling or staying asleep, or sleeping too much N ot at all F eeling tired or having little energy S everal days P oor appetite or overeating N ot at all F eeling bad about yourself or that you are a failure, or have let yourself or your family down N ot at all T rouble concentrating on things, such as reading the newspaper or watching television N ot at all M oving or speaking so slowly that other people could have noticed; or the opposite, being so fidgety or restless that you have been moving around a lot more than usual N ot at all T houghts that you would be better off or of hurting yourself in some way N ot at all T otal Score 1 I nterpretation M inimal Depression C OVID-19 Screening: Questions H ave you had any new onset fever, chills, cough, congestion, sore throat, shortness of breath, muscle aches? N o F all Risk Screening: Fall History H ave you had any falls with injury in the past year? N o H ave you had two or more falls in the past year? N o F all Risk Assessment: N o falls in the past year S ROB Questions: SDOH Questions I n the past year have you been worried about losing your housing? N o I n the past year have you or any family members you live with been unable to get any of the following when it was really needed? Check all that apply: N one * ROS: G eneral/Constitutional: pain o nly normal aches and pains. C hills d enies.?Fatigue a dmits. F ever d enies. E NT: Decreased hearing m ild. R espiratory: Cough d enies. C ardiovascular: Chest pain with exertion d enies. D yspnea on exertion?denies. S hortness of breath d enies. G astrointestinal: Constipation o ccasional. D ecreased appetite d enies. D iarrhea d enies. H eartburn d enies. N ausea d enies. R ectal bleeding d enies. V omiting d enies. H ematology: bruising d enies. p etechiae d enies. S wollen glands n one have been noted. G enitourinary: Frequent urination a t night. M usculoskeletal: Muscle aches d enies. P ainful joints d enies. S ciatica d enies. W eakness d enies. S kin: Itching d enies. R mariely d enies. S kin lesion(s)?denies. N eurologic: Difficulty speaking d enies. D izziness d enies.?Headache d enies. L ow back pain d enies. P sychiatric: Depressed mood d enies. * Medical History: * Surgical History: c esarean section x2 lithotripsy age 50, Dr. Reveles 2005cystoscopy, stent insertion left ureter, retro-grade pyelogram 2005colonoscopy, Dr. Landaverde, [facility], negative 2011history of one tubal No history * Hospitalization/Major Diagno stic Procedure: N o history * Family History: F ather: 25 yrs, auto accident. M other: alive 79 yrs, hypertension, breast cancer at age 56, diagnosed with HTN, Cancer. P aternal Grand Mother: diagnosed with CVD, HTN. 3 brother(s) - healthy. 1 son(s) , 1 daughter(s) - healthy. . A maternal grandmother had hypertension and heart disease. Her children are healthy and well. There is no history of hereditary malignancy. She is not aware of any family history of mental illness or substance use disorder or injection. * Social History: T obacco Use: T obacco Control (Standard) T obacco use: N onsmoker A dditional Findings: Tobacco non-user A ggressive nonsmoker D rugs/Alcohol: D rugs H ave you used drugs other than those for medical reasons in the past 12 months? N o D rug/Alcohol: A ARMIN-C (Standard) D id you have a drink containing alcohol in the past year? N o P oints 0 I nterpretation N egative S he and her ,Angelo, were both born in [place]. She works in a [employer]. She has a son Sai and a daughter Jaja and 3 grandchildren. * Medications: T akingIrbesartan 150 MG Tablet TAKE 1 TABLET BY MOUTH EVERY DAY Simvastatin 20 MG Tablet TAKE 1 TABLET IN THE EVENING ONCE A DAY 90 Gabapentin 300 MG Capsule TAKE 1 CAPSULE BY MOUTH EVERY DAY Montelukast Sodium 10 MG Tablet TAKE 1 TABLET BY MOUTH EVERY DAY HumaLOG KwikPen 100 UNIT/ML Solution Pen-injector 20 units Subcutaneous three times daily with meals BD Pen Needle Arabella U/F 32G X 4 MM Miscellaneous Check blood sugar 4 times a day , Notes to Pharmacist: E11.9 Type 2 diabetes mellitusmetFORMIN HCl 500 MG Tablet TAKE 2 TABLETS BY MOUTH TWICE A DAY WITH A MEAL 90 Lantus SoloStar 100 UNIT/ML Solution Pen-injector INJECT 100 UNITS EVERY EVENING SUBCUTANEOUSLY Vitamin D (Ergocalciferol) 1.25 MG (59697 UT) Capsule TAKE 1 CAPSULE BY MOUTH ONE TIME PER WEEK Accu-Chek FastClix Lancets - Miscellaneous USE 4 TIMES A DAY 90 OneTouch Verio - Strip USE TO TEST 3 TIMES A DAY Medication List reviewed and reconciled with the patientTaking Irbesartan 150 MG Tablet TAKE 1 TABLET BY MOUTH EVERY DAY Taking Simvastatin 20 MG Tablet TAKE 1 TABLET IN THE EVENING ONCE A DAY 90 Taking Gabapentin 300 MG Capsule TAKE 1 CAPSULE BY MOUTH EVERY DAY Taking Montelukast Sodium 10 MG Tablet TAKE 1 TABLET BY MOUTH EVERY DAY Taking HumaLOG KwikPen 100 UNIT/ML Solution Pen-injector 20 units Subcutaneous three times daily with meals Taking BD Pen Needle Arabella U/F 32G X 4 MM Miscellaneous Check blood sugar 4 times a day , Notes to Pharmacist: E11.9 Type 2 diabetes mellitusTaking metFORMIN HCl 500 MG Tablet TAKE 2 TABLETS BY MOUTH TWICE A DAY WITH A MEAL 90 Taking Lantus SoloStar 100 UNIT/ML Solution Pen-injector INJECT 100 UNITS EVERY EVENING SUBCUTANEOUSLY Taking Vitamin D (Ergocalciferol) 1.25 MG (45523 UT) Capsule TAKE 1 CAPSULE BY MOUTH ONE TIME PER WEEK Taking Accu-Chek FastClix Lancets - Miscellaneous USE 4 TIMES A DAY 90 Taking OneTouch Verio - Strip USE TO TEST 3 TIMES A DAY Medication List reviewed and reconciled with the patient * Allergies: N o Known Drug Allergyno[Allergies Verified] Objective: * Vitals: H t: 60, Wt:149, BMI:29.1, BP:137/57, HR:70, Temp:98.1, Wt-k.59. * P ast Orders: Lab:Complete Blood Count Aut o Diff * Collection Date 11/03/2024 06/05/2024 02/28/2024 Collection Time 06:30 AM 08:13 AM 06:34 AM Order Date 11/03/2024 06/05/2024 02/28/2024 White Blood Count 7.8 (Ref Range: 4.8-10.8 X10*3/uL) 6.7 (Ref Range: 4.8-10.8 X10*3/uL) 7.9 (Ref Range: 4.8-10.8 X10*3/uL) Red Blood Count 4.10 L (Ref Range: 4.20-5.50 X10*6/uL) 3.87 L (Ref Range: 4.20-5.50 X10*6/uL) 4.07 L (Ref Range: 4.20-5.50 X10*6/uL) Hemoglobin 13.3 (Ref Range: 12.0-16.0 g/dl) 12.5 (Ref Range: 12.0-16.0 g/dl) 13.2 (Ref Range: 12.0-16.0 g/dl) Hematocrit 39.4 (Ref Range: 37.0-47.0 %) 37.5 (Ref Range: 37.0-47.0 %) 39.3 (Ref Range: 37.0-47.0 %) Mean Corpuscular Volume 96.1 (Ref Range: 80.0-98.0 fL) 96.9 (Ref Range: 80.0-98.0 fL) 96.6 (Ref Range: 80.0-98.0 fL) Mean Corpuscular Hemoglobin 32.4 (Ref Range: 27.0-33.0 pg) 32.3 (Ref Range: 27.0-33.0 pg) 32.4 (Ref Range: 27.0-33.0 pg) Mean Corpuscular HGB Conc 33.8 (Ref Range: 31.0-35.0 g/dl) 33.3 (Ref Range: 31.0-35.0 g/dl) 33.6 (Ref Range: 31.0-35.0 g/dl) Red Cell Distribution Width 12.8 (Ref Range: 11.0-16.0 %) 13.1 (Ref Range: 11.0-16.0 %) 13.0 (Ref Range: 11.0-16.0 %) Platelet Count 201 (Ref Range: 160-400 X10*3/uL) 164 (Ref Range: 160-400 X10*3/uL) 189 (Ref Range: 160-400 X10*3/uL) Mean Platelet Volume 11.4 (Ref Range: 9.4-12.3 fL) 11.2 (Ref Range: 9.4-12.3 fL) 11.7 (Ref Range: 9.4-12.3 fL) Neutrophils Percent Auto 46.9 (Ref Range: 45-73 %) 53.2 (Ref Range: 45-73 %) 49.7 (Ref Range: 45-73 %) Imm Gran Pct Auto 0.4 (Ref Range: 0.0-0.4 %) 0.5 H (Ref Range: 0.0-0.4 %) 0.4 (Ref Range: 0.0-0.4 %) Lymphocytes Percent Auto 33.1 (Ref Range: 20-40 %) 29.0 (Ref Range: 20-40 %) 36.3 (Ref Range: 20-40 %) Monocytes Percent Auto 11.1 H (Ref Range: 2-11 %) 11.1 H (Ref Range: 2-11 %) 10.4 (Ref Range: 2-11 %) Eosinophils Percent Auto 8.1 H (Ref Range: 0-4 %) 5.7 H (Ref Range: 0-4 %) 2.9 (Ref Range: 0-4 %) Basophils Percent Auto 0.4 (Ref Range: 0-2 %) 0.5 (Ref Range: 0-2 %) 0.3 (Ref Range: 0-2 %) NRBC Pct Auto 0.0 (Ref Range: 0.0-0.2 /100WBC) 0.0 (Ref Range: 0.0-0.2 /100WBC) 0.0 (Ref Range: 0.0-0.2 /100WBC) Neutrophils Absolute Auto 3.7 (Ref Range: 2.0-8.3 x10*3/uL) 3.6 (Ref Range: 2.0-8.3 x10*3/uL) 3.9 (Ref Range: 2.0-8.3 x10*3/uL) Imm Gran Abs Auto 0.03 (Ref Range: 0.00-0.03 X10*3/uL) 0.03 (Ref Range: 0.00-0.03 X10*3/uL) 0.03 (Ref Range: 0.00-0.03 X10*3/uL) Lymphocytes Absolute Auto 2.6 (Ref Range: 1.2-4.9 X10*3/uL) 1.9 (Ref Range: 1.2-4.9 X10*3/uL) 2.9 (Ref Range: 1.2-4.9 X10*3/uL) Monocytes Absolute Auto 0.9 (Ref Range: 0.1-1.2 X10*3/uL) 0.7 (Ref Range: 0.1-1.2 X10*3/uL) 0.8 (Ref Range: 0.1-1.2 X10*3/uL) Eosinophils Absolute Auto 0.6 H (Ref Range: 0.0-0.4 X10*3/uL) 0.4 (Ref Range: 0.0-0.4 X10*3/uL) 0.2 (Ref Range: 0.0-0.4 X10*3/uL) Basophils Absolute Auto 0.0 (Ref Range: 0.0-0.2 X10*3/uL) 0.0 (Ref Range: 0.0-0.2 X10*3/uL) 0.0 (Ref Range: 0.0-0.2 X10*3/uL) NRBC Abs Auto 0.000 (Ref Range: 0.0-0.012 X10*3/uL) 0.000 (Ref Range: 0.0-0.012 X10*3/uL) 0.000 (Ref Range: 0.0-0.012 X10*3/uL) * Lab:[facility] * Collection Date 11/03/2024 06/05/2024 02/28/2024 Collection Time 06:30 AM 08:13 AM 06:34 AM Order Date 11/03/2024 06/05/2024 02/28/2024 Sodium 141 (Ref Range: 135-145 mmol/L) 142 (Ref Range: 135-145 mmol/L) 140 (Ref Range: 135-145 mmol/L) Bilirubin Total 0.8 (Ref Range: 0.0-1.0 mg/dL) 0.5 (Ref Range: 0.0-1.0 mg/dL) 0.7 (Ref Range: 0.0-1.0 mg/dL) Aspartate Amino Transferase 41 H (Ref Range: 5-31 U/L) 33 H (Ref Range: 5-31 U/L) 46 H (Ref Range: 5-31 U/L) Alanine Aminotransferase 45 H (Ref Range: 0-31 U/L) 40 H (Ref Range: 0-31 U/L) 55 H (Ref Range: 0-31 U/L) Total Protein 7.2 (Ref Range: 6.5-8.0 g/dL) 6.4 L (Ref Range: 6.5-8.0 g/dL) 6.7 (Ref Range: 6.5-8.0 g/dL) Albumin Level 4.1 (Ref Range: 3.5-5.0 g/dL) 3.9 (Ref Range: 3.5-5.0 g/dL) 4.1 (Ref Range: 3.5-5.0 g/dL) Alkaline Phosphatase 78 (Ref Range: 39-117 U/L) 83 (Ref Range: 39-117 U/L) 77 (Ref Range: 39-117 U/L) Potassium 4.2 (Ref Range: 3.3-5.1 mmol/L) 3.9 (Ref Range: 3.3-5.1 mmol/L) 3.8 (Ref Range: 3.3-5.1 mmol/L) Chloride 108 (Ref Range: 96-108 mmol/L) 107 (Ref Range: 96-108 mmol/L) 108 (Ref Range: 96-108 mmol/L) Carbon Dioxide 25 (Ref Range: 22-29 mmol/L) 27 (Ref Range: 22-29 mmol/L) 23 (Ref Range: 22-29 mmol/L) Anion Gap 12 (Ref Range: 12-20) 12 (Ref Range: 12-20) 13 (Ref Range: 12-20) Blood Urea Nitrogen 17 H (Ref Range: 9-16 mg/dL) 11 (Ref Range: 9-16 mg/dL) 17 H (Ref Range: 9-16 mg/dL) Creatinine 0.84 (Ref Range: 0.5-1.4 mg/dL) 0.77 (Ref Range: 0.5-1.4 mg/dL) 0.80 (Ref Range: 0.5-1.4 mg/dL) Estimated Glomerular Filt Rate > 60 > 60 > 60 Glucose Fasting 118 H (Ref Range: 60-99 mg/dL) 98 (Ref Range: 60-99 mg/dL) 86 (Ref Range: 60-99 mg/dL) Calcium 9.0 (Ref Range: 8.4-10.2 mg/dL) 9.2 (Ref Range: 8.4-10.2 mg/dL) 9.2 (Ref Range: 8.4-10.2 mg/dL) * Lab:Lipid Panel * Collection Date 11/03/2024 06/05/2024 02/28/2024 Collection Time 06:30 AM 08:13 AM 06:34 AM Order Date 11/03/2024 06/05/2024 02/28/2024 Triglycerides 126 (Ref Range: <150 mg/dL) 182 H (Ref Range: <150 mg/dL) 217 H (Ref Range: <150 mg/dL) Cholesterol 117 (Ref Range: <200 mg/dL) 134 (Ref Range: <200 mg/dL) 119 (Ref Range: <200 mg/dL) LDL Cholesterol Calculated 51 (Ref Range: <100 mg/dL) 54 (Ref Range: <100 mg/dL) 38 (Ref Range: <100 mg/dL) HDL Cholesterol 41 (Ref Range: >40 mg/dL) 44 (Ref Range: >40 mg/dL) 38 L (Ref Range: >40 mg/dL) * Lab:Microalbumin, Random * Collection Date 11/03/2024 06/05/2024 02/28/2024 Collection Time 06:30 AM 08:13 AM 06:34 AM Order Date 11/03/2024 06/05/2024 02/28/2024 Creatinine Urine 74.69 (Ref Range: mg/dL) 102.31 (Ref Range: mg/dL) 139.35 (Ref Range: mg/dL) Microalbumin Urine 7.0 (Ref Range: mg/L) 27.0 (Ref Range: mg/L) 18.0 (Ref Range: mg/L) Microalbum Creatinine Ratio Ur 9.3 (Ref Range: <30 ug/mg cr) 26.3 (Ref Range: <30 ug/mg cr) 12.9 (Ref Range: <30 ug/mg cr) * Lab:Hemoglobin A1c * Collection Date 11/03/2024 06/05/2024 02/28/2024 Collection Time 06:30 AM 08:13 AM 06:34 AM Order Date 11/03/2024 06/05/2024 02/28/2024 Hemoglobin A1c % 8.3 H (Ref Range: <6.0 %) 8.7 H (Ref Range: <6.0 %) 8.5 H (Ref Range: <6.0 %) Estimated Average Glucose 192 (Ref Range: mg/dL) 203 (Ref Range: mg/dL) 197 (Ref Range: mg/dL) * Examination: G eneral Examination: GENERAL APPEARANCE: p venecia, well nourished, well developed, in no acute distress, calm and relaxed, overweight, woman. HEAD: a traumatic, normocephalic. EYES: e juan, perrla, anicteric, conjugate. EARS: n ormal. NOSE: s eptum intact. ORAL CAVITY: n ormal, unremarkable. NECK/THYROID: n o jugular venous distention, no carotid bruit, thyroid normal. LYMPH NODES: n o enlarged lymph nodes,spleen normal. SKIN: n o suspicious lesions, anicteric. HEART: n o clicks, gallops, murmurs, or rubs, regular rhythm, S1, S2 normal, no s3, or vascular bruits. LUNGS: c lear to auscultation . BREASTS: S he declined the breast examination when offered.? ABDOMEN: b owel sounds normal, no ascites, no organomegaly, no mass, overweight, No abnormal findings in the left upper quadrant to palpation or auscultation. RECTAL EXAM: P refers PARTS BACK COUNTER MAN. MUSCULOSKELETAL: e xtremities unremarkable, no clubbing, cyanosis or edema. PERIPHERAL PULSES: n ormal. NEUROLOGIC: a lert and oriented, cranial nerves 2-12 grossly intact, deep tendon reflexes 2+ symmetrical, motor strength normal upper and lower extremities, sensory exam intact. PSYCH: a lert, oriented. Assessment: * Assessment: 1. T ype 2 diabetes mellitus without complications - E11.9 (Primary) N otes :Her hemoglobin A1c has decreased from 8.57to 8.3. We discussed her diabetic diet and her weight reduction strategy. We discussed her nutrition. We made plans to lose weight at a rate of one half of a pound per week. 2 . E ssential hypertension - I10 N otes :Her blood pressure is currently stable at 137/57. She has been compliant with her medications. I recommended aggressive weight loss sodium restriction but made no change in her medical regimen. 3 . M ixed hyperlipidemia - E78.2 N otes :Her lipids are currently stable and no change in her regimen was necessary today. 4 . O verweight (BMI 25.0-29.9) - E66.3 N otes :Despite the 2 cruises she has lost 3 pounds. She reports an excellent appetite. Is avoiding unhealthy eating. 5 . L reyna term current use of insulin - Z79.4 N otes :She understands how to use the insulin and to test urine. She has no difficulty with injections. 6 . E ssential tremor - G25.0 N otes :The tremor was not present today. She has had no difficulty conducting activities of daily life. 7 . U reterolithiasis - N20.1 N otes :She has had no renal colic or kidney stone since her last visit. Plan: * Treatment: 2. E ssential hypertension L AB: PROFILE, FASTING (COMPREHENSIVE METABOLIC) L AB: CBC w DIFF L AB: Lipid Panel L AB: Microalbumin, Random L AB: Hemoglobin A1c 3. M ixed hyperlipidemia L AB: PROFILE, FASTING (COMPREHENSIVE METABOLIC) L AB: CBC w DIFF L AB: Lipid Panel L AB: Microalbumin, Random L AB: Hemoglobin A1c 4. O verweight (BMI 25.0-29.9) L AB: PROFILE, FASTING (COMPREHENSIVE METABOLIC) L AB: CBC w DIFF L AB: Lipid Panel L AB: Microalbumin, Random L AB: Hemoglobin A1c 5. O thers Continue OneTouch Verio Strip, -, USE TO TEST 3 TIMES A DAY; C ontinue Accu-Chek FastClix Lancets Miscellaneous, -, USE 4 TIMES A DAY 90; C ontinue Vitamin D (Ergocalciferol) Capsule, 1.25 MG (00144 UT), TAKE 1 CAPSULE BY MOUTH ONE TIME PER WEEK; C ontinue Lantus SoloStar Solution Pen-injector, 100 UNIT/ML, INJECT 100 UNITS EVERY EVENING SUBCUTANEOUSLY; C ontinue metFORMIN HCl Tablet, 500 MG, TAKE 2 TABLETS BY MOUTH TWICE A DAY WITH A MEAL 90; C ontinue Irbesartan Tablet, 150 MG, TAKE 1 TABLET BY MOUTH EVERY DAY; C ontinue Simvastatin Tablet, 20 MG, TAKE 1 TABLET IN THE EVENING ONCE A DAY 90; C ontinue Gabapentin Capsule, 300 MG, TAKE 1 CAPSULE BY MOUTH EVERY DAY; C ontinue Montelukast Sodium Tablet, 10 MG, TAKE 1 TABLET BY MOUTH EVERY DAY. * Labs: * L ab: URINE DIP STICK (Collection Date & Time - 11/09/2024) Value Reference Range S G 1.020 1.005 - 1.025 * p H 5.0 5.0 - 9.0 * L EU 70+ Negative - * N IT Negative Negative - * P RO 15 Negative - Trace * G DALJIT Negative Negative - * K ET Negative Negative - * U BG 0.2 0.1 - 1.8 * B IL 1 0.2 - 1.3 * B LD 5-10 Negative - * M enstrating No * Procedure Codes: 8 1002 URINE-NO MICRO * Preventive Medicine: Counseling: C are goal follow-up plan: Counseling for abnormal BMI given Y es Above Normal BMI Follow-up D ietary needs education, Exercise promotion: strength training, Exercise promotion: stretching DM Care Plan: P atient Lifestyle Goals P atient wants to be able to manage diabetes without too much effort. T reatment Goals H bA1C < 7.0, Blood Sugars less than < 115. B arriers n o barriers. S elf-Managment Goals W ork on weight loss, with a goal of losing 1 lb per week. * Follow Up: 4 Months (Reason: OV) * Images: * Sign off status: Completed true * Provider: Belén Herman MD Date: 0 11/09/2024 Generated for Evgeny jones/Bernabe/Octavioitting on: 06:27 AM EDT History and Physical Notes * HPI (History of Present Illness) Category Sub-Category Detail Notes Depression Screening PHQ-9 Little inte rest or pleasure in doing things: Not at all Feeling down, depressed, or hopeless: No t at all Trouble falling or staying asleep, or sl eeping too much: Not at all Feeling tired or having little energy: S everal days Poor appetite or overeating: Not at all Feeling bad about yourself o r that you are a failure, or have let yourself or your family down: Not at all Trouble concentrating on thi ngs, such as reading the newspaper or watching television: Not at all Moving or speaking so slowly that other people could have noticed; or the opposite, being so fidgety or restless that you have been moving around a lot more than usual: Not at all Thoughts that you would be b fred off or of hurting yourself in some way: Not at all Total Score: 1 Interpretation: Minimal Depression Fall Risk Screening Fall History Have you had any falls with injury in the past year?: No Have you had two or more falls in the year?: No Fall Risk Assessment:: No falls in the p year COVID-19 Screening Questions Have you had any new onset fever, chills, cough, congestion, sore throat, shortness of breath, muscle aches?: No SDOH Questions SDOH Questions In the past year have you been worried about losing your housing?: No In the past year have you or any family members you live with been unable to get any of the following when it was really needed? Check all that apply:: None Examination Category Sub-Category Detail Notes General Examination [...] normal, no ascites, no organomegaly, no mass, overweight, No abnormal findings in the left upper quadrant to palpation or auscultation NEUROLOGIC: alert and oriented, cranial nerves 2-12 grossly intact, deep tendon reflexes 2+ symmetrical, motor strength normal upper and lower extremities, sensory exam intact SKIN: no suspicious lesion s, anicteric PERIPHERAL PULSES: normal BREASTS: She declined the maikol ast examination when offered MUSCULOSKELETAL: extremities unremark able, no clubbing, cyanosis or edema LYMPH NODES: no enlarged lymph no eric,spleen normal RECTAL EXAM: Prefers PARTS BACK COUNTER MAN PSYCH: alert, oriented ORAL CAVITY: normal, unremarkable
--- OUTSIDE RECORDS SUMMARY | 2024-12-25 09:52 | XMS_ITS ---
Author Organization Harjeet Herman III, MD Address [address] [place] [address] Care Team Providers Care Completion Engineer Name Role Phone Dr. Harjeet Herman III Primary Care Provider [phone] Medications Medication SIG (Take, Route, Frequency, Duration) Notes Start Date End Date Status BD Pen Needle Arabella U/F 32G X 4 MM Check blood sugar 4 times a day E11.9 Type 2 diabetes mellitus 06/11/2024 Unknown Gabapentin 300 MG TAKE 1 CAPSULE BY MOUTH EVERY DAY Unknown HumaLOG KwikPen 100 UNIT/ML 20 units Subcutaneous three times daily with meals 08/30/2020 Unknown Montelukast Sodium 10 MG TAKE 1 TABLET BY MOUTH EVERY DAY Unknown Simvastatin 20 MG TAKE 1 TABLET IN THE EVENING ONCE A DAY 90 Unknown Vitamin D (Ergocalciferol) 1.25 MG (11898 UT) TAKE 1 CAPSULE BY MOUTH ONE TIME PER WEEK Unknown Accu-Chek FastClix Lancets - USE 4 TIMES A DAY 90 Unknown metFORMIN HCl 500 MG TAKE 2 TABLETS BY MOUTH TWICE A DAY WITH A MEAL 90 Unknown Lantus SoloStar 100 UNIT/ML INJECT 100 UNITS EVERY EVENING SUBCUTANEOUSLY Unknown Irbesartan 150 MG TAKE 1 TABLET BY PRADEEP TH EVERY DAY Unknown OneTouch Verio - USE TO TEST 3 TIMES A DAY Unknown Social History Sex Assigned At : Social History Observation Description Sex Assigned At Female Encounters Encounter Location Date Provider Diagnosis Harjeet Herman III, MD [address] [place] [address] [place] [address] 12/25/2024 Harjeet Herman Plan Of Treatment Next Appt Details Provider Name:Harjeet Herman 06/10/2025 09:00:00 AM, [address] [facility] [address], [place], [address], Provider Name:Harjeet Herman , 11/11/2025 09:30:00 AM, [address] [place] [address] [address], [place], [address], Progress Notes * DOUGLAS NUNODOB: [birth year] (69 yo F)Acc No.[id number]:12/25/2024 Patient: SORAYA SMITHYNE :1955 A ge:69 Y S ex:Female Address:[address] [place] [address] [place], [address] Subjective: * Chief Complaints: * * Medical History: * Surgical History: * Hospitalization/Major Diagno stic Procedure: * Medications: U nknownOneTouch Verio - Strip USE TO TEST 3 TIMES A DAY Accu-Chek FastClix Lancets - Miscellaneous USE 4 TIMES A DAY 90 Vitamin D (Ergocalciferol) 1.25 MG (77764 UT) Capsule TAKE 1 CAPSULE BY MOUTH ONE TIME PER WEEK Lantus SoloStar 100 UNIT/ML Solution Pen-injector INJECT 100 UNITS EVERY EVENING SUBCUTANEOUSLY metFORMIN HCl 500 MG Tablet TAKE 2 [...] Notes to Pharmacist: E11.9 Type 2 diabetes mellitusUnknown OneTouch Verio - Strip USE TO TEST 3 TIMES A DAY Unknown Accu-Chek FastClix Lancets - Miscellaneous USE 4 TIMES A DAY 90 Unknown Vitamin D (Ergocalciferol) 1.25 MG (75466 UT) Capsule TAKE 1 CAPSULE BY MOUTH ONE TIME PER WEEK Unknown Lantus SoloStar 100 UNIT/ML Solution Pen- injector INJECT 100 UNITS EVERY EVENING SUBCUTANEOUSLY Unknown metFORMIN HCl 500 MG Tablet TAKE 2 TABLETS BY MOUTH TWICE A DAY WITH A MEAL 90 Unknown Irbesartan 150 MG Tablet TAKE 1 TABLET BY MOUTH EVERY DAY Unknown Simvastatin 20 MG Tablet TAKE 1 TABLET IN THE EVENING ONCE A DAY 90 Unknown Gabapentin 300 MG Capsule TAKE 1 CAPSULE BY MOUTH EVERY DAY Unknown Montelukast Sodium 10 MG Tablet TAKE 1 TABLET BY MOUTH EVERY DAY Unknown HumaLOG KwikPen 100 UNIT/ML Solution Pen-injector 20 units Subcutaneous three times daily with meals Unknown BD Pen Needle Arabella U/F 32G X 4 MM Miscellaneous Check blood sugar 4 times a day , Notes to Pharmacist: E11.9 Type 2 diabetes mellitus Objective: * Vitals: * Physical Examination: Assessment: Plan: * Treatment: * Procedure Codes: * true * Date: Generated for Evgeny jones/Bernabe/Calvin on: 06:27 AM EDT
--- OUTSIDE RECORDS SUMMARY | 2024-12-25 09:56 | XMS_ITS ---
Author Organization Harjeet Herman III, MD Address [address] [place] [address] [place] [address] Care Team Providers Care Factory Hand Name Role Phone Dr. Harjeet Herman III Primary Care Provider REASON FOR VISIT Rx ? Medications Medication SIG (Take, Route, Frequency, Duration) Notes Start Date End Date Status NovoLOG FlexPen 100 UNIT/ML 15 units Subcutaneous 3 times a day with meals for 90 days As needed E11.9 Type 2 Diabetes 12/25/2024 Active Social History Sex Assigned At : Social History Observation Description Sex Assigned At Female Encounters Encounter Location Date Provider Diagnosis Harjeet Herman III, MD [address] [place] [address] [place] [address] 12/25/2024 Harjeet Herman Type 2 diabetes mellitus without complications E11.9 Assessments Encounter Date Diagnosis (ICD Code) Assessment Notes Treat ment Notes Treatment Clinical Notes 12/25/2024 Type 2 diabetes mellitus without complications (ICD-10 - E11.9) Plan Of Treatment Medication Medication Name Sig Start Date Stop Date Notes NovoLOG FlexPen 100 UNIT/ML 15 units Subcutaneous 3 times a day with meals for 90 days 12/25/2024 E11.9 Type 2 Diabetes HumaLOG KwikPen 100 UNIT/ML 20 units Subcutaneous three times daily with meals 08/30/2020 Next Appt Details Provider Name:Harjeet Herman , 06/10/2025 09:00:00 AM, [address] [place] [address] [place], [address], Provider Name:Harjeet Herman , 11/11/2025 09:30:00 AM, [address] [place] [address] [address], [place], [address], Progress Notes * EDY NUNOAURELIODOB: [birth year] (69 yo F)Acc No.[id number]:12/25/2024 Patient: DOUGLAS SMITH :1955 A ge:69 Y S ex:Female Address:[address] [place] [address], [place], [address] * Refills Stop HumaLOG KwikPen Solution Pen-injector, 100 UNIT/ML, Subcutaneous, 20 units, three times daily with meals Start NovoLOG FlexPen Solution Pen-injector, 100 UNIT/ML, Subcutaneous, 45 Unspecified, 15 units, 3 times a day with meals, 90 days, Refills=3 * true * Date: Generated for Evgeny jones/Bernabe/Octavioitting on: 1 06:27 AM EDT
--- OUTSIDE RECORDS SUMMARY | 2025-03-11 05:30 | XMS_ITS ---
Author Organization Harjeet Herman III, MD Address [address] [place] [address] Care Team Providers Care Early Childhood Services Coordinator Name Role Phone Dr. Harjeet Herman III Primary Care Provider Allergies Allergen (clinical drug ingredient) Drug/Non Drug Allergy documented on EMR Reaction Allergy Type Onset Date Status insulin glargine Basaglar KwikPen Unknown Drug Allergy Active REASON FOR VISIT Right leg edema, Right knee popliteal pain, Diabetes. Since, Hypertension, Hyperlipidemia Medications Medication SIG (Take, Route, Frequency, Duration) Notes Start Date End Date Status BD Pen Needle Arabella U/F 32G X 4 MM Check blood sugar 4 times a day E11.9 Type 2 diabetes mellitus 06/11/2024 Active Vitamin D (Ergocalciferol) 1.25 MG (61763 UT) TAKE 1 CAPSULE BY MOUTH ONE TIME PER WEEK Active Lantus SoloStar 100 UNIT/ML INJECT 100 UNITS EVERY EVENING SUBCUTANEOUSLY Active metFORMIN HCl 500 MG TAKE 2 TABLETS BY MOUTH TWICE A DAY WITH A MEAL 90 Active Irbesartan 150 MG TAKE 1 TABLET BY PRADEEP TH EVERY DAY Active Gabapentin 300 MG TAKE 1 CAPSULE BY MOUTH EVERY DAY Active Montelukast Sodium 10 MG TAKE 1 TABLET BY MOUTH EVERY DAY Active NovoLOG FlexPen 100 UNIT/ML 15 units Subcutaneous 3 times a day with meals As needed E11.9 Type 2 Diabetes 12/25/2024 Active OneTouch Verio - USE TO TEST 3 TIMES A DAY Active Accu-Chek FastClix Lancets - USE 4 TIMES A DAY 90 Active Simvastatin 20 MG 1 tablet Orally Once a day Active Lantus SoloStar 100 UNIT/ML 75 units Subcutaneous twice a day for 28 days 03/12/2025 Active Social History Tobacco Use: Social History Observation Description Date Details (start date - stop date) Never Smoker NA - NA Sex Assigned At : Social History Observation Description Sex Assigned At Female Tobacco Control (Standard) Question Answer Notes Tobacco use: Nonsmoker Additional Findings: Tobacco non-user Aggressive nonsmoker Vital Signs Temperature 97.3 degrees Fahrenheit 03/11/20 25 Blood pressure systolic 132 mm Hg 03/11/20 25 Blood pressure diastolic 62 mm Hg 025 Heart Rate 78 /min 03/11/2025 Height 60 in 03/11/2025 Weight 148 lbs 03/11/2025 BMI 28.9 kg/m2 03/11/2025 Encounters Encounter Location Date Provider Diagnosis Harjeet Herman III, MD [address] [place] [address] [place] [address] 03/11/2025 Harjeet Herman Type 2 diabetes henry itus without complications E11.9 ; Popliteal pain M79.609 ; Essential hypertension I10 ; Overweight (BMI 25.0-29.9) E66.3 ; Encounter for screening mammogram for malignant neoplasm of breast Z12.31 ; Essential tremor G25.0 ; Ureterolithiasis N20.1 ; Mixed hyperlipidemia E78.2 and 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 Once again, I made the point that weight loss was the past month issue in controlling her diabetes. 03/11/2025 Popliteal pain (ICD- 10 - M79.609) An ultrasound of the right leg was ordered to rule out a blood clot. She subsequently returned as negative but did show a 2.7 cm popliteal cyst. 03/11/2025 Essential hypertensi on (ICD-10 - I10) The blood pressure is currently normal. No change in her regimen was necessary. 03/11/2025 Overweight (BMI 25.0-29.9) (ICD-10 - E66.3) Her body mass index is 28. I reviewed with her the relationship between weight and control of diabetes and the long-term consequences of uncontrolled hyperglycemia. 03/11/2025 Encounter for screening mammogram for malignant neoplasm of breast (ICD-10 - Z12.31) Her annual screening mammogram was ordered. 03/11/2025 Essential tremor (ICD-10 - G25.0) The tremor was not present today. She has had no difficulty conducting activities of daily life. 03/11/2025 Ureterolithiasis (ICD-10 - N20.1) She has had no renal colic or kidney stone since her last visit. 03/11/2025 Mixed hyperlipidemia (ICD-10 - E78.2) Her lipids are currently stable and no change in her regimen was necessary today. 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 Her face was symmetrical. Plan Of Treatment Medication Medication Name Sig Start Date Stop Date Notes BD Pen Needle Arabella U/F 32G X 4 MM Check blood sugar 4 times a day 06/11/2024 E11.9 Type 2 diabetes mellitus Vitamin D (Ergocalciferol) 1.25 MG (09275 UT) TAKE 1 CAPSULE BY MOUTH ONE TIME PER WEEK Lantus SoloStar 100 UNIT/ML INJECT 100 UNITS EVERY EVENING SUBCUTANEOUSLY metFORMIN HCl 500 MG TAKE 2 TABLETS BY M OUTH TWICE A DAY WITH A MEAL 90 Irbesartan 150 MG TAKE 1 TABLET BY PRADEEP TH EVERY DAY Gabapentin 300 MG TAKE 1 CAPSULE BY MO UTH EVERY DAY Montelukast Sodium 10 MG TAKE 1 TABLET BY MOUTH EVERY DAY NovoLOG FlexPen 100 UNIT/ML 15 units Subcutaneous 3 times a day with meals 12/25/2024 E11.9 Type 2 Diabetes OneTouch Verio - USE TO TEST 3 TIMES A DAY Accu-Chek FastClix Lancets - USE 4 TIMES A DAY 90 Simvastatin 20 MG 1 tablet Orally Once a day Lantus SoloStar 100 UNIT/ML 75 units Subcutaneous twice a day for 28 days 03/12/2025 Pending Test Test Name Order Date PROFILE, FASTING (COMPREHENSIVE METABOLI C) 03/11/2025 CBC w DIFF 03/11/2025 US LEG RT VENOUS DOPPLER 03/11/2025 Lipid Panel 03/11/2025 Microalbumin, Random 03/11/2025 MM screening mammo BI 03/11/2025 Hemoglobin A1c 03/11/2025 Next Appt Details Follow Up: 3 months, Reason: OV review labs Provider Name:Harjeet Herman , 06/10/2025 09:00:00 AM, [address] [place] [address] [address], [place], [phone], Provider Name:Harjeet Herman , 11/11/2025 09:30:00 AM, [address] [facility] [address] [address], [place], [address], Progress Notes * DOUGLAS NUNODOB: [birth year] (69 yo F)Acc No.[id number]:03/11/2025 Progress Notes Patient: DOUGLAS SMITH Provider: Belén Herman MD :1955 A ge:69 Y S ex:Female Date:03/11/2025 Address:[address] [place] [address] [id number] Subjective: * Chief Complaints: * R ight leg edemaRight knee popliteal painDiabetes. SinceHypertensionHyperlipidemia * HPI: C OVID-19 Screening: She returns to the office for ongoing medical management. Comprehensive blood work was available and was reviewed with her in detail. Her diabetes has been stable But her hemoglobin A1c is 8.9. We reviewed her blood work and her weight and weight loss strategy and medication. I increased her Lantus insulin in today for a followup visit. The near future. An ultrasound of the right leg was ordered and was subsequently returns as showing only a 2.7 cm popliteal cyst with no DVT. Questions H ave you had any new onset fever, chills, cough, congestion, sore throat, shortness of breath, muscle aches? N o * ROS: G eneral/Constitutional: pain R ight knee. C hills d enies. F atigue?admits. F ever d enies. E NT: Decreased hearing d enies. R espiratory: Cough d enies. C ardiovascular: [...] section x2 lithotripsy age 50, Dr. Reveles 2004cystoscopy, stent insertion left ureter, retro-grade pyelogram 2005colonoscopy, Dr. Landaverde, [facility], negative 2011history of one tubal [...] dditional Findings: Tobacco non-user A ggressive nonsmoker S he and her ,Angelo, were both born in [place]. 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 She has a son Sai and a daughter Jaja and 3 grandchildren. * Medications: T akingNovoLOG FlexPen 100 UNIT/ML Solution Pen-injector 15 units Subcutaneous 3 times a day with meals As needed, Notes to Pharmacist: E11.9 Type 2 DiabetesMontelukast Sodium 10 MG Tablet TAKE 1 TABLET BY MOUTH EVERY DAY Gabapentin 300 MG Capsule TAKE 1 CAPSULE BY MOUTH EVERY DAY Simvastatin 20 MG Tablet 1 tablet Orally Once a day OneTouch Verio - Strip USE TO TEST 3 TIMES A DAY Accu-Chek FastClix Lancets - Miscellaneous USE 4 TIMES A DAY 90 Vitamin D (Ergocalciferol) 1.25 MG (37789 UT) Capsule TAKE 1 CAPSULE BY MOUTH ONE TIME PER WEEK Lantus SoloStar 100 UNIT/ML Solution Pen-injector INJECT 100 UNITS EVERY EVENING SUBCUTANEOUSLY metFORMIN HCl 500 MG Tablet TAKE 2 TABLETS BY MOUTH TWICE A DAY WITH A MEAL 90 Irbesartan 150 MG Tablet TAKE 1 TABLET BY MOUTH EVERY DAY BD Pen Needle Arabella U/F 32G X 4 MM Miscellaneous Check blood sugar 4 times a day , Notes to Pharmacist: E11.9 Type 2 diabetes mellitusMedication List reviewed and reconciled with the patientTaking NovoLOG FlexPen 100 UNIT/ML Solution Pen-injector 15 units Subcutaneous 3 times a day with meals As needed, Notes to Pharmacist: E11.9 Type 2 DiabetesTaking Montelukast Sodium 10 MG Tablet TAKE 1 TABLET BY MOUTH EVERY DAY Taking Gabapentin 300 MG Capsule TAKE 1 CAPSULE BY MOUTH EVERY DAY Taking Simvastatin 20 MG Tablet 1 tablet Orally Once a day Taking OneTouch Verio - Strip USE TO TEST 3 TIMES A DAY Taking Accu-Chek FastClix Lancets - Miscellaneous USE 4 TIMES A DAY 90 Taking Vitamin D (Ergocalciferol) 1.25 MG (62553 UT) Capsule TAKE 1 CAPSULE BY MOUTH ONE TIME PER WEEK Taking Lantus SoloStar 100 UNIT/ML Solution Pen-injector INJECT 100 UNITS EVERY EVENING SUBCUTANEOUSLY Taking metFORMIN HCl 500 MG Tablet TAKE 2 TABLETS BY MOUTH TWICE A DAY WITH A MEAL 90 Taking Irbesartan 150 MG Tablet TAKE 1 TABLET BY MOUTH EVERY DAY Taking BD Pen Needle Arabella U/F 32G X 4 MM Miscellaneous Check blood sugar 4 times a day , Notes to Pharmacist: E11.9 Type 2 diabetes mellitusMedication List reviewed and reconciled with the patient * Allergies: Shanique Meng[Allergies Verified] Objective: * Vitals: H t: 60, Wt:148, BMI:28.9, BP:132/62, HR:78, Temp:97.3, Wt-k.13. * P ast Orders: Lab:Hemoglobin A1c * Collection Date 03/01/2025 11/03/2024 06/05/2024 Collection Time 06:38 AM 06:30 AM 08:13 AM Order Date 03/01/2025 11/03/2024 06/05/2024 Hemoglobin A1c % 8.9 H (Ref Range: <6.0 %) 8.3 H (Ref Range: <6.0 %) 8.7 H (Ref Range: <6.0 %) Estimated Average Glucose 209 (Ref Range: mg/dL) 192 (Ref Range: mg/dL) 203 (Ref Range: mg/dL) * Lab:Complete Blood Count Aut o Diff * Collection Date 03/01/2025 11/03/2024 06/05/2024 Collection Time 06:38 AM 06:30 AM 08:13 AM Order Date 03/01/2025 11/03/2024 06/05/2024 White Blood Count 7.5 (Ref Range: 4.8-10.8 X10*3/uL) 7.8 (Ref Range: 4.8-10.8 X10*3/uL) 6.7 (Ref Range: 4.8-10.8 X10*3/uL) Red Blood Count 4.02 L (Ref Range: 4.20-5.50 X10*6/uL) 4.10 L (Ref Range: 4.20-5.50 X10*6/uL) 3.87 L (Ref Range: 4.20-5.50 X10*6/uL) Hemoglobin 12.8 (Ref Range: 12.0-16.0 g/dl) 13.3 (Ref Range: 12.0-16.0 g/dl) 12.5 (Ref Range: 12.0-16.0 g/dl) Hematocrit 38.5 (Ref Range: 37.0-47.0 %) 39.4 (Ref Range: 37.0-47.0 %) 37.5 (Ref Range: 37.0-47.0 %) Mean Corpuscular Volume 95.8 (Ref Range: 80.0-98.0 fL) 96.1 (Ref Range: 80.0-98.0 fL) 96.9 (Ref Range: 80.0-98.0 fL) Mean Corpuscular Hemoglobin 31.8 (Ref Range: 27.0-33.0 pg) 32.4 (Ref Range: 27.0-33.0 pg) 32.3 (Ref Range: 27.0-33.0 pg) Mean Corpuscular HGB Conc 33.2 (Ref Range: 31.0-35.0 g/dl) 33.8 (Ref Range: 31.0-35.0 g/dl) 33.3 (Ref Range: 31.0-35.0 g/dl) Red Cell Distribution Width 12.9 (Ref Range: 11.0-16.0 %) 12.8 (Ref Range: 11.0-16.0 %) 13.1 (Ref Range: 11.0-16.0 %) Platelet Count 171 (Ref Range: 160-400 X10*3/uL) 201 (Ref Range: 160-400 X10*3/uL) 164 (Ref Range: 160-400 X10*3/uL) Mean Platelet Volume 11.9 (Ref Range: 9.4-12.3 fL) 11.4 (Ref Range: 9.4-12.3 fL) 11.2 (Ref Range: 9.4-12.3 fL) Neutrophils Percent Auto 45.1 (Ref Range: 45-73 %) 46.9 (Ref Range: 45-73 %) 53.2 (Ref Range: 45-73 %) Imm Gran Pct Auto 0.4 (Ref Range: 0.0-0.4 %) 0.4 (Ref Range: 0.0-0.4 %) 0.5 H (Ref Range: 0.0-0.4 %) Lymphocytes Percent Auto 37.7 (Ref Range: 20-40 %) 33.1 (Ref Range: 20-40 %) 29.0 (Ref Range: 20-40 %) Monocytes Percent Auto 10.3 (Ref Range: 2-11 %) 11.1 H (Ref Range: 2-11 %) 11.1 H (Ref Range: 2-11 %) Eosinophils Percent Auto 6.1 H (Ref Range: 0-4 %) 8.1 H (Ref Range: 0-4 %) 5.7 H (Ref Range: 0-4 %) Basophils Percent Auto 0.4 (Ref Range: 0-2 %) 0.4 (Ref Range: 0-2 %) 0.5 (Ref Range: 0-2 %) NRBC Pct Auto 0.0 (Ref Range: 0.0-0.2 /100WBC) 0.0 (Ref Range: 0.0-0.2 /100WBC) 0.0 (Ref Range: 0.0-0.2 /100WBC) Neutrophils Absolute Auto 3.4 (Ref Range: 2.0-8.3 x10*3/uL) 3.7 (Ref Range: 2.0-8.3 x10*3/uL) 3.6 (Ref Range: 2.0-8.3 x10*3/uL) Imm Gran Abs Auto 0.03 (Ref Range: 0.00-0.03 X10*3/uL) 0.03 (Ref Range: 0.00-0.03 X10*3/uL) 0.03 (Ref Range: 0.00-0.03 X10*3/uL) Lymphocytes Absolute Auto 2.8 (Ref Range: 1.2-4.9 X10*3/uL) 2.6 (Ref Range: 1.2-4.9 X10*3/uL) 1.9 (Ref Range: 1.2-4.9 X10*3/uL) Monocytes Absolute Auto 0.8 (Ref Range: 0.1-1.2 X10*3/uL) 0.9 (Ref Range: 0.1-1.2 X10*3/uL) 0.7 (Ref Range: 0.1-1.2 X10*3/uL) Eosinophils Absolute Auto 0.5 H (Ref Range: 0.0-0.4 X10*3/uL) 0.6 H (Ref Range: 0.0-0.4 X10*3/uL) 0.4 (Ref Range: 0.0-0.4 X10*3/uL) Basophils Absolute Auto 0.0 (Ref Range: 0.0-0.2 X10*3/uL) 0.0 (Ref Range: 0.0-0.2 X10*3/uL) 0.0 (Ref Range: 0.0-0.2 X10*3/uL) NRBC Abs Auto 0.000 (Ref Range: 0.0-0.012 X10*3/uL) 0.000 (Ref Range: 0.0-0.012 X10*3/uL) 0.000 (Ref Range: 0.0-0.012 X10*3/uL) * Lab:[facility] * Collection Date 03/01/2025 11/03/2024 06/05/2024 Collection Time 06:38 AM 06:30 AM 08:13 AM Order Date 03/01/2025 11/03/2024 06/05/2024 Sodium 141 (Ref Range: 135-145 mmol/L) 141 (Ref Range: 135-145 mmol/L) 142 (Ref Range: 135-145 mmol/L) Bilirubin Total 0.4 (Ref Range: 0.0-1.0 mg/dL) 0.8 (Ref Range: 0.0-1.0 mg/dL) 0.5 (Ref Range: 0.0-1.0 mg/dL) Aspartate Amino Transferase 54 H (Ref Range: 5-31 U/L) 41 H (Ref Range: 5-31 U/L) 33 H (Ref Range: 5-31 U/L) Alanine Aminotransferase 63 H (Ref Range: 0-31 U/L) 45 H (Ref Range: 0-31 U/L) 40 H (Ref Range: 0-31 U/L) Total Protein 6.4 L (Ref Range: 6.5-8.0 g/dL) 7.2 (Ref Range: 6.5-8.0 g/dL) 6.4 L (Ref Range: 6.5-8.0 g/dL) Albumin Level 4.1 (Ref Range: 3.5-5.0 g/dL) 4.1 (Ref Range: 3.5-5.0 g/dL) 3.9 (Ref Range: 3.5-5.0 g/dL) Alkaline Phosphatase 75 (Ref Range: 39-117 U/L) 78 (Ref Range: 39-117 U/L) 83 (Ref Range: 39-117 U/L) Potassium 4.2 (Ref Range: 3.3-5.1 mmol/L) 4.2 (Ref Range: 3.3-5.1 mmol/L) 3.9 (Ref Range: 3.3-5.1 mmol/L) Chloride 109 H (Ref Range: 96-108 mmol/L) 108 (Ref Range: 96-108 mmol/L) 107 (Ref Range: 96-108 mmol/L) Carbon Dioxide 23 (Ref Range: 22-29 mmol/L) 25 (Ref Range: 22-29 mmol/L) 27 (Ref Range: 22-29 mmol/L) Anion Gap 13 (Ref Range: 12-20) 12 (Ref Range: 12-20) 12 (Ref Range: 12-20) Blood Urea Nitrogen 13 (Ref Range: 9-16 mg/dL) 17 H (Ref Range: 9-16 mg/dL) 11 (Ref Range: 9-16 mg/dL) Creatinine 0.77 (Ref Range: 0.5-1.4 mg/dL) 0.84 (Ref Range: 0.5-1.4 mg/dL) 0.77 (Ref Range: 0.5-1.4 mg/dL) Estimated Glomerular Filt Rate > 60 > 60 > 60 Glucose Fasting 153 H (Ref Range: 60-99 mg/dL) 118 H (Ref Range: 60-99 mg/dL) 98 (Ref Range: 60-99 mg/dL) Calcium 9.2 (Ref Range: 8.4-10.2 mg/dL) 9.0 (Ref Range: 8.4-10.2 mg/dL) 9.2 (Ref Range: 8.4-10.2 mg/dL) * Lab:Lipid Panel * Collection Date 03/01/2025 11/03/2024 06/05/2024 Collection Time 06:38 AM 06:30 AM 08:13 AM Order Date 03/01/2025 11/03/2024 06/05/2024 Triglycerides 220 H (Ref Range: <150 mg/dL) 126 (Ref Range: <150 mg/dL) 182 H (Ref Range: <150 mg/dL) Cholesterol 119 (Ref Range: <200 mg/dL) 117 (Ref Range: <200 mg/dL) 134 (Ref Range: <200 mg/dL) LDL Cholesterol Calculated 36 (Ref Range: <100 mg/dL) 51 (Ref Range: <100 mg/dL) 54 (Ref Range: <100 mg/dL) HDL Cholesterol 39 L (Ref Range: >40 mg/dL) 41 (Ref Range: >40 mg/dL) 44 (Ref Range: >40 mg/dL) * Lab:Microalbumin, Random * Collection Date 03/01/2025 11/03/2024 06/05/2024 Collection Time 06:38 AM 06:30 AM 08:13 AM Order Date 03/01/2025 11/03/2024 06/05/2024 Creatinine Urine 167.98 (Ref Range: mg/dL) 74.69 (Ref Range: mg/dL) 102.31 (Ref Range: mg/dL) Microalbumin Urine 33.0 (Ref Range: mg/L) 7.0 (Ref Range: mg/L) 27.0 (Ref Range: mg/L) Microalbum Creatinine Ratio Ur 19.6 (Ref Range: <30 ug/mg cr) 9.3 (Ref Range: <30 ug/mg cr) 26.3 (Ref Range: <30 ug/mg cr) * Examination: G eneral Examination: GENERAL APPEARANCE: p leasant, well nourished, well developed, in no acute [...] LUNGS: c lear to auscultation . BREASTS: N ot examined. ABDOMEN: b owel sounds normal, no ascites, no organomegaly, no mass, overweight. RECTAL EXAM: n ot examined. MUSCULOSKELETAL: M ild edema right ankle, pain right popliteal fossa. PERIPHERAL PULSES: n ormal. NEUROLOGIC: a lert and oriented, cranial nerves 2-12 grossly intact, deep tendon reflexes 2+ symmetrical, motor strength normal upper and lower extremities, sensory exam intact. PSYCH: a lert, oriented. Assessment: * Assessment: 1. T ype 2 diabetes mellitus without complications - E11.9 (Primary) N otes :I have increased your Lantus insulin to 75 twice a day as her hemoglobin A1c was 8.9. Once again, I made the point that weight loss was the past month issue in controlling her diabetes. 2 . P opliteal pain - M79.609 N otes :An ultrasound of the right leg was ordered to rule out a blood clot. She subsequently returned as negative but did show a 2.7 cm popliteal cyst. 3 . E ssential hypertension - I10 N otes :The blood pressure is currently normal. No change in her regimen was necessary. 4 . O verweight (BMI 25.0-29.9) - E66.3 N otes :Her body mass index is 28. I reviewed with her the relationship between weight and control of diabetes and the long-term consequences of uncontrolled hyperglycemia. 5 . E ncounter for screening mammogram for malignant neoplasm of breast - Z12.31 N otes :Her annual screening mammogram was ordered. 6 . E ssential tremor - G25.0 N otes :The tremor was not present today. She has had no difficulty conducting activities of daily life. 7 . U reterolithiasis - N20.1 N otes :She has had no renal colic or kidney stone since her last visit. 8 . M ixed hyperlipidemia - E78.2 N otes :Her lipids are currently stable and no change in her regimen was necessary today. 9 . H istory of Cooper's palsy - Z86.69 N otes :There was no sign of neuropathy today. Her face was symmetrical. Plan: * Treatment: 2. P opliteal pain L AB: PROFILE, FASTING (COMPREHENSIVE METABOLIC) L AB: CBC w DIFF L AB: Lipid Panel L AB: Microalbumin, Random L AB: Hemoglobin A1c I maging: US LEG RT VENOUS DOPPLER 3. E ssential hypertension L AB: PROFILE, FASTING (COMPREHENSIVE METABOLIC) L AB: CBC w DIFF L AB: Lipid Panel L AB: Microalbumin, Random L AB: Hemoglobin A1c 4. O verweight (BMI 25.0-29.9) L AB: PROFILE, FASTING (COMPREHENSIVE METABOLIC) L AB: CBC w DIFF L AB: Lipid Panel L AB: Microalbumin, Random L AB: Hemoglobin A1c 5. E ncounter for screening mammogram for malignant neoplasm of breast I maging: MM screening mammo BI 6. O thers Continue Simvastatin Tablet, 20 MG, 1 tablet, Orally, Once a day; C ontinue Gabapentin Capsule, 300 MG, TAKE 1 CAPSULE BY MOUTH EVERY DAY; C ontinue Montelukast Sodium Tablet, 10 MG, TAKE 1 TABLET BY MOUTH EVERY DAY; C ontinue NovoLOG FlexPen Solution Pen-injector, 100 UNIT/ML, 15 units, Subcutaneous, 3 times a day with meals As needed, Notes to Pharmacist: E11.9 Type 2 Diabetes; C ontinue OneTouch Verio Strip, -, USE TO TEST 3 TIMES A DAY; C ontinue Accu-Chek FastClix Lancets Miscellaneous, -, USE 4 TIMES A DAY 90; C ontinue Vitamin D (Ergocalciferol) Capsule, 1.25 MG (71310 UT), TAKE 1 CAPSULE BY MOUTH ONE TIME PER WEEK; C ontinue Lantus SoloStar Solution Pen-injector, 100 UNIT/ML, INJECT 100 UNITS EVERY EVENING SUBCUTANEOUSLY; C ontinue metFORMIN HCl Tablet, 500 MG, TAKE 2 TABLETS BY MOUTH TWICE A DAY WITH A MEAL 90; C ontinue Irbesartan Tablet, 150 MG, TAKE 1 TABLET BY MOUTH EVERY DAY. * Procedure Codes: * Preventive Medicine: Counseling: C are goal follow-up plan: Counseling for abnormal BMI given Y es Above Normal BMI Follow-up D ietary management education, guidance, and counseling, Dietary needs education, Exercise promotion: strength training, Exercise promotion: stretching, Feeding regime, Giving encouragement to exercise, Lifestyle education regarding diet, Nutrition / feeding management, Nutrition therapy, Prescribed activity/exercise education, Prescribed diet education, Prescribed dietary intake, Special diet education, Weight monitoring , Intervention, Order not done: Medical or Other reason not done DM Care Plan: P atient Lifestyle Goals P atient wants to be able to manage diabetes without too much effort. T reatment Goals B lood Sugars less than < 115, HbA1C < 7.0. B arriers n o barriers. S elf-Managment Goals W ork on weight loss, with a goal of losing 1 lb per week. * Follow Up: 3 months (Reason: OV review labs) * Images: * Sign off status: Completed true * Provider: Belén Herman MD Date: 0 03/11/2025 Generated for Evgeny jones/Bernabe/eTransmitting on: 1 06:27 AM EDT History and Physical Notes * HPI (History of Present Illness) Category Sub-Category Detail Notes COVID-19 Screening Questions Have you had any new onset fever, chills, cough, congestion, sore throat, shortness of breath, muscle aches?: No Examination Category Sub-Category Detail Notes General Examination [...] PERIPHERAL PULSES: normal BREASTS: Not examined MUSCULOSKELETAL: Mild edema right ank le, pain right popliteal fossa LYMPH NODES: no enlarged lymph no eric,spleen normal RECTAL EXAM: not examined PSYCH: alert, oriented ORAL CAVITY: normal, unremarkable
--- OUTSIDE RECORDS SUMMARY | 2025-03-15 05:56 | XMS_ITS ---
Author Organization Harjeet Herman III, MD Address [address] [place] [facility] [place] [address] Care Team Providers Care Customer Supply Coordinator Name Role Phone Dr. Harjeet Herman III Primary Care Provider [phone] REASON FOR VISIT Questioning Rx Social History Sex Assigned At : Social History Observation Description Sex Assigned At Female Encounters Encounter Location Date Provider Diagnosis Harjeet Herman III, MD [address] [place] [address] [place] [address] 03/15/2025 Harjeet Herman Plan Of Treatment Next Appt Details Provider Name:Harjeet Herman , 06/10/2025 09:00:00 AM, [address] [place] [address] [place], [address], Provider Name:Harjeet Herman , 11/11/2025 09:30:00 AM, [address] [place] [address] [address] [place], [address], Progress Notes * DOUGLAS NUNODOB: [birth year] (69 yo F)Acc No.[id number]:03/15/2025 Patient: DOUGLAS SMITH :1955 A ge:69 Y S ex:Female Address:[address] [place] [address], [phone] * true * Date: Generated for Printi karen/Faesmeg/eTransmitting on: 06:27 AM EDT
--- OUTSIDE RECORDS SUMMARY | 2025-05-31 06:28 | XMS_ITS | Patient Health Record ---
Author Organization Harjeet Herman III, MD Address [address] [place] [address] Care Team Providers Care Contact Lens Blocker Name Role Phone Dr. Harjeet Herman III Primary Care Provider [phone] Allergies Allergen (clinical drug ingredient) Drug/Non Drug [...] ff Reviewed date:06/08/2024 07:07:35 AM Interpretation: Performing Lab:[facility], [address] [place] [phone] Notes/Report: White Blood Count 6.7 4.8-10.8 X10*3/uL [...] NRBC Abs Auto 0.000 0.0-0.012 X10*3/uL Comprehensive [employer]. Panel Fa st Reviewed date:06/08/2024 07:07:36 AM Interpretation: Performing Lab:[facility], [address] [place] [phone] Notes/Report: Sodium 142 135-145 mmol/L Potassium 3.9 3.3-5.1 mmol/L Chloride 107 96-108 mmol/L Carbon Dioxide 27 22-29 mmol/L Anion Gap 12 12-20 Blood Urea Nitrogen 11 9-16 mg/dL Creatinine 0.77 0.5-1.4 mg/dL Estimated Glomerular Filt Rate > 60 NOTE: For -Libyan individuals, multiply the result by 1.210. Chronic [...] Panel Reviewed date:06/08/2024 07:07:36 AM Interpretation: Performing Lab:[facility], [address] [place] [phone] Notes/Report: Triglycerides 182 <150 mg/dL Desirable Triglyceride: [...] Random Reviewed date:06/08/2024 07:07:36 AM Interpretation: Performing Lab:[facility], [address] [place] [phone] Notes/Report: Creatinine Urine 102.31 Microalbumin Urine 27.0 Microalbum/Creatinine Ratio Ur 26.3 <30 ug/mg cr Albumin/Creatinine Ratio Reference Ranges: Normal: < 30 ug/mg creatinine Microalbuminuria: 30 - 300 ug/mg creatinine Clinical Albuminuria: > 300 ug/mg creatinine Hemoglobin A1c Reviewed date:06/08/2024 07:07:36 AM Interpretation: Performing Lab:[facility], [address] [place] [phone] Notes/Report: Hemoglobin A1c % 8.7 <6.0 % [...] average glucose, using the formula of the U4M-Dosrctg Average Glucose study (ADAG), Diabetes Care, Vol.31,#8, Mar. 2007 Complete Blood Count Auto Di ff Reviewed date:11/08/2024 10:10:34 AM Interpretation: Performing Lab:[facility], [address] [place] [phone] Notes/Report: White Blood Count 7.8 4.8-10.8 X10*3/uL [...] NRBC Abs Auto 0.000 0.0-0.012 X10*3/uL Comprehensive [employer] Panel Fa st Reviewed date:11/08/2024 10:10:34 AM Interpretation: Performing Lab:[facility], [address] [place] [phone] Notes/Report: Sodium 141 135-145 mmol/L Potassium 4.2 [...] Panel Reviewed date:11/08/2024 10:10:34 AM Interpretation: Performing Lab:[facility], [address] [place] [phone] Notes/Report: Triglycerides 126 <150 mg/dL Desirable Triglyceride: [...] Random Reviewed date:11/08/2024 10:10:34 AM Interpretation: Performing Lab:[facility], [address] [place] [phone] Notes/Report: Creatinine Urine 74.69 Microalbumin Urine 7.0 Microalbum/Creatinine Ratio Ur 9.3 <30 ug/mg cr Albumin/Creatinine Ratio Reference Ranges: Normal: < 30 ug/mg creatinine Microalbuminuria: 30 - 300 ug/mg creatinine Clinical Albuminuria: > 300 ug/mg creatinine Hemoglobin A1c Reviewed date:11/08/2024 10:10:34 AM Interpretation: Performing Lab:[facility], [address] [place] [phone] Notes/Report: Hemoglobin A1c % 8.3 <6.0 % [...] average glucose, using the formula of the H3G-Dbtdmym Average Glucose study (ADAG), Diabetes Care, Vol.31,#8, 2007 Complete Blood Count Auto Di ff Reviewed date:03/07/2025 09:45:33 AM Interpretation: Performing Lab:[facility], [address] [place] [phone] Notes/Report: White Blood Count 7.5 4.8-10.8 X10*3/uL [...] NRBC Abs Auto 0.000 0.0-0.012 X10*3/uL Comprehensive [employer]. Panel Fa st Reviewed date:03/07/2025 09:45:33 AM Interpretation: Performing Lab:[facility], [address] [place] [phone] Notes/Report: Sodium 141 135-145 mmol/L Potassium 4.2 [...] Panel Reviewed date:03/07/2025 09:45:33 AM Interpretation: Performing Lab:[facility], [address] [place] [phone] Notes/Report: Triglycerides 220 <150 mg/dL Desirable Triglyceride: [...] Random Reviewed date:03/07/2025 09:45:33 AM Interpretation: Performing Lab:[facility], [address] [place] [phone] Notes/Report: Creatinine Urine 167.98 Microalbumin Urine 33.0 Microalbum/Creatinine Ratio Ur 19.6 <30 ug/mg cr Albumin/Creatinine Ratio Reference Ranges: Normal: < 30 ug/mg creatinine Microalbuminuria: 30 - 300 ug/mg creatinine Clinical Albuminuria: > 300 ug/mg creatinine Hemoglobin A1c Reviewed date:03/07/2025 09:45:33 AM Interpretation: Performing Lab:[facility], [address] [place] [phone] Notes/Report: Hemoglobin A1c % 8.9 <6.0 % [...] average glucose, using the formula of the C9N-Bqvbfbg Average Glucose study (ADAG), Diabetes Care, Vol.31,#8, 2007 Diabetic Eye Exam Reviewed date:04/19/2025 11:13:00 AM Interpretation:undefined Performing Lab: Notes/Report: undefined MM tomosynthesis screening B I Reviewed date:05/17/2025 05:47:30 AM Interpretation: Performing Lab: Notes/Report: [facility] [address] [place], [place] [address] Mammography Report Signed Patient: Christiana Nuno MR#: [id number] : 1955 Acct:[id number] Age/Sex: 69 / F ADM Date: 05/07/25 Loc: HO.MAMMO Attending Dr: Harjeet Herman MD Ordering Physician: Harjeet Herman MD Results: 0Incompl ete: Needs Additional Imaging Evaluation Date of Service: 05/07/25 Follow Up: Additional Imagi ng Procedure(s): MM tomosynthesis screening BI Accession Number(s): [id number] cc: Harjeet Herman MD Reason For Exam: SCREENING EXAMINATION: MM SCREENING DIGITAL BREAST TOMOSYNTHESIS, BILATERAL CLINICAL INFORMATION: Screening. Asymptomatic. COMPARISON: Mammography: Comparison is made with available priors TECHNIQUE: Digital breast mammography with tomosynthesis is performed in both the craniocaudal and mediolateral oblique views along with computer-aided detection (CAD). FINDINGS: There are scattered areas of fibroglandular density (ACR BI-RADS breast composition Category b). Left: Focal asymmetry upper inner breast middle to posterior depth. No suspicious calcifications or other abnormal findings. Right: There are no significant masses, abnormal calcifications, or other abnormalities. MM/MM tomosynthesis screening BI IMPRESSION: Additional imaging is recommended ASSESSMENT: BI-RADS BI-RADS 0 - Incomplete: Needs additional Imaging. RECOMMENDATION: 1. Additional views of the left breast. 2. Targeted ultrasound if warranted after review of the additional views. 3. Radiology department staff will contact the patient for additional imaging. Additional Imaging required This examination should not preclude the clinical evaluation of a suspicious palpable abnormality. This patient's information was entered into a reminder system with a target due date for their next mammogram. Electronically signed by: Vickie Machuca DO 05/11/2025 02:20 PM EDT Dictated By: Vickie Machuca DO Signed By: <Electronically signed by Vickie Machuca DO in OV> 05/11/25 1420 DD/ 1322 TD/TT: 05/07/25 1344 Manager Engagement: [facility] [address] [place] [address] Mammography Report Signed Patient: Christiana Nuno MR#: [id number] : 1955 Acct:[id number] Age/Sex: 69 / F ADM Date: 05/07/25 Loc: HO.MAMMO Attending Dr: Harjeet Herman MD Ordering Physician: Harjeet Herman MD Results: 0Incompl ete: Needs Additiona l Imaging Evaluation Date of Service: 05/07/25 Follow Up: Additional Imagi ng Procedure(s): MM tomosynthesis screening BI Accession Number(s): [id number] cc: Harjeet Herman MD Reason For Exam: SCREENING EXAMINATION: MM SCREENING DIGITAL BREAST TOMOSYNTHESIS, BILATERAL CLINICAL INFORMATION: Screening. Asymptomatic. COMPARISON: Mammography: Comparison is made with available priors TECHNIQUE: Digital breast mammography with tomosynthesis is performed in both the craniocaudal and mediolateral oblique views along with computer-aided detection (CAD). FINDINGS: There are scattered areas of fibroglandular density (ACR BI-RADS breast composition Category b). Left: Focal asymmetry uppe r inner breast middle to posterior depth. No suspicious calcifications or other abnormal findings. Right: There are no significant masses, abnormal calcifications, or other abnormalities. MM/MM tomosynthesis screening BI IMPRESSION: Additional imaging i s recommended ASSESSMENT: BI-RADS BI-RADS 0 - Incomplete: Needs additional Imaging. RECOMMENDATION: 1. Additional views of the left breast. 2. Targeted ultrasou nd if warranted after review of the additional views. 3. Radiology department staff will contact the patient for additional imaging. Additional Imaging required This examination should not preclude the clinical evaluation of a suspicious palpable abnormality. This patient's information was entered into a reminder system with a target due date for their next mammogram. Electronically prashanth d by: Vickie Machuca DO 05/11/2025 02:20 PM EDT Dictated By: Vickie Machuca DO Signed By: <Electronically signed by Vickie Machuca DO in OV> 05/11/25 1420 DD/ 1322 TD/TT: 05/07/25 1344 Manager Engagement: Reason For Referral No Information Medications Medication [...] 90 Active Vitamin D (Ergocalciferol) 1.25 MG (43453 UT) TAKE 1 CAPSULE BY MOUTH ONE [...] Administered COVID Moderna Bivalent Unknown 06/11/2022 Administered [employer] Unknown 09/23/2023 Administer ed Influenza-iiv4 p-free high dose Unknown 09/23/2023 Administered Comirnaty Pfizer COVID-19 12+ Unknown 05/13/2024 Administered Comirnaty Pfizer COVID-19 12+ Unknown 09/23/2023 Administered Fluzone High-Dose [...] Problem Status W/U Status Risk Notes Problem 153162789 Overweight (BMI 25.0-29.9) (E66.3) Active confirmed Her body mass index is 28. I reviewed with her the relationship between weight and control of diabetes and the long-term consequences of uncontrolled hyperglycemia. Problem 98151547 Type 2 diabetes mellitus without complications (E11.9) Active confirmed I have increased your Lantus insulin to 75 twice a day as her hemoglobin A1c was 8.9. Once again, I made the point that weight loss was the past month issue in controlling her diabetes. Problem 672947541 Mixed hyperlipidemia (E78.2) Active confirmed Her lipids are currently stable and no change in her regimen was necessary today. Problem 913031422 Essential tremor (G25.0) Active confirmed The tremor was not present today. She has had no difficulty conducting activities of daily life. Problem 22178210 Ureterolithiasis (N20.1) Active confirmed She has had no renal colic or kidney stone since her last visit. Problem 57117636 Essential hypertension (I10) Active confirmed The blood pressure is currently normal. No change in her regimen was necessary. 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 She has no difficulty with injections. 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) Active [...] Date Provider Diagnosis Harjeet Herman III, MD [address] [place] [address] [place] [phone] 06/11/2024 Harjeet Herman Type 2 diabetes henry itus without complications E11.9 ; Mixed hyperlipidemia E78.2 ; Overweight (BMI 25.0-29.9) E66.3 ; Essential tremor G25.0 and Ureterolithiasis N20.1 Harjeet Herman III, MD [address] [place] [address] [place] [phone] 11/09/2024 Harjeet Herman Type 2 diabetes henry itus without complications E11.9 ; Essential hypertension I10 ; Mixed hyperlipidemia E78.2 ; Overweight (BMI 25.0-29.9) E66.3 ; longterm current use of insulin Z79.4 ; Essential tremor G25.0 and Ureterolithiasis N20.1 Harjeet Herman III, MD [address] [place] [address] [place] [phone] 03/11/2025 Harjeet Herman Type 2 diabetes henry itus without complications E11.9 ; Popliteal pain M79.609 ; Essential hypertension I10 ; Overweight (BMI 25.0-29.9) E66.3 ; Encounter for screening mammogram for malignant neoplasm of breast Z12.31 ; Essential tremor G25.0 ; Ureterolithiasis N20.1 ; Mixed hyperlipidemia E78.2 and History of Cooper's palsy Z86.69 Harjeet Herman III, MD [address] [place] [address] [place] [phone] 09/22/2024 Harjeet Herman III, MD [address] [place] [address] [place] [phone] 09/24/2024 Harjeet Herman III, MD [address] [place] [address] [place] [phone] 12/25/2024 Harjeet Herman III, MD [address] [place] [address] [address] [place], [place] [address] 12/25/2024 Harjeet Herman Type 2 diabetes henry itus without complications E11.9 Harjeet Herman III, MD [address] [place] [address] [address] [place], [place] [address] 03/15/2025 Harjeet Herman Assessments Encounter Date Diagnosis [...] kidney stone since her last visit. 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 (ICD-10 - [...] C) 11/04/2023 PROFILE, FASTING (COMPREHENSIVE METABOLI C) 05/15/2022 PROFILE, FASTING (COMPREHENSIVE METABOLI C) 06/12/2019 PROFILE, FASTING (COMPREHENSIVE METABOLI C) 07/25/2023 PROFILE, FASTING (COMPREHENSIVE METABOLI C) 01/30/2022 PROFILE, [...] C) 11/09/2024 PROFILE, FASTING (COMPREHENSIVE METABOLI C) 11/22/2022 PROFILE, FASTING (COMPREHENSIVE METABOLI C) 02/19/2020 PROFILE, FASTING (COMPREHENSIVE METABOLI C) 06/11/2024 PROFILE, FASTING (COMPREHENSIVE METABOLI C) 07/17/2022 PROFILE, FASTING (COMPREHENSIVE METABOLI C) 10/16/2019 PROFILE, FASTING (COMPREHENSIVE METABOLI C) 03/28/2023 PROFILE, FASTING (COMPREHENSIVE METABOLI C) 03/06/2024 PROFILE, RANDOM (COMPREHENSIVE METABOLIC ) 05/10/2020 PROFILE, RANDOM (COMPREHENSIVE METABOLIC ) 02/06/2019 HEMOGLOBIN A1C (GLYCOHEMOGLOBIN) 020 HEMOGLOBIN A1C (GLYCOHEMOGLOBIN) 019 HEMOGLOBIN A1C (GLYCOHEMOGLOBIN) [...] (GLYCOHEMOGLOBIN) 020 LIPID PANEL 05/10/2020 LIPID PANEL 02/19/2020 LIPID PANEL 02/06/2019 LIPID PANEL 07/17/2022 LIPID PANEL 10/16/2019 LIPID PANEL 03/28/2023 LIPID PANEL 06/12/2019 LIPID PANEL 11/22/2022 LIPID PANEL 05/15/2022 LIPID PANEL 01/30/2022 LIPID PANEL 10/31/2021 LIPID PANEL 10/31/2018 LIPID PANEL 03/28/2018 LIPID PANEL 08/30/2020 LIPID PANEL 07/25/2018 MICROALBUMIN, RANDOM 02/06/2019 MICROALBUMIN, RANDOM 07/17/2022 MICROALBUMIN, RANDOM 03/28/2023 MICROALBUMIN, RANDOM 05/15/2022 MICROALBUMIN, RANDOM 11/22/2022 MICROALBUMIN, RANDOM 10/31/2021 MICROALBUMIN, RANDOM 03/28/2018 MICROALBUMIN, RANDOM 08/30/2020 CBC w DIFF 11/09/2024 CBC w DIFF 03/28/2018 CBC w DIFF 08/30/2020 CBC w DIFF 05/10/2020 CBC w DIFF 02/19/2020 CBC w DIFF 10/16/2019 CBC w DIFF 11/29/2020 CBC w DIFF 06/12/2019 CBC w DIFF 07/31/2021 CBC w DIFF 01/30/2022 CBC w DIFF 02/06/2019 CBC w DIFF 07/17/2022 CBC w DIFF 03/28/2023 CBC w DIFF 10/31/2018 CBC w DIFF 05/15/2022 CBC w DIFF 11/22/2022 CBC w DIFF 03/31/2021 CBC w DIFF 10/31/2021 CBC w DIFF 03/11/2025 CBC w DIFF 07/25/2018 MAMMOGRAM DIGITAL BILATERAL SCREEN 03/28 MAMMOGRAM DIGITAL BILATERAL SCREEN 11/29 MAMMOGRAM DIGITAL BILATERAL SCREEN 10/16 MAMMOGRAM DIGITAL BILATERAL SCREEN 01/30 MAMMOGRAM DIGITAL BILATERAL SCREEN 02/06 MAMMOGRAM DIGITAL BILATERAL SCREEN 03/28 US LEG RT VENOUS DOPPLER 03/11/2025 VITAMIN D 25-OH TOTAL 06/12/2019 CBC WITH AUTO DIFF 06/11/2024 CBC WITH AUTO DIFF 03/06/2024 CBC WITH AUTO DIFF 11/04/2023 CBC WITH AUTO DIFF 07/25/2023 Lipid Panel 03/31/2021 Lipid Panel 03/11/2025 Lipid Panel 11/09/2024 Lipid Panel 06/11/2024 Lipid Panel 03/06/2024 Lipid Panel 11/04/2023 Lipid Panel 07/25/2023 Lipid Panel 11/29/2020 Lipid Panel 07/31/2021 Microalbumin, Random 03/11/2025 Microalbumin, Random 11/09/2024 Microalbumin, Random 06/11/2024 Microalbumin, Random 03/06/2024 Microalbumin, Random 11/04/2023 Microalbumin, Random 07/25/2023 Microalbumin, Random 11/29/2020 Microalbumin, Random 07/31/2021 MM screening mammo BI 03/11/2025 Hemoglobin A1c 11/29/2020 Hemoglobin A1c 03/11/2025 Hemoglobin A1c 11/09/2024 Hemoglobin A1c 06/11/2024 Hemoglobin A1c 03/06/2024 Hemoglobin A1c 11/04/2023 Hemoglobin A1c 07/25/2023 Next Appt Details Provider Name:Harjeet Herman , 06/10/2025 09:00:00 AM, [address] [place] [address] [address], [place], [address], Provider Name:Harjeet Herman , 11/11/2025 09:30:00 AM, [address] [place] [address] [address], [place], [address], Insurance Providers Payer Name Payer Address Payer Phone Subscriber Number Group Number Insured Name Patient Relationship to Insured Coverage Start Date Coverage End Date [employer] [facility] [address] [place], [place] [id number] [phone] [id number] CHRISTIANA NUNO Self - patient is the insured MEDICARE NGS [address] [place] [address] [id number] CHRISTIANA NUNO Self - patient is the insured Medical (General) History Medical History History ICD Code Asthma, unspecified asthma s everity, unspecified whether complicated, unspecified whether persistent J45.909 longterm current use of insulin Z79.4 Type 2 diabetes mellitus without complic ations E11.9 Hypertension, unspecified type I10 Hyperlipidemia, unspecified hyperlipidem ia type E78.5 Bursitis of left shoulder M75.52 essential tremor calcium oxalate kidney stone 2004 hyperplastic polyps of the rectum 2013 Cooper's palsy obesity, BMI 30 Surgical History Surgery Date(Month/Year) No history history of one tubal colonoscopy, Dr. Landaverde, [facility], negative 2010 cystoscopy, stent insertion left ureter, retro-grade pyelogram 2005 lithotripsy age 50, Dr. Reveles 2005 section x2 Hospitalization History Reason Date(Month/Year) No history
--- OUTSIDE RECORDS SUMMARY | 2025-05-31 06:28 | XMS_ITS | Patient Health Record ---
Author Organization [facility] Address [address] [place] [address] Care Team Providers Care Log Haul Operator Name Role Phone Kurt Ojeda Primary Care Provider Harjeet Horowitz Unavailable [phone] Reason For Referral No Information Medications Medication [...] Problem Screening for malignant neoplasm of colon (026978709) Special screening for malignant neoplasms, colon (V76.51) Active confirmed Plan Of Treatment Future Test Test Name Order Date COLONOSCOPY 05/02/2011 Insurance Providers Payer Name Payer Address Payer Phone Subscriber Number Group Number Insured Name Patient Relationship to Insured Coverage Start Date Coverage End Date [facility] [address] [place] [phone] [id number] DOUGLAS NUNO Self - patient is the insured Medical (General) History Medical History History ICD Code DM HTN Hyperlipidemia Asthma Denies [place],CVA,renal disease Kidney stones, treated with ESWL Surgical History Surgery Date(Month/Year) C-sections
[2025-05-31 10:38] LABS: MANUAL DIFF FLAG NO
[2025-05-31 10:43] LABS: Hematocrit 36.8 % (37.0-47.0); Hemoglobin 12.4 g/dl (12.0-16.0); Imm Gran Abs Auto 0.03 X10*3/uL (0.00-0.03); Imm Gran Pct Auto 0.5 % (0.0-0.4); Lymphocytes Absolute Auto 2.5 X10*3/uL (1.2-4.9); Mean Corpuscular HGB Conc 33.7 g/dl (31.0-35.0); Mean Corpuscular Hemoglobin 32.5 pg (27.0-33.0); Mean Corpuscular Volume 96.3 fL (80.0-98.0); NRBC Abs Auto 0.000 X10*3/uL (0.0-0.012); NRBC Pct Auto 0.0 /100WBC (0.0-0.2); Platelet Count 145 X10*3/uL (160-400); Red Blood Count 3.82 X10*6/uL (4.20-5.50); White Blood Count 6.4 X10*3/uL (4.8-10.8)
[2025-05-31 10:52] LABS: Alanine Aminotransferase 66 U/L (0-31); Albumin Level 4.0 g/dL (3.5-5.0); Alkaline Phosphatase 89 U/L (39-117); Anion Gap 10 (12-20); Aspartate Amino Transferase 56 U/L (5-31); Blood Urea Nitrogen 17 mg/dL (9-16); Calcium 9.6 mg/dL (8.4-10.2); Carbon Dioxide 27 mmol/L (22-29); Chloride 109 mmol/L (96-108); Cholesterol 132 mg/dL (<200); Estimated Glomerular Filt Rate > 60; HDL Cholesterol 45 mg/dL (>40); Potassium 4.2 mmol/L (3.3-5.1); Sodium 142 mmol/L (135-145); Total Protein 6.5 g/dL (6.5-8.0); Triglycerides 104 mg/dL (<150)
[2025-05-31 11:33] LABS: Microalbum/Creatinine Ratio Ur 16.1 ug/mg cr (<30)
== END 2025-05-31 06:26 | disposition home or self-care (01) ==
LOC: HO.HMGCLDS 06:25
PROVIDERS: PCP Internal Medicine Medical Oncology; Visit Provider Internal Medicine Medical Oncology
DX: I10 Essential (primary) hypertension (principal); E11.9 Type 2 diabetes mellitus without complications; M79.609 Pain in unspecified limb; E66.3 Overweight
CPT/HCPCS: 36415; 80053; 80061; 82043; 82570; 83036; 85025

== ENCOUNTER 2025-06-01 09:43 | Outpatient (REF) | payer MEDICARE, SELFPAY ==
--- OUTSIDE RECORDS SUMMARY | 2024-11-09 05:30 | XMS_ITS ---
Author Organization Harjeet Herman III, MD Address [address] [place] [place] [address] Care Team Providers Care Manager Port Name Role Phone Dr. Harjeet Herman III [...] 90 Active Vitamin D (Ergocalciferol) 1.25 MG (61987 UT) TAKE 1 CAPSULE BY MOUTH ONE [...] Date Provider Diagnosis Harjeet Herman III, MD [address] [place] [address] [place] [address] 11/09/2024 Harjeet Herman Type 2 diabetes henry itus without complications E11.9 ; Essential hypertension I10 ; Mixed hyperlipidemia E78.2 ; Overweight (BMI 25.0-29.9) E66.3 ; residential current use of insulin Z79.4 ; Essential [...] excellent appetite. Is avoiding unhealthy eating. 11/09/2024 residential current us e of insulin (ICD-10 - [...] DAY 90 Vitamin D (Ergocalciferol) 1.25 MG (95163 UT) TAKE 1 CAPSULE BY MOUTH ONE [...] Provider Name:Harjeet Herman , 06/10/2025 09:00:00 AM, [address] [place] [address] DR, [place], [address], Provider Name:Harjeet Herman , 11/11/2025 09:30:00 AM, [address] [place] [address] [place], [address], Progress Notes * DOUGLAS NUNODOB: [birth year] (69 yo F)Acc No.[id number]:11/09/2024 Progress Notes Patient: DOUGLAS SMITH Provider: Belén Herman MD :1955 A ge:69 Y S ex:Female Date:11/09/2024 Address:[address] [place], [place] [id number] Subjective: * Chief Complaints: * A nnual Exam * HPI: D epression Screening: She reeturns to the office for her annual physical examination at the age of 69. He says she has been compliant with all of her medications.She and her have recently been on [facility].His lost 3 pounds since her last visit. [...] left ureter, retro-grade pyelogram 2005colonoscopy, Dr. Landaverde, [facility], negative 2011history of one tubal No [...] born in [place]. 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 She has a son Sai and [...] EVENING SUBCUTANEOUSLY Vitamin D (Ergocalciferol) 1.25 MG (49066 UT) Capsule TAKE 1 CAPSULE BY MOUTH [...] SUBCUTANEOUSLY Taking Vitamin D (Ergocalciferol) 1.25 MG (21557 UT) Capsule TAKE 1 CAPSULE BY MOUTH [...] palpation or auscultation. 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 MUSCULOSKELETAL: e xtremities unremarkable, no clubbing, cyanosis [...] ontinue Vitamin D (Ergocalciferol) Capsule, 1.25 MG (40723 UT), TAKE 1 CAPSULE BY MOUTH ONE [...] 0 11/09/2024 Generated for Evgeny jones/Bernabe/Octavioitting on: 11:08 AM EDT History and Physical Notes * [...] lymph no eric,spleen normal RECTAL EXAM: Prefers INTEGRATION MANAGER PSYCH: alert, oriented ORAL CAVITY: normal, unremarkable
--- OUTSIDE RECORDS SUMMARY | 2024-12-25 09:52 | XMS_ITS ---
Author Organization Harjeet Herman III, MD Address [address] [place] [address] Care Team Providers Care Medical Collector Name Role Phone Dr. Harjeet Herman III Primary Care Provider [phone] Medications Medication SIG (Take, Route, Frequency, Duration) [...] 90 Unknown Vitamin D (Ergocalciferol) 1.25 MG (97844 UT) TAKE 1 CAPSULE BY MOUTH ONE [...] Date Provider Diagnosis Harjeet Herman III, MD [address] [place] [address] [place] [address] 12/25/2024 Harjeet Hreman Plan Of Treatment Next Appt Details Provider Name:Harjeet Herman 06/10/2025 09:00:00 AM, [address] [facility] [address], [place], [address], Provider Name:Harjeet Herman , 11/11/2025 09:30:00 AM, [address] [place] [address] [address], [place], [address], Progress Notes * DOUGLAS NUNODOB: [birth year] (69 yo F)Acc No.[id number]:12/25/2024 Patient: SORAYA SMITHYNE :1955 A ge:69 Y S ex:Female Address:[address] [place] [address] [place], [address] Subjective: * Chief Complaints: * * Medical History: * Surgical History: * Hospitalization/Major Diagno stic Procedure: * Medications: U nknownOneTouch Verio - Strip USE TO TEST 3 TIMES A DAY Accu-Chek FastClix Lancets - Miscellaneous USE 4 TIMES A DAY 90 Vitamin D (Ergocalciferol) 1.25 MG (07462 UT) Capsule TAKE 1 CAPSULE BY MOUTH [...] 90 Unknown Vitamin D (Ergocalciferol) 1.25 MG (62088 UT) Capsule TAKE 1 CAPSULE BY MOUTH [...] * Date: Generated for Evgeny jones/Bernabe/Calvin on: 11:08 AM EDT
--- OUTSIDE RECORDS SUMMARY | 2024-12-25 09:56 | XMS_ITS ---
Author Organization Harjeet Herman III, MD Address [address] [place] [address] [place] [address] Care Team Providers Care Ware Cleaner Name Role Phone Dr. Harjeet Herman III [...] Date Provider Diagnosis Harjeet Herman III, MD [address] [place] [address] [place] [address] 12/25/2024 Harjeet Herman Type 2 diabetes mellitus [...] Provider Name:Harjeet Herman , 06/10/2025 09:00:00 AM, [address] [place] [address] [place], [address], Provider Name:Harjeet Herman , 11/11/2025 09:30:00 AM, [address] [place] [address] [address], [place], [address], Progress Notes * EDY NUNOAURELIODOB: [birth year] (69 yo F)Acc No.[id number]:12/25/2024 Patient: DOUGLAS SMITH :1955 A ge:69 Y S ex:Female Address:[address] [place] [address], [place], [address] * Refills Stop HumaLOG KwikPen Solution Pen-injector, 100 UNIT/ML, Subcutaneous, 20 units, three times daily with meals Start NovoLOG FlexPen Solution Pen-injector, 100 UNIT/ML, Subcutaneous, 45 Unspecified, 15 units, 3 times a day with meals, 90 days, Refills=3 * true * Date: Generated for Evgeny jones/Bernabe/Octavioitting on: 1 11:08 AM EDT
--- OUTSIDE RECORDS SUMMARY | 2025-03-11 05:30 | XMS_ITS ---
Author Organization Harjeet Herman III, MD Address [address] [place] [address] Care Team Providers Care Oncology Social Work Name Role Phone Dr. Harjeet Herman III Primary Care Provider [phone] Allergies Allergen (clinical drug ingredient) Drug/Non Drug [...] 06/11/2024 Active Vitamin D (Ergocalciferol) 1.25 MG (39289 UT) TAKE 1 CAPSULE BY MOUTH ONE [...] Provider Diagnosis Harjeet Herman III, MD [address] [place] [address] [place] [address] 03/11/2025 Harjeet Herman Type 2 diabetes henry [...] diabetes mellitus Vitamin D (Ergocalciferol) 1.25 MG (09813 UT) TAKE 1 CAPSULE BY MOUTH ONE [...] Name:Harjeet Herman , 06/10/2025 09:00:00 AM, [address] [place] [address] [address], [place], [address], Provider Name:Harjeet Herman , 11/11/2025 09:30:00 AM, [address] [facility] [place], [phone], Progress Notes * DOUGLAS NUNODOB: [birth year] (69 yo F)Acc No.[id number]:03/11/2025 Progress Notes Patient: DOUGLAS SMITH Provider: Belén Herman MD :1955 A ge:69 Y S ex:Female Date:03/11/2025 Address:[address] [place] [address] [place] [id number] Subjective: * Chief Complaints: * R ight [...] left ureter, retro-grade pyelogram 2005colonoscopy, Dr. Landaverde, [facility], negative 2011history of one tubal No [...] born in [place]. 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
--- OUTSIDE RECORDS SUMMARY | 2025-03-15 05:56 | XMS_ITS ---
Author Organization Harjeet Herman III, MD Address [address] [place] [address] Care Team Providers Care Medical Practice Manager Name Role Phone Dr. Harjeet Herman III Primary Care Provider REASON FOR VISIT Questioning Rx Social History Sex Assigned At : Social History Observation Description Sex Assigned At Female Encounters Encounter Location Date Provider Diagnosis Harjeet Herman III, MD [address] [place] [address] [place] [address] 03/15/2025 Harjeet Herman Plan Of Treatment Next Appt Details Provider Name:Harjeet Herman , 06/10/2025 09:00:00 AM, [address] [place] [address] [place], [address], Provider Name:Harjeet Herman , 11/11/2025 09:30:00 AM, [address] [place] [address] [address] [facility] [place], [address], Progress Notes * DOUGLAS NUNODOB: [birth year] (69 yo F)Acc No.[id number]:03/15/2025 Patient: DOUGLAS SMITH :1955 A ge:69 Y S ex:Female Address:[address] [place] [address], [phone] * true * Date: Generated for Printi karen/Faesmeg/eTransmitting on: 11:09 AM EDT
--- NOTE | ~2025-06-01 | MM_ITS ---
EXAMINATION: MM DIAGNOSTIC DIGITAL BREAST TOMOSYNTHESIS, LEFT Limited left breast ultrasound. CLINICAL INFORMATION: Call back from screening for left breast focal asymmetry. COMPARISON: Mammography: Priors on PACS. TECHNIQUE: Digital breast tomosynthesis is performed in both the craniocaudal and mediolateral oblique views along with computer-aided detection (CAD). Synthesized 2D images are generated from the tomosynthesis. FINDINGS: There are scattered areas of fibroglandular density. Focal asymmetry and the upper inner breast middle to posterior depth partially effaces on additional imaging projections. No suspicious calcifications or other abnormal findings. Targeted color Doppler ultrasound scanning in the upper inner left breast 7-11 o'clock demonstrates a hypoechoic oval solid mass versus complicated cyst at 10:00 6 cm from nipple measuring 5 x 3 x 2 mm this is a questionable correlate for the focal asymmetry. MM/MM tomosynthesis added views L IMPRESSION: Focal asymmetry central inner breast and questionable correlate on ultrasound at 10:00. Recommend 6 month follow-up mammogram and ultrasound for further evaluation of stability. ASSESSMENT: BI-RADS Category 3: Probably benign RECOMMENDATION: 6 Month F/U Results were provided to the patient at time of visit by the technologist. This patient's information was entered into a reminder system with a target due date for their next mammogram. Electronically signed by: Vickie Machuca DO 06/01/2025 03:00 PM EDT
--- OUTSIDE RECORDS SUMMARY | 2025-06-01 11:09 | XMS_ITS | Patient Health Record ---
Author Organization [facility] Address [address] [place] [address] Care Team Providers Care Returned Goods Receiving Clerk Name Role Phone Kurt Ojeda Primary Care Provider Harjeet Horowitz Unavailable [phone] Reason For Referral No Information Medications Medication [...] Problem Screening for malignant neoplasm of colon (410798713) Special screening for malignant neoplasms, colon (V76.51) Active confirmed Plan Of Treatment Future Test Test Name Order Date COLONOSCOPY 05/02/2011 Insurance Providers Payer Name Payer Address Payer Phone Subscriber Number Group Number Insured Name Patient Relationship to Insured Coverage Start Date Coverage End Date [facility] [address] [place] [phone] [id number] DOUGLAS NUNO Self - patient is the insured Medical (General) History Medical History History ICD Code DM HTN Hyperlipidemia Asthma Denies [place],CVA,renal disease Kidney stones, treated with ESWL Surgical History Surgery Date(Month/Year) C-sections
--- OUTSIDE RECORDS SUMMARY | 2025-06-01 11:09 | XMS_ITS | Patient Health Record ---
Author Organization Harjeet Herman III, MD Address [address] [place] [address] Care Team Providers Care Banquet Steward Name Role Phone Dr. Harjeet Herman III Primary Care Provider [phone] Allergies Allergen (clinical drug ingredient) Drug/Non Drug [...] ff Reviewed date:06/08/2024 07:07:35 AM Interpretation: Performing Lab:[facility], [address] [place] [phone] Notes/Report: White Blood Count 6.7 4.8-10.8 X10*3/uL [...] NRBC Abs Auto 0.000 0.0-0.012 X10*3/uL Comprehensive [place]. Panel Fa st Reviewed date:06/08/2024 07:07:36 AM Interpretation: Performing Lab:[facility], [address] [place] [phone] Notes/Report: Sodium 142 135-145 mmol/L Potassium 3.9 3.3-5.1 mmol/L Chloride 107 96-108 mmol/L Carbon Dioxide 27 22-29 mmol/L Anion Gap 12 12-20 Blood Urea Nitrogen 11 9-16 mg/dL Creatinine 0.77 0.5-1.4 mg/dL Estimated Glomerular Filt Rate > 60 NOTE: For -Palestinian individuals, multiply the result by 1.210. Chronic [...] Panel Reviewed date:06/08/2024 07:07:36 AM Interpretation: Performing Lab:[facility], [address] [place] [phone] Notes/Report: Triglycerides 182 <150 mg/dL Desirable Triglyceride: [...] Random Reviewed date:06/08/2024 07:07:36 AM Interpretation: Performing Lab:[facility], [address] [place] [phone] Notes/Report: Creatinine Urine 102.31 Microalbumin Urine 27.0 Microalbum/Creatinine Ratio Ur 26.3 <30 ug/mg cr Albumin/Creatinine Ratio Reference Ranges: Normal: < 30 ug/mg creatinine Microalbuminuria: 30 - 300 ug/mg creatinine Clinical Albuminuria: > 300 ug/mg creatinine Hemoglobin A1c Reviewed date:06/08/2024 07:07:36 AM Interpretation: Performing Lab:[facility], [address] [place] [phone] Notes/Report: Hemoglobin A1c % 8.7 <6.0 % [...] average glucose, using the formula of the N3H-Rxagemx Average Glucose study (ADAG), Diabetes Care, Vol.31,#8, Mar. 2007 Complete Blood Count Auto Di ff Reviewed date:11/08/2024 10:10:34 AM Interpretation: Performing Lab:[facility], [address] [place] [phone] Notes/Report: White Blood Count 7.8 4.8-10.8 X10*3/uL [...] NRBC Abs Auto 0.000 0.0-0.012 X10*3/uL Comprehensive [place]. Panel Fa st Reviewed date:11/08/2024 10:10:34 AM Interpretation: Performing Lab:[facility], [address] [place] [phone] Notes/Report: Sodium 141 135-145 mmol/L Potassium 4.2 [...] Panel Reviewed date:11/08/2024 10:10:34 AM Interpretation: Performing Lab:[facility], [address] [place] [phone] Notes/Report: Triglycerides 126 <150 mg/dL Desirable Triglyceride: [...] Random Reviewed date:11/08/2024 10:10:34 AM Interpretation: Performing Lab:[facility], [address] [place] [phone] Notes/Report: Creatinine Urine 74.69 Microalbumin Urine 7.0 Microalbum/Creatinine Ratio Ur 9.3 <30 ug/mg cr Albumin/Creatinine Ratio Reference Ranges: Normal: < 30 ug/mg creatinine Microalbuminuria: 30 - 300 ug/mg creatinine Clinical Albuminuria: > 300 ug/mg creatinine Hemoglobin A1c Reviewed date:11/08/2024 10:10:34 AM Interpretation: Performing Lab:[facility], [address] [place] [phone] Notes/Report: Hemoglobin A1c % 8.3 <6.0 % [...] average glucose, using the formula of the I4C-Xbuxkfc Average Glucose study (ADAG), Diabetes Care, Vol.31,#8, 2007 Complete Blood Count Auto Di ff Reviewed date:03/07/2025 09:45:33 AM Interpretation: Performing Lab:[facility], [address] [place] [phone] Notes/Report: White Blood Count 7.5 4.8-10.8 X10*3/uL [...] NRBC Abs Auto 0.000 0.0-0.012 X10*3/uL Comprehensive [place]. Panel Fa st Reviewed date:03/07/2025 09:45:33 AM Interpretation: Performing Lab:[facility], [address] [place] [phone] Notes/Report: Sodium 141 135-145 mmol/L Potassium 4.2 [...] Panel Reviewed date:03/07/2025 09:45:33 AM Interpretation: Performing Lab:[facility], [address] [place] [phone] Notes/Report: Triglycerides 220 <150 mg/dL Desirable Triglyceride: [...] Random Reviewed date:03/07/2025 09:45:33 AM Interpretation: Performing Lab:[facility], [address] [place] [phone] Notes/Report: Creatinine Urine 167.98 Microalbumin Urine 33.0 Microalbum/Creatinine Ratio Ur 19.6 <30 ug/mg cr Albumin/Creatinine Ratio Reference Ranges: Normal: < 30 ug/mg creatinine Microalbuminuria: 30 - 300 ug/mg creatinine Clinical Albuminuria: > 300 ug/mg creatinine Hemoglobin A1c Reviewed date:03/07/2025 09:45:33 AM Interpretation: Performing Lab:[facility], [address] [place] [phone] Notes/Report: Hemoglobin A1c % 8.9 <6.0 % [...] average glucose, using the formula of the B2R-Gjvpxsl Average Glucose study (ADAG), Diabetes Care, Vol.31,#8, 2007 Diabetic Eye Exam Reviewed date:04/19/2025 11:13:00 AM Interpretation:undefined Performing Lab: Notes/Report: undefined MM tomosynthesis screening B I Reviewed date:05/17/2025 05:47:30 AM Interpretation: Performing Lab: Notes/Report: [facility] [address] [place], [place] [address] Mammography Report Signed Patient: Christiana Nuno MR#: [id number] : 1955 Acct:[id number] Age/Sex: 69 / F ADM Date: 05/07/25 Loc: HO.MAMMO Attending Dr: Harjeet Herman MD Ordering Physician: Harjeet Herman MD Results: 0Incompl ete: Needs Additional Imaging Evaluation Date of Service: 05/07/25 Follow Up: Additional Imagi ng Procedure(s): MM tomosynthesis screening BI Accession Number(s): [id number] cc: Harjeet Herman MD Reason For Exam: [...] 05/11/25 1420 DD/ 1322 TD/TT: 05/07/25 1344 Track Vehicle Repairer: [facility] [address] [place] [address] Mammography Report Signed Patient: Christiana Nuno MR#: [id number] : 1955 Acct:[id number] Age/Sex: 69 / F ADM Date: 05/07/25 Loc: HO.MAMMO Attending Dr: Harjeet Herman MD Ordering Physician: Harjeet Herman MD Results: 0Incompl ete: Needs Additiona l Imaging Evaluation Date of Service: 05/07/25 Follow Up: Additional Imagi ng Procedure(s): MM tomosynthesis screening BI Accession Number(s): [id number] cc: Harjeet Herman MD Reason For Exam: [...] DO 05/11/2025 02:20 PM EDT Dictated By: Vcikie Machuca DO Signed By: <Electronically signed by Vickie Machuca DO in OV> 05/11/25 1420 DD/ 1322 TD/TT: 05/07/25 1344 Track Vehicle Repairer: Complete Blood Count Auto Di ff (Not yet reviewed by provider) Interpretation: Performing Lab:[facility], [address] [place] [phone] Notes/Report: White Blood Count 6.4 4.8-10.8 X10*3/uL Red Blood Count 3.82 4.20-5.50 X10*6/uL Hemoglobin 12.4 12.0-16.0 g/dl Hematocrit 36.8 37.0-47.0 % Mean Corpuscular Volume 96.3 80.0-98.0 fL Mean Corpuscular Hemoglobin 32.5 27.0-33.0 pg Mean Corpuscular HGB Conc 33.7 31.0-35.0 g/dl Red Cell Distribution Width 13.2 11.0-16.0 % Platelet Count 145 160-400 X10*3/uL Mean Platelet Volume 11.7 9.4-12.3 fL Neutrophils Percent Auto 45.1 45-73 % Imm Gran Pct Auto 0.5 0.0-0.4 % Lymphocytes Percent Auto 38.5 20-40 % Monocytes Percent Auto 11.2 2-11 % Eosinophils Percent Auto 4.2 0-4 % Basophils Percent Auto 0.5 0-2 % NRBC Pct Auto 0.0 0.0-0.2 /100WBC Neutrophils Absolute Auto 2.9 2.0-8.3 x10*3/u L Imm Gran Abs Auto 0.03 0.00-0.03 X10*3/uL Lymphocytes Absolute Auto 2.5 1.2-4.9 X10*3/u L Monocytes Absolute Auto 0.7 0.1-1.2 X10*3/uL Eosinophils Absolute Auto 0.3 0.0-0.4 X10*3/u L Basophils Absolute Auto 0.0 0.0-0.2 X10*3/uL NRBC Abs Auto 0.000 0.0-0.012 X10*3/uL Comprehensive [place]. Panel Fa st (Not yet reviewed by provider) Interpretation: Performing Lab:[facility], [address] [place] [phone] Notes/Report: Sodium 142 135-145 mmol/L Potassium 4.2 3.3-5.1 mmol/L Chloride 109 96-108 mmol/L Carbon Dioxide 27 22-29 mmol/L Anion Gap 10 12-20 Blood Urea Nitrogen 17 9-16 mg/dL Creatinine 0.85 0.5-1.4 mg/dL Estimated Glomerular Filt Rate > 60 Chronic Kidney Disease: Estimated GFR < 60 mL/min/1.73m2 Severe Kidney Disease: Estimated GFR < 15 mL/min/1.73m2 Glucose Fasting 124 60-99 mg/dL A fasting glucose from 100-125 mg/dl is considered impaired (pre-diabetes). Calcium 9.6 8.4-10.2 mg/dL Bilirubin Total 0.5 0.0-1.0 mg/dL Aspartate Amino Transferase 56 5-31 U/L Alanine Aminotransferase 66 0-31 U/L Total Protein 6.5 6.5-8.0 g/dL Albumin Level 4.0 3.5-5.0 g/dL Alkaline Phosphatase 89 39-117 U/L Lipid Panel (Not yet reviewe d by provider) Interpretation: Performing Lab:[address] [phone] Notes/Report: Triglycerides 104 <150 mg/dL Desirable Triglyceride: less than 150 mg/dL Borderline High Triglyceride 150-199 mg/dL High Triglyceride: 200-499 mg/dL Very High Triglyceride: greater than or equal to 5OO mg/dL Cholesterol 132 <200 mg/dL Desirable Cholesterol: less than 200 mg/dL Borderline High Cholesterol: 200-239 mg/dL High Cholesterol: greater than 239 mg/dL LDL Cholesterol Calculated 67 <100 mg/dL Desirable LDL: less than 100 mg/dL Near Optimal/Above Optimal LDL: 110-129 mg/dL Borderline High LDL: 130-159 mg/dL High LDL: 160-189 mg/dL Very High LDL: greater than or equal to 190 mg/dL HDL Cholesterol 45 >40 mg/dL Desirable HDL: greater than 40 mg/dL Note: This HDL assay may give artificially low results in patients with liver disease. Microalbumin, Random (Not ye t reviewed by provider) Interpretation: Performing Lab:[address], [place] [address] Notes/Report: Creatinine Urine 86.95 Microalbumin Urine 14.0 Microalbum/Creatinine Ratio Ur 16.1 <30 ug/mg cr Albumin/Creatinine Ratio Reference Ranges: Normal: < 30 ug/mg creatinine Microalbuminuria: 30 - 300 ug/mg creatinine Clinical Albuminuria: > 300 ug/mg creatinine Hemoglobin A1c (Not yet revi ewed by provider) Interpretation: Performing Lab:[address] [phone] Notes/Report: Hemoglobin A1c % 9.0 <6.0 % Hemoglobin A1C Reference Range Adults: 4.8 - 6.0 % Non diabetic: < 6.0 % Goal: < 7.0 % Additional Action Suggested: > 8.0 % Note: Hemoglobin A1c results are invalid for patients with abnormal amounts of HbF. Blood transfusions may impact the HbA1c concentration in the patient sample. Estimated Average Glucose 212 eAG = Estimated average glucose which is %A1C expressed as average glucose, using the formula of the M8N-Pvpapyb Average Glucose study (ADAG), Diabetes Care, Vol.31,#8, [...] 90 Active Vitamin D (Ergocalciferol) 1.25 MG (41877 UT) TAKE 1 CAPSULE BY MOUTH ONE [...] COVID Moderna Bivalent Unknown 06/11/2022 Administered COMIRNATY GPM[employer] Unknown 09/23/2023 Administer ed Influenza-iiv4 p-free high [...] Problem Status W/U Status Risk Notes Problem 701482207 Overweight (BMI 25.0-29.9) (E66.3) Active confirmed Her body mass index is 28. I reviewed with her the relationship between weight and control of diabetes and the long-term consequences of uncontrolled hyperglycemia. Problem 21504461 Type 2 diabetes mellitus without complications (E11.9) Active confirmed I have increased your Lantus insulin to 75 twice a day as her hemoglobin A1c was 8.9. Once again, I made the point that weight loss was the past month issue in controlling her diabetes. Problem 824118568 Mixed hyperlipidemia (E78.2) Active confirmed Her lipids are currently stable and no change in her regimen was necessary today. Problem 442993073 Essential tremor (G25.0) Active confirmed The tremor was not present today. She has had no difficulty conducting activities of daily life. Problem 51897812 Ureterolithiasis (N20.1) Active confirmed She has had no renal colic or kidney stone since her last visit. Problem 01479875 Essential hypertension (I10) Active confirmed The blood pressure is currently normal. No change in her regimen was necessary. Problem Long-term current use of insulin (654567098) FPC current use of insulin (Z79.4) Active confirmed She understands how to use the insulin and to test urine. She has no difficulty with injections. 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) Active [...] Date Provider Diagnosis Harjeet Herman III, MD [address] [place] [address] [place] [phone] 06/11/2024 Harjeet Herman Type 2 diabetes henry itus without complications E11.9 ; Mixed hyperlipidemia E78.2 ; Overweight (BMI 25.0-29.9) E66.3 ; Essential tremor G25.0 and Ureterolithiasis N20.1 Harjeet Herman III, MD [address] [place] [address] [place] [phone] 11/09/2024 Harjeet Herman Type 2 diabetes henry itus without complications E11.9 ; Essential hypertension I10 ; Mixed hyperlipidemia E78.2 ; Overweight (BMI 25.0-29.9) E66.3 ; FPC current use of insulin Z79.4 ; Essential tremor G25.0 and Ureterolithiasis N20.1 Harjeet Herman III, MD [address] [place] [address] [place] [address] 03/11/2025 Harjeet Herman Type 2 diabetes henry itus without complications E11.9 ; Popliteal pain M79.609 ; Essential hypertension I10 ; Overweight (BMI 25.0-29.9) E66.3 ; Encounter for screening mammogram for malignant neoplasm of breast Z12.31 ; Essential tremor G25.0 ; Ureterolithiasis N20.1 ; Mixed hyperlipidemia E78.2 and History of Cooper's palsy Z86.69 Harjeet Herman III, MD [address] [place] [address] [place] [address] 09/22/2024 Harjeet Herman III, MD [address] [place] [address] [place] [phone] 09/24/2024 Harjeet Herman III, MD [address] [place] [address] [place] [address] 12/25/2024 Harjeet Herman III, MD [address] [place] [address] [place] [address] 12/25/2024 Harjeet Herman Type 2 diabetes henry itus without complications E11.9 Harjeet Herman III, MD [address] [place] [address] [place] [address] 03/15/2025 Harjeet Herman Assessments Encounter Date Diagnosis [...] kidney stone since her last visit. 11/09/2024 heel stainer current us e of insulin (ICD-10 - [...] C) 01/30/2022 PROFILE, FASTING (COMPREHENSIVE METABOLI C) 11/04/2023 PROFILE, FASTING (COMPREHENSIVE METABOLI C) 10/31/2021 PROFILE, FASTING (COMPREHENSIVE METABOLI C) 10/31/2018 PROFILE, FASTING (COMPREHENSIVE METABOLI C) 07/25/2023 PROFILE, FASTING (COMPREHENSIVE METABOLI C) 07/31/2021 PROFILE, FASTING (COMPREHENSIVE METABOLI C) 03/28/2018 PROFILE, FASTING (COMPREHENSIVE METABOLI C) 11/29/2020 PROFILE, FASTING (COMPREHENSIVE METABOLI C) 08/30/2020 PROFILE, FASTING (COMPREHENSIVE METABOLI C) 07/25/2018 PROFILE, FASTING (COMPREHENSIVE METABOLI C) 03/31/2021 PROFILE, FASTING (COMPREHENSIVE METABOLI C) 03/11/2025 PROFILE, FASTING (COMPREHENSIVE METABOLI C) 11/22/2022 PROFILE, FASTING (COMPREHENSIVE METABOLI C) 02/19/2020 PROFILE, FASTING (COMPREHENSIVE METABOLI C) 11/09/2024 PROFILE, FASTING (COMPREHENSIVE METABOLI C) 07/17/2022 PROFILE, FASTING (COMPREHENSIVE METABOLI C) 10/16/2019 PROFILE, FASTING (COMPREHENSIVE METABOLI C) 06/11/2024 PROFILE, FASTING (COMPREHENSIVE METABOLI C) 03/28/2023 PROFILE, FASTING (COMPREHENSIVE METABOLI C) 05/15/2022 PROFILE, FASTING (COMPREHENSIVE METABOLI C) 06/12/2019 PROFILE, FASTING (COMPREHENSIVE METABOLI C) 03/06/2024 PROFILE, RANDOM (COMPREHENSIVE METABOLIC ) 05/10/2020 PROFILE, RANDOM (COMPREHENSIVE METABOLIC ) 02/06/2019 HEMOGLOBIN A1C (GLYCOHEMOGLOBIN) 020 HEMOGLOBIN A1C (GLYCOHEMOGLOBIN) 019 HEMOGLOBIN A1C (GLYCOHEMOGLOBIN) 022 HEMOGLOBIN A1C (GLYCOHEMOGLOBIN) 020 HEMOGLOBIN A1C (GLYCOHEMOGLOBIN) 023 HEMOGLOBIN A1C (GLYCOHEMOGLOBIN) 022 HEMOGLOBIN A1C (GLYCOHEMOGLOBIN) 019 HEMOGLOBIN A1C (GLYCOHEMOGLOBIN) 023 HEMOGLOBIN A1C (GLYCOHEMOGLOBIN) 022 HEMOGLOBIN A1C (GLYCOHEMOGLOBIN) 022 HEMOGLOBIN A1C (GLYCOHEMOGLOBIN) 019 HEMOGLOBIN A1C (GLYCOHEMOGLOBIN) 021 HEMOGLOBIN A1C (GLYCOHEMOGLOBIN) 018 HEMOGLOBIN A1C (GLYCOHEMOGLOBIN) 021 HEMOGLOBIN A1C (GLYCOHEMOGLOBIN) 018 HEMOGLOBIN A1C (GLYCOHEMOGLOBIN) 021 HEMOGLOBIN A1C (GLYCOHEMOGLOBIN) 020 LIPID PANEL 02/19/2020 LIPID PANEL 02/06/2019 LIPID PANEL 07/17/2022 LIPID PANEL 10/16/2019 LIPID PANEL 03/28/2023 LIPID PANEL 05/15/2022 LIPID PANEL 06/12/2019 LIPID PANEL 11/22/2022 LIPID PANEL 01/30/2022 LIPID PANEL 10/31/2021 LIPID PANEL 10/31/2018 LIPID PANEL 03/28/2018 LIPID PANEL 08/30/2020 LIPID PANEL 07/25/2018 LIPID PANEL 05/10/2020 MICROALBUMIN, RANDOM 02/06/2019 MICROALBUMIN, RANDOM 07/17/2022 MICROALBUMIN, RANDOM 03/28/2023 MICROALBUMIN, RANDOM 05/15/2022 MICROALBUMIN, RANDOM 11/22/2022 MICROALBUMIN, RANDOM 10/31/2021 MICROALBUMIN, RANDOM 03/28/2018 MICROALBUMIN, RANDOM 08/30/2020 CBC w DIFF 11/09/2024 CBC w DIFF 08/30/2020 CBC w DIFF 05/10/2020 CBC w DIFF 02/19/2020 CBC w DIFF 11/29/2020 CBC w DIFF 10/16/2019 CBC w DIFF 07/31/2021 CBC w DIFF 06/12/2019 CBC w DIFF 01/30/2022 CBC w DIFF 02/06/2019 CBC w DIFF 10/31/2018 CBC w DIFF 07/17/2022 CBC w DIFF 03/28/2023 CBC w DIFF 05/15/2022 CBC w DIFF 03/31/2021 CBC w DIFF 11/22/2022 CBC w DIFF 10/31/2021 CBC w DIFF 07/25/2018 CBC w DIFF 03/11/2025 CBC w DIFF 03/28/2018 MAMMOGRAM DIGITAL BILATERAL [...] DIFF 11/04/2023 CBC WITH AUTO DIFF 07/25/2023 Complete Blood Count Auto Diff Comprehensive [place]. Panel Fast Lipid Panel 03/11/2025 Lipid Panel 11/09/2024 Lipid Panel 06/11/2024 Lipid Panel 03/06/2024 Lipid Panel 11/04/2023 Lipid Panel 05/31/2025 Lipid Panel 07/25/2023 Lipid Panel 11/29/2020 Lipid Panel 07/31/2021 Lipid Panel 03/31/2021 Microalbumin, Random 03/11/2025 Microalbumin, Random 11/09/2024 Microalbumin, Random 06/11/2024 Microalbumin, Random 03/06/2024 Microalbumin, Random 11/04/2023 Microalbumin, Random 05/31/2025 Microalbumin, Random 07/25/2023 Microalbumin, Random 11/29/2020 Microalbumin, Random 07/31/2021 MM screening mammo BI 03/11/2025 Hemoglobin A1c 11/29/2020 Hemoglobin A1c 03/11/2025 Hemoglobin A1c 11/09/2024 Hemoglobin A1c 06/11/2024 Hemoglobin A1c 03/06/2024 Hemoglobin A1c 11/04/2023 Hemoglobin A1c 05/31/2025 Hemoglobin A1c 07/25/2023 Next Appt Details Provider Name:Harjeet Herman , 06/10/2025 09:00:00 AM, [address] [place] [address] [address], [place], [address], Provider Name:Harjeet Herman , 11/11/2025 09:30:00 AM, [address] [place] [address] [address], [place], [address], Insurance Providers Payer Name Payer Address Payer Phone Subscriber Number Group Number Insured Name Patient Relationship to Insured Coverage Start Date Coverage End Date [facility] [address] [place], [place] [id number] [phone] [id number] CHRISTIANA NUNO Self - patient is the insured MEDICARE NGS [address] [place] [address] [id number] NURYS, CHRISTIANA Self - patient is the insured Medical (General) History Medical History History ICD Code Asthma, unspecified asthma s everity, unspecified whether complicated, unspecified whether persistent J45.909 heel stainer current use of insulin Z79.4 Type 2 diabetes mellitus without complic ations E11.9 Hypertension, unspecified type I10 Hyperlipidemia, unspecified hyperlipidem ia type E78.5 Bursitis of left shoulder M75.52 essential tremor calcium oxalate kidney stone 2005 hyperplastic polyps of the rectum 2013 Cooper's palsy obesity, BMI 30 Surgical History Surgery Date(Month/Year) No history history of one tubal colonoscopy, Dr. Landaverde, [facility], negative 2010 cystoscopy, stent insertion left ureter, retro-grade pyelogram 2004 lithotripsy age 50, Dr. Reveles 2005 section x2 Hospitalization History Reason Date(Month/Year) No history
== END 2025-06-01 09:44 | disposition home or self-care (01) ==
LOC: HO.MAMMO 09:43
PROVIDERS: PCP Internal Medicine Medical Oncology; Visit Provider Internal Medicine Medical Oncology
DX: N64.89 Other specified disorders of breast (principal)
CPT/HCPCS: 76642; 77061; 77065

== ENCOUNTER → 2025-06-01 10:00 | Outpatient (BNV) | payer MEDICARE, SELFPAY | PROVIDERS: PCP Internal Medicine Medical Oncology; Visit Provider Internal Medicine | DX: R92.8 Other abnormal and inconclusive findings on diagnostic imaging of breast (principal) | CPT/HCPCS: 76642; 77065; G0279 ==